=== PATIENT | male | born 1960 | race Caucasian/White ===

== ENCOUNTER 2016-11-23 13:36 | Emergency (ER) | payer MEDICAID, OTHER ==
[2016-11-23] MEDS ORDERED: ACETAMINOPHEN 325 MG TAB As Ordered ONE (16:33)
[2016-11-23] MEDS ORDERED: predniSONE 20 MG TAB As Ordered ONE (16:33)
[2016-11-23] MEDS ORDERED: ALBUTEROL SULFATE 2.5 MG/0.5 ML INH NEB SOLN As Ordered ONE (17:03)
[2016-11-23] MEDS ORDERED: IPRATROPIUM 0.5MG/ALBUTEROL 2.5MG INH SOL UD 3ML (DUONEB)(J7620) As Ordered ONE (17:03)
[2016-11-23] MEDS ORDERED: AZITHROMYCIN 250 MG TAB As Ordered ONE (17:21)
--- NOTE | 2016-11-23 17:21 | REP ---
PA and lateral chest: There are no comparisons. The lung hare are significantly hyperinflated with crowding of the interstitial markings in the lower lung zones, compatible with COPD, requiring clinical confirmation. There are no acute infiltrates or effusions. No masses. Cardiac size is normal. The mine, mediastinum, and bony thorax are unremarkable. Impression: There are no acute cardiopulmonary findings. There are findings compatible with COPD, requiring clinical confirmation. Signed by Washington Walls MD 11/23/2016 05:12 P
--- NOTE | 2016-11-23 17:30 | EDDOCDS ---
Physician Documentation [facility] Name: Newton Justin Age: 56 yrs Sex: Male : 1960 Arrival Date: 11/23/2016 Time: 13:36 Bed PR Private MD: NO PRIMARY PHYSICIAN, . Disposition: 11/23/16 17:21 Discharged to Home/Self Care. Impression: Acute bronchitis, Chronic obstructive pulmonary disease with (acute) exacerbation. - Condition is Stable. - Discharge Instructions: Acute Bronchitis, Asthma, Adult. - Prescriptions for Arnuity Ellipta 200 mcg/actuation Inhalation blister with device - inhale 1 puff by INHALATION route once daily; 1 Pump. Plavix 75 mg Oral Tablet - take 1 tablet by ORAL route once daily; 20 tablet. Hydrochlorothiazide 25 mg Oral Tablet - take 1 tablet by ORAL route once daily .; 30 tablet. Zithromax Z- Roberto 250 mg Oral Tablet - take 1 tablet by ORAL route as directed for 5 days Day 1- take two tablets once. Day 2, 3, 4 , 5 take one tablet once daily.; 6 tablet. Albuterol Sulfate 90 mcg/actuation Inhalation HFA Aerosol Inhaler - inhale 2 puff by INHALATION route every 4 hours As needed; 1 Inhaler. - Medication Reconciliation, Local Pharmacy Hours, Work Release Form - 1 day form. - Follow up: Private Physician; When: Call to arrange an appointment; Reason: Recheck today's complaints, Continuance of care. - Problem is new. - Symptoms have improved. Historical: - Allergies: Codeine Sulfate; - Home Meds: 1. Plavix 75 mg Oral tab 1 tab once daily 2. captopril 50 mg Oral tab 1 tab 2 times per day 3. hydrochlorothiazide 25 mg Oral tab 1 tab once daily 4. Arnuity Ellipta 100 mcg/actuation inhalation dsdv 1 puff once daily - PMHx: CVA (2009); Hypertension; COPD; - PSHx: none; - Social history: Smoking status: Patient uses tobacco products, light tobacco smoker. No barriers to communication noted, The patient speaks fluent Urdu, Speaks appropriately for age. - Family history: Not pertinent. - : The pt / caregiver states he / she is on anticoagulants: Plavix. Home medication list is obtained from the patient. - Exposure Risk Screening:: None identified. Vital Signs: 11/23 13:38 BP 155 / 90; Pulse 93; Resp 18 S; Temp 96.9(O); Pulse Ox 95% on R/A; Weight 106.59 kg / gr2 234.99 lbs (R); Height 5 ft. 10 in. (177.80 cm) (R); Pain 4/10; 17:28 BP 151 / 82; Pulse 83; Resp 18; Temp 97.6(O); Pulse Ox 97% on R/A; Pain 6/10; ct3 13:38 Body Mass Index 33.72 (106.59 kg, 177.80 cm) gr2 MDM: 16:26 predniSONE 60 mg PO once; administer with food or milk ordered. mo1 16:26 Albuterol-Ipratropium 3 ml Inhalation once ordered. mo1 16:26 Albuterol 5 mg Nebulizer once ordered. mo1 16:26 Acetaminophen Tablet 975 mg PO once ordered. mo1 16:27 -Influenza A&B Rapid Antigen - Nose Ordered. EDMS 16:28 Call Respiratory ordered. mo1 16:29 Call Respiratory complete. ct3 16:30 Chest, 2 View (pa\E\lat) Ordered. EDMS 17:02 -Influenza A&B Rapid Antigen - Nose Reviewed. mo1 17:18 azithromycin 500 mg PO once ordered. mo1 17:27 Chest, 2 View (pa\E\lat) Reviewed. mo1 Administered Medications: 16:35 Drug: Acetaminophen 975 mg [acetaminophen 325 mg tablet (3 tabs)] Route: PO; ttb 16:36 Drug: predniSONE 60 mg [prednisone 20 mg tablet (3 tabs)] Route: PO; ttb 17:10 Drug: Albuterol-Ipratropium 3 ml [ipratropium-albuterol 0.5 mg-3 mg(2.5 mg base)/3 mL js11 nebulization soln (3 mL)] Route: Inhalation; 17:10 Drug: Albuterol 5 mg [albuterol sulfate 2.5 mg/0.5 mL solution for nebulization (1 mL)] js11 Route: Nebulizer; 17:23 Drug: azithromycin 500 mg [azithromycin 250 mg tablet (2 tabs)] Route: PO; ttb Signatures: Dispatcher MedHost EDMS Randi Wright RN RN hs1 Marta Fernandez, WELFARE OFFICER WELFARE OFFICER ct3 Ines Dunham RN RN ttb Dae Wong PA PA mo1 Nick Feng js11 The chart was reviewed and I authenticate all verbal orders and agree with the evaluation and treatment provided.Corrections: (The following items were deleted from the chart) 16:33 16:27 Chest, 1 view+XR ordered. EDMS EDMS MTDD
--- NOTE | 2016-11-23 17:30 | EDDOCDS ---
Nurse's Notes [facility] Name: Newton Justin Age: 56 yrs Sex: Male : 1960 Arrival Date: 11/23/2016 Time: 13:36 Bed PR2 / Private MD: NO PRIMARY PHYSICIAN, . Diagnosis: Acute bronchitis;Chronic obstructive pulmonary disease with (acute) exacerbation Presentation: 11/23 13:50 Presenting complaint: Patient states: believes he is having a flare up of COPD and hs1 patient states he is severely SOB any time he exerts himself. Patient states he feels like he is starting to become worse and isn't getting better. Adult Sepsis Screening: The patient does not have new or worsening altered mentation. Patient's respiratory rate is less than 22. Systolic blood pressure is greater than 100. Patient has a qSOFA score of 0- Negative Sepsis Screen. Suicide/Homicide risk assessment- the patient denies having any suicidal and/or homicidal ideations and does not present with any other emotional, behavioral or mental health complaints. Status: Patient is not a customer service associate or dependent. Transition of care: patient was not received from another setting of care. 13:50 Acuity: PEARL Level 3 hs1 13:50 Method Of Arrival: Walkin/Carried/Asstd hs1 Triage Assessment: 13:52 General: Appears in no apparent distress, Behavior is appropriate for age, cooperative. hs1 Pain: Location: chest Pain currently is 8 out of 10 on a pain scale. Quality of pain is described as pressure. HIV screening NA for this visit Offered previously. Respiratory: Onset: The symptoms/episode began/occurred 1 week, Reports shortness of breath at rest on exertion. Historical: - Allergies: Codeine Sulfate; - Home Meds: 1. Plavix 75 mg Oral tab 1 tab once daily 2. captopril 50 mg Oral tab 1 tab 2 times per day 3. hydrochlorothiazide 25 mg Oral tab 1 tab once daily 4. Arnuity Ellipta 100 mcg/actuation inhalation dsdv 1 puff once daily - PMHx: CVA (2009); Hypertension; COPD; - PSHx: none; - Social history: Smoking status: Patient uses tobacco products, light tobacco smoker. No barriers to communication noted, The patient speaks fluent Macedonian, Speaks appropriately for age. - Family history: Not pertinent. - : The pt / caregiver states he / she is on anticoagulants: Plavix. Home medication list is obtained from the patient. - Exposure Risk Screening:: None identified. Screenin:24 Screening information is obtained from the patient. Fall risk: No risks identified. ttb Assistance ADL's: requires no assistance with activities of daily living. Abuse/DV Screen: The patient / caregiver reports he/she is: not in a situation that causes fear, pain or injury. Nutritional screening: No deficits noted. Advance Directives: Currently, there is no health care proxy. home support is adequate. Assessment: 16:15 General: Appears in no apparent distress, well nourished, well groomed, Behavior is ttb appropriate for age, cooperative, pleasant. Pain: Denies pain. Neurological: Level of Consciousness is awake, alert. Cardiovascular: Chest pain is denied. Respiratory: Airway is patent Respiratory effort is even, unlabored, shallow, Respiratory pattern is regular, symmetrical, pt states cough with deep breathing the patient has mild shortness of breath. Derm: Skin is normal. Injury Description: No known injury. 17:24 Reassessment: Patient appears in no apparent distress at this time. Patient denies pain ttb at this time. Patient states feeling better. Patient states symptoms have improved. Respiratory: Airway is patent Respiratory effort is even, unlabored. Vital Signs: 13:38 BP 155 / 90; Pulse 93; Resp 18 S; Temp 96.9(O); Pulse Ox 95% on R/A; Weight 106.59 kg gr2 (R); Height 5 ft. 10 in. (177.80 cm) (R); Pain 4/10; 17:28 BP 151 / 82; Pulse 83; Resp 18; Temp 97.6(O); Pulse Ox 97% on R/A; Pain 6/10; ct3 13:38 Body Mass Index 33.72 (106.59 kg, 177.80 cm) gr2 Vitals: 13:38 Log In Time: November 23, 2016 at 13:38. gr2 ED Course: 13:37 Patient visited by Birgit Rosales. gr2 13:37 Patient moved to Waiting gr2 13:38 NO PRIMARY PHYSICIAN, . is Private Physician. gr2 13:40 Patient visited by Birgit Rosales. gr2 13:51 Triage Initiated hs1 13:53 Patient moved to Pre RCE hs1 15:50 Patient moved to Triage 3 mlb1 16:20 Dae Wong PA is PHCP. mo1 16:20 Patrice Welch MD is Attending Physician. mo1 16:22 Patient visited by Dae Wong PA. mo1 16:29 Patient moved to PR2 / 26 ct3 16:32 -Influenza A&B Rapid Antigen - Nose Sent. ttb 17:03 Patient visited by Marta Fernandez PCA. ct3 17:23 Chest, 2 View (pa\E\lat) Returned. EDMS 17:24 The patient / caregiver is instructed regarding the plan of care and ED course. Patient ttb has correct armband on for positive identification. 17:24 No IV's were initiated during this patient's visit. No procedures done that require ttb assistance. 17:28 Patient visited by Marta Fernandez PCA. ct3 Administered Medications: 16:35 Drug: Acetaminophen 975 mg [acetaminophen 325 mg tablet (3 tabs)] Route: PO; ttb 16:36 Drug: predniSONE 60 mg [prednisone 20 mg tablet (3 tabs)] Route: PO; ttb 17:10 Drug: Albuterol-Ipratropium 3 ml [ipratropium-albuterol 0.5 mg-3 mg(2.5 mg base)/3 mL js11 nebulization soln (3 mL)] Route: Inhalation; 17:10 Drug: Albuterol 5 mg [albuterol sulfate 2.5 mg/0.5 mL solution for nebulization (1 mL)] js11 Route: Nebulizer; 17:23 Drug: azithromycin 500 mg [azithromycin 250 mg tablet (2 tabs)] Route: PO; ttb RT: 17:10 Initial Med Neb Given as ordered Patient was instructed and evaluated on procedure js11 Patient tolerated procedure well without adverse effect. Oxygen is room air. Respiratory: Breath sounds are diminished bilaterally. Breath sounds with wheezes bilaterally. at expiration. Order Results: Lab Order: -Influenza A&B Rapid Antigen - Nose; SPEC'M 11/23/16 16:30 Test: INFLUENZA A RAPID SCR by ICA; Value: INFLUENZA A RESULTS NEGATIVE; Status: F Test: INFLUENZA A RAPID SCR by ICA; Value: Comments:; Status: F Test: INFLUENZA B RAPID SCR by ICA; Value: INFLUENZA B RESULTS NEGATIVE; Status: F Test Note: ; The Influenza test is a direct rapid immunoassay for the qualitative detection of Influenza viral antigen. Cell culture (Viral Culture) testing should be considered to confirm NEGATIVE results and to assist in detecting other viruses that can provide similar clinical symptoms. Please contact the lab within 24 hours ([phone]) if confirmatory testing is desired. Radiology Order: Chest, 2 View (pa\E\lat) Test: Chest, 2 View (pa\E\lat) REASON FOR EXAMINATION: Cough; PA and lateral chest:; ; There are no comparisons.; ; The lung hare are significantly hyperinflated with crowding of the interstitial; markings in the lower lung zones, compatible with COPD, requiring clinical; confirmation.; ; There are no acute infiltrates or effusions. No masses.; ; Cardiac size is normal. The mine, mediastinum, and bony thorax are; unremarkable.; ; Impression:; ; There are no acute cardiopulmonary findings.; ; There are findings compatible with COPD, requiring clinical confirmation.; ; ; Signed by; Washington Walls MD 11/23/2016 05:12 P; Outcome: 17:21 Discharge ordered by Provider. mo1 17:24 Discharge Assessment: Patient awake, alert and oriented x 3. No cognitive and/or ttb functional deficits noted. Patient verbalized understanding of disposition instructions. Patient awake and alert. patient administered narcotics - no. The following High Risk Discharge criteria are identified: None. Discharged to home ambulatory. Condition: good Condition: stable Condition: improved. Discharge instructions given to patient, Instructed on discharge instructions, follow up and referral plans. medication usage, Demonstrated understanding of instructions, medications, Pt was receptive of discharge instructions/ teaching. No special radiology studies were completed. Property :Personal belongings accompany Pt. 17:27 Prescriptions given X 5. ttb 17:30 Patient left the ED. ttb Signatures: Dispatcher [employer] Dae Kang RN RN mlb1 Randi Wright RN RN hs1 Marta Fernandez, UNIT AIDE UNIT AIDE ct3 Nick Feng js11 Ines Dunham RN RN ttb Birgit Rosales gr2 Dae Wong PA PA mo1 MTDD
--- NOTE | 2016-11-25 18:30 | EDDOCDS ---
Physician Documentation [facility] Name: Newton Justin Age: 56 yrs Sex: Male : 1960 Arrival Date: 11/23/2016 Time: 13:36 Bed Private MD: NO PRIMARY PHYSICIAN, . Disposition: 11/23/16 17:21 Discharged to Home/Self Care. Impression: Acute bronchitis, Chronic obstructive pulmonary disease with (acute) exacerbation. - Condition is Stable. - Discharge Instructions: Acute Bronchitis, Asthma, Adult. - Prescriptions for Arnuity Ellipta 200 mcg/actuation Inhalation blister with device - inhale 1 puff by INHALATION route once daily; 1 Pump. Plavix 75 mg Oral Tablet - take 1 tablet by ORAL route once daily; 20 tablet. Hydrochlorothiazide 25 mg Oral Tablet - take 1 tablet by ORAL route once daily .; 30 tablet. Zithromax Z- Roberto 250 mg Oral Tablet - take 1 tablet by ORAL route as directed for 5 days Day 1- take two tablets once. Day 2, 3, 4 , 5 take one tablet once daily.; 6 tablet. Albuterol Sulfate 90 mcg/actuation Inhalation HFA Aerosol Inhaler - inhale 2 puff by INHALATION route every 4 hours As needed; 1 Inhaler. Prednisone 20 mg Oral Tablet - take 2 tablet by ORAL route once daily for 5 days; 10 tablet. - Medication Reconciliation, Local Pharmacy Hours, Work Release Form - 1 day form. - Follow up: Private Physician; When: Call to arrange an appointment; Reason: Recheck today's complaints, Continuance of care. - Problem is new. - Symptoms have improved. Historical: - Allergies: Codeine Sulfate; - Home Meds: 1. Plavix 75 mg Oral tab 1 tab once daily 2. captopril 50 mg Oral tab 1 tab 2 times per day 3. hydrochlorothiazide 25 mg Oral tab 1 tab once daily 4. Arnuity Ellipta 100 mcg/actuation inhalation dsdv 1 puff once daily - PMHx: CVA (2009); Hypertension; COPD; - PSHx: none; - Social history: Smoking status: Patient uses tobacco products, light tobacco smoker. No barriers to communication noted, The patient speaks fluent [place] Zealander, Speaks appropriately for age. - Family history: Not pertinent. - : The pt / caregiver states he / she is on anticoagulants: Plavix. Home medication list is obtained from the patient. - Exposure Risk Screening:: None identified. Vital Signs: 11/23 13:38 BP 155 / 90; Pulse 93; Resp 18 S; Temp 96.9(O); Pulse Ox 95% on R/A; Weight 106.59 kg / gr2 234.99 lbs (R); Height 5 ft. 10 in. (177.80 cm) (R); Pain 4/10; 17:28 BP 151 / 82; Pulse 83; Resp 18; Temp 97.6(O); Pulse Ox 97% on R/A; Pain 6/10; ct3 13:38 Body Mass Index 33.72 (106.59 kg, 177.80 cm) gr2 MDM: 16:26 predniSONE 60 mg PO once; administer with food or milk ordered. mo1 16:26 Albuterol-Ipratropium 3 ml Inhalation once ordered. mo1 16:26 Albuterol 5 mg Nebulizer once ordered. mo1 16:26 Acetaminophen Tablet 975 mg PO once ordered. mo1 16:27 -Influenza A&B Rapid Antigen - Nose Ordered. EDMS 16:28 Call Respiratory ordered. mo1 16:29 Call Respiratory complete. ct3 16:30 Chest, 2 View (pa\E\lat) Ordered. EDMS 17:02 -Influenza A&B Rapid Antigen - Nose Reviewed. mo1 17:18 azithromycin 500 mg PO once ordered. mo1 17:27 Chest, 2 View (pa\E\lat) Reviewed. mo1 17:32 [facility] Payment Agreement was scanned into [employer] and attached to record. [facility] 17:32 Financial registration complete. [facility] 11/24 13:06 T-Sheet-- Draft Copy was scanned into [employer] and attached to record. gb Administered Medications: 11/23 16:35 Drug: Acetaminophen 975 mg [acetaminophen 325 mg tablet (3 tabs)] Route: PO; ttb 16:36 Drug: predniSONE 60 mg [prednisone 20 mg tablet (3 tabs)] Route: PO; ttb 17:10 Drug: Albuterol-Ipratropium 3 ml [ipratropium-albuterol 0.5 mg-3 mg(2.5 mg base)/3 mL js11 nebulization soln (3 mL)] Route: Inhalation; 17:10 Drug: Albuterol 5 mg [albuterol sulfate 2.5 mg/0.5 mL solution for nebulization (1 mL)] js11 Route: Nebulizer; 17:23 Drug: azithromycin 500 mg [azithromycin 250 mg tablet (2 tabs)] Route: PO; ttb Signatures: Dispatcher MedHost EDMS Carmenza Payne, Kevin Reg gb Randi Wright RN RN hs1 Marta Fernandez, FACILITY MAINTENANCE TECHNICIAN FACILITY MAINTENANCE TECHNICIAN ct3 Ines Dunham RN RN ttb Dae Wong PA PA mo1 Beck, Gabriela gjb Nick Feng js11 The chart was reviewed and I authenticate all verbal orders and agree with the evaluation and treatment provided.Corrections: (The following items were deleted from the chart) 16:33 16:27 Chest, 1 view+XR ordered. EDMS EDMS Attachments: 17:32 [facility] Payment Agreement gjb 11/24 13:06 T-Sheet-- Draft Copy gb Chart Complete MTDD
--- NOTE | 2016-11-25 18:30 | EDDOCDS ---
Physician Documentation [facility] Name: Newton Justin Age: 56 yrs Sex: Male : 1960 Arrival Date: 11/23/2016 Time: 13:36 Bed Private MD: NO PRIMARY PHYSICIAN, . Disposition: 11/23/16 17:21 Discharged to Home/Self Care. Impression: Acute bronchitis, Chronic obstructive pulmonary disease with (acute) exacerbation. - Condition is Stable. - Discharge Instructions: Acute Bronchitis, Asthma, Adult. - Prescriptions for Arnuity Ellipta 200 mcg/actuation Inhalation blister with device - inhale 1 puff by INHALATION route once daily; 1 Pump. Plavix 75 mg Oral Tablet - take 1 tablet by ORAL route once daily; 20 tablet. Hydrochlorothiazide 25 mg Oral Tablet - take 1 tablet by ORAL route once daily .; 30 tablet. Zithromax Z- Roberto 250 mg Oral Tablet - take 1 tablet by ORAL route as directed for 5 days Day 1- take two tablets once. Day 2, 3, 4 , 5 take one tablet once daily.; 6 tablet. Albuterol Sulfate 90 mcg/actuation Inhalation HFA Aerosol Inhaler - inhale 2 puff by INHALATION route every 4 hours As needed; 1 Inhaler. Prednisone 20 mg Oral Tablet - take 2 tablet by ORAL route once daily for 5 days; 10 tablet. - Medication Reconciliation, Local Pharmacy Hours, Work Release Form - 1 day form. - Follow up: Private Physician; When: Call to arrange an appointment; Reason: Recheck today's complaints, Continuance of care. - Problem is new. - Symptoms have improved. Historical: - Allergies: Codeine Sulfate; - Home Meds: 1. Plavix 75 mg Oral tab 1 tab once daily 2. captopril 50 mg Oral tab 1 tab 2 times per day 3. hydrochlorothiazide 25 mg Oral tab 1 tab once daily 4. Arnuity Ellipta 100 mcg/actuation inhalation dsdv 1 puff once daily - PMHx: CVA (2009); Hypertension; COPD; - PSHx: none; - Social history: Smoking status: Patient uses tobacco products, light tobacco smoker. No barriers to communication noted, The patient speaks fluent Marshallese, Speaks appropriately for age. - Family history: Not pertinent. - : The pt / caregiver states he / she is on anticoagulants: Plavix. Home medication list is obtained from the patient. - Exposure Risk Screening:: None identified. Vital Signs: 11/23 13:38 BP 155 / 90; Pulse 93; Resp 18 S; Temp 96.9(O); Pulse Ox 95% on R/A; Weight 106.59 kg / gr2 234.99 lbs (R); Height 5 ft. 10 in. (177.80 cm) (R); Pain 4/10; 17:28 BP 151 / 82; Pulse 83; Resp 18; Temp 97.6(O); Pulse Ox 97% on R/A; Pain 6/10; ct3 13:38 Body Mass Index 33.72 (106.59 kg, 177.80 cm) gr2 MDM: 16:26 predniSONE 60 mg PO once; administer with food or milk ordered. mo1 16:26 Albuterol-Ipratropium 3 ml Inhalation once ordered. mo1 16:26 Albuterol 5 mg Nebulizer once ordered. mo1 16:26 Acetaminophen Tablet 975 mg PO once ordered. mo1 16:27 -Influenza A&B Rapid Antigen - Nose Ordered. EDMS 16:28 Call Respiratory ordered. mo1 16:29 Call Respiratory complete. ct3 16:30 Chest, 2 View (pa\E\lat) Ordered. EDMS 17:02 -Influenza A&B Rapid Antigen - Nose Reviewed. mo1 17:18 azithromycin 500 mg PO once ordered. mo1 17:27 Chest, 2 View (pa\E\lat) Reviewed. mo1 17:32 [facility] Payment Agreement was scanned into [employer] and attached to record. [facility] 17:32 Financial registration complete. [facility] 11/24 13:06 T-Sheet-- Draft Copy was scanned into [employer] and attached to record. gb Administered Medications: 11/23 16:35 Drug: Acetaminophen 975 mg [acetaminophen 325 mg tablet (3 tabs)] Route: PO; ttb 16:36 Drug: predniSONE 60 mg [prednisone 20 mg tablet (3 tabs)] Route: PO; ttb 17:10 Drug: Albuterol-Ipratropium 3 ml [ipratropium-albuterol 0.5 mg-3 mg(2.5 mg base)/3 mL js11 nebulization soln (3 mL)] Route: Inhalation; 17:10 Drug: Albuterol 5 mg [albuterol sulfate 2.5 mg/0.5 mL solution for nebulization (1 mL)] js11 Route: Nebulizer; 17:23 Drug: azithromycin 500 mg [azithromycin 250 mg tablet (2 tabs)] Route: PO; ttb Signatures: Dispatcher [employer]Host EDMS Carmenza Payne, Kevin Reg gb Randi Wright RN RN hs1 Marta Fernandez, MOLD CLEANING AND STORAGE SUPERVISOR MOLD CLEANING AND STORAGE SUPERVISOR ct3 Ines Dunham RN RN ttb Dae Wong PA PA mo1 Beck, Gabriela gjb Nick Feng js11 The chart was reviewed and I authenticate all verbal orders and agree with the evaluation and treatment provided.Corrections: (The following items were deleted from the chart) 16:33 16:27 Chest, 1 view+XR ordered. EDMS EDMS Attachments: 17:32 [facility] Payment Agreement gjb 11/24 13:06 T-Sheet-- Draft Copy gb Chart Complete MTDD
--- NOTE | 2016-11-25 18:30 | EDDOCDS ---
Nurse's Notes [facility] Name: Newton Justin Age: 56 yrs Sex: Male : 1960 Arrival Date: 11/23/2016 Time: 13:36 Bed PR2 / Private MD: NO PRIMARY PHYSICIAN, . Diagnosis: Acute bronchitis;Chronic obstructive pulmonary disease with (acute) exacerbation Presentation: 11/23 13:50 Presenting complaint: Patient states: believes he is having a flare up of COPD and hs1 patient states he is severely SOB any time he exerts himself. Patient states he feels like he is starting to become worse and isn't getting better. Adult Sepsis Screening: The patient does not have new or worsening altered mentation. Patient's respiratory rate is less than 22. Systolic blood pressure is greater than 100. Patient has a qSOFA score of 0- Negative Sepsis Screen. Suicide/Homicide risk assessment- the patient denies having any suicidal and/or homicidal ideations and does not present with any other emotional, behavioral or mental health complaints. Status: Patient is not a repair servicer or dependent. Transition of care: patient was not received from another setting of care. 13:50 Acuity: PEARL Level 3 hs1 13:50 Method Of Arrival: Walkin/Carried/Asstd hs1 Triage Assessment: 13:52 General: Appears in no apparent distress, Behavior is appropriate for age, cooperative. hs1 Pain: Location: chest Pain currently is 8 out of 10 on a pain scale. Quality of pain is described as pressure. HIV screening NA for this visit Offered previously. Respiratory: Onset: The symptoms/episode began/occurred 1 week, Reports shortness of breath at rest on exertion. Historical: - Allergies: Codeine Sulfate; - Home Meds: 1. Plavix 75 mg Oral tab 1 tab once daily 2. captopril 50 mg Oral tab 1 tab 2 times per day 3. hydrochlorothiazide 25 mg Oral tab 1 tab once daily 4. Arnuity Ellipta 100 mcg/actuation inhalation dsdv 1 puff once daily - PMHx: CVA (2009); Hypertension; COPD; - PSHx: none; - Social history: Smoking status: Patient uses tobacco products, light tobacco smoker. No barriers to communication noted, The patient speaks fluent Amharic, Speaks appropriately for age. - Family history: Not pertinent. - : The pt / caregiver states he / she is on anticoagulants: Plavix. Home medication list is obtained from the patient. - Exposure Risk Screening:: None identified. Screenin:24 Screening information is obtained from the patient. Fall risk: No risks identified. ttb Assistance ADL's: requires no assistance with activities of daily living. Abuse/DV Screen: The patient / caregiver reports he/she is: not in a situation that causes fear, pain or injury. Nutritional screening: No deficits noted. Advance Directives: Currently, there is no health care proxy. home support is adequate. Assessment: 16:15 General: Appears in no apparent distress, well nourished, well groomed, Behavior is ttb appropriate for age, cooperative, pleasant. Pain: Denies pain. Neurological: Level of Consciousness is awake, alert. Cardiovascular: Chest pain is denied. Respiratory: Airway is patent Respiratory effort is even, unlabored, shallow, Respiratory pattern is regular, symmetrical, pt states cough with deep breathing the patient has mild shortness of breath. Derm: Skin is normal. Injury Description: No known injury. 17:24 Reassessment: Patient appears in no apparent distress at this time. Patient denies pain ttb at this time. Patient states feeling better. Patient states symptoms have improved. Respiratory: Airway is patent Respiratory effort is even, unlabored. Vital Signs: 13:38 BP 155 / 90; Pulse 93; Resp 18 S; Temp 96.9(O); Pulse Ox 95% on R/A; Weight 106.59 kg gr2 (R); Height 5 ft. 10 in. (177.80 cm) (R); Pain 4/10; 17:28 BP 151 / 82; Pulse 83; Resp 18; Temp 97.6(O); Pulse Ox 97% on R/A; Pain 6/10; ct3 13:38 Body Mass Index 33.72 (106.59 kg, 177.80 cm) gr2 Vitals: 13:38 Log In Time: November 23, 2016 at 13:38. gr2 ED Course: 13:37 Patient visited by Birgit Rosales. gr2 13:37 Patient moved to Waiting gr2 13:38 NO PRIMARY PHYSICIAN, . is Private Physician. gr2 13:40 Patient visited by Birgit Rosales. gr2 13:51 Triage Initiated hs1 13:53 Patient moved to Pre RCE hs1 15:50 Patient moved to Triage 3 mlb1 16:20 Dae Wong PA is PHCP. mo1 16:20 Patrice Welch MD is Attending Physician. mo1 16:22 Patient visited by Dae Wong PA. mo1 16:29 Patient moved to PR2 / 26 ct3 16:32 -Influenza A&B Rapid Antigen - Nose Sent. ttb 17:03 Patient visited by Marta Fernandez PCA. ct3 17:23 Chest, 2 View (pa\E\lat) Returned. EDMS 17:24 The patient / caregiver is instructed regarding the plan of care and ED course. Patient ttb has correct armband on for positive identification. 17:24 No IV's were initiated during this patient's visit. No procedures done that require ttb assistance. 17:28 Patient visited by Marta Fernandez PCA. ct3 17:32 [facility] [place] Payment Agreement was scanned into [employer] and attached to record. gjb 11/24 13:06 T-Sheet-- Draft Copy was scanned into [employer] and attached to record. gb Administered Medications: 11/23 16:35 Drug: Acetaminophen 975 mg [acetaminophen 325 mg tablet (3 tabs)] Route: PO; ttb 16:36 Drug: predniSONE 60 mg [prednisone 20 mg tablet (3 tabs)] Route: PO; ttb 17:10 Drug: Albuterol-Ipratropium 3 ml [ipratropium-albuterol 0.5 mg-3 mg(2.5 mg base)/3 mL js11 nebulization soln (3 mL)] Route: Inhalation; 17:10 Drug: Albuterol 5 mg [albuterol sulfate 2.5 mg/0.5 mL solution for nebulization (1 mL)] js11 Route: Nebulizer; 17:23 Drug: azithromycin 500 mg [azithromycin 250 mg tablet (2 tabs)] Route: PO; ttb RT: 17:10 Initial Med Neb Given as ordered Patient was instructed and evaluated on procedure js11 Patient tolerated procedure well without adverse effect. Oxygen is room air. Respiratory: Breath sounds are diminished bilaterally. Breath sounds with wheezes bilaterally. at expiration. Order Results: Lab Order: -Influenza A&B Rapid Antigen - Nose; SPEC'M 11/23/16 16:30 Test: INFLUENZA A RAPID SCR by ICA; Value: INFLUENZA A RESULTS NEGATIVE; Status: F Test: INFLUENZA A RAPID SCR by ICA; Value: Comments:; Status: F Test: INFLUENZA B RAPID SCR by ICA; Value: INFLUENZA B RESULTS NEGATIVE; Status: F Test Note: ; The Influenza test is a direct rapid immunoassay for the qualitative detection of Influenza viral antigen. Cell culture (Viral Culture) testing should be considered to confirm NEGATIVE results and to assist in detecting other viruses that can provide similar clinical symptoms. Please contact the lab within 24 hours ([phone]) if confirmatory testing is desired. Radiology Order: Chest, 2 View (pa\E\lat) Test: Chest, 2 View (pa\E\lat) REASON FOR EXAMINATION: Cough; PA and lateral chest:; ; There are no comparisons.; ; The lung hare are significantly hyperinflated with crowding of the interstitial; markings in the lower lung zones, compatible with COPD, requiring clinical; confirmation.; ; There are no acute infiltrates or effusions. No masses.; ; Cardiac size is normal. The mine, mediastinum, and bony thorax are; unremarkable.; ; Impression:; ; There are no acute cardiopulmonary findings.; ; There are findings compatible with COPD, requiring clinical confirmation.; ; ; Signed by; Washington Walls MD 11/23/2016 05:12 P; Outcome: 17:21 Discharge ordered by Provider. mo1 17:24 Discharge Assessment: Patient awake, alert and oriented x 3. No cognitive and/or ttb functional deficits noted. Patient verbalized understanding of disposition instructions. Patient awake and alert. patient administered narcotics - no. The following High Risk Discharge criteria are identified: None. Discharged to home ambulatory. Condition: good Condition: stable Condition: improved. Discharge instructions given to patient, Instructed on discharge instructions, follow up and referral plans. medication usage, Demonstrated understanding of instructions, medications, Pt was receptive of discharge instructions/ teaching. No special radiology studies were completed. Property :Personal belongings accompany Pt. 17:27 Prescriptions given X 5. ttb 17:30 Patient left the ED. ttb Signatures: Dispatcher [employer] EDAK Carmenza Payne, Kevin Reg Dae Mejia, RN RN mlb1 Randi Wright RN RN hs1 Marta Fernandez HOST COORDINATOR HOST COORDINATOR ct3 Nick Feng js11 Ines Dunham, RN RN ttb Birgit Rosales gr2 Dae Wong PA PA mo1 Dary Enciso Chart Complete MTDD
== END 2016-11-23 17:30 | disposition home or self-care (01) ==
LOC: M ED 13:36
DX: J06.9 Acute upper respiratory infection, unspecified (principal); J20.9 Acute bronchitis, unspecified; J44.1 Chronic obstructive pulmonary disease with (acute) exacerbation; I10 Essential (primary) hypertension; Z86.73 Personal history of transient ischemic attack (TIA), and cerebral infarction without residual deficits; Z79.899 Other long term (current) drug therapy; Z79.01 Long term (current) use of anticoagulants; Z79.51 Long term (current) use of inhaled steroids; Z88.2 Allergy status to sulfonamides; Z88.5 Allergy status to narcotic agent; F17.210 Nicotine dependence, cigarettes, uncomplicated

== ENCOUNTER 2016-12-20 12:38 | Inpatient (IN) | payer OTHER ==
[~2016-12-20] VITALS: Ht 177.8 cm; Wt 104.6 kg
[2016-12-20] MEDS ORDERED: CLOP75TA2 PO (12:54)
[2016-12-20] MEDS ORDERED: ATOR1TAB21 PO (13:06)
[2016-12-20] MEDS ORDERED: LOSA50TA20 PO (13:10)
[2016-12-20] MEDS ORDERED: BREO1INH3 INH (13:10)
[2016-12-20] MEDS ORDERED: HYDR12.55 PO (13:10)
[2016-12-20] MEDS ORDERED: ALBU17IN INH (13:10)
[2016-12-20] MEDS ORDERED: IPRATROPIUM 0.5MG/ALBUTEROL 2.5MG INH SOL UD 3ML (DUONEB)(J7620) As Ordered ONE (14:43)
[2016-12-20 14:44] LABS: ABG BASE EXCESS 2.6 (-2.0-2.0); ABG PARTIAL PRESSURE CO2 36.4 mmHg (35.0-45.0); ABG PARTIAL PRESSURE O2 60.9 mmHg (75.0-100.0); ABG STANDARD HCO3 26.6 MEQ/L (22.0-26.0); ABG TOTAL CO2 27.1 MEQ/L (22.0-29.0); ABG pH (ARTERIAL) 7.471 UNITS (7.350-7.450)
[2016-12-20] MEDS ORDERED: IPRATROPIUM 0.5MG/ALBUTEROL 2.5MG INH SOL UD 3ML (DUONEB)(J7620) NEB ONE ×3 (14:45)
[2016-12-20 14:55] LABS: BASO % 0.6 % (0.0-1.0); EOS % 0.4 % (0.0-3.0); LARGE UNSTAINED CELL # 0.1 K/mm3 (0.0-0.4); LARGE UNSTAINED CELL % 1.3 % (0.0-4.0); LYMPH # 0.7 K/mm3 (1.5-4.5); MEAN CORPUSCULAR HEMOGLOBIN 27.9 pg (27.0-33.0); MEAN CORPUSCULAR HGB CONC 33.6 g/dl (32.0-36.5); MONO # 0.6 K/mm3 (0.0-0.8); MONO % 7.7 % (0.0-5.0); NEUTROPHILS # 6.5 K/mm3 (1.8-7.7); PLATELET COUNT, AUTOMATED 173 k/mm3 (150-450); RED CELL DISTRIBUTION WIDTH 13.5 % (11.5-14.5)
[2016-12-20] MEDS ORDERED: predniSONE 50 MG TAB PO ONE ×2 (15:00→15:30)
[2016-12-20 15:14] LABS: ALBUMIN 3.8 GM/DL (3.2-5.2); ALBUMIN/GLOBULIN RATIO 1.23 (1.00-1.93); ALKALINE PHOSPHATASE 97 U/L (45-117); ALT/SGPT 20 U/L (12-78); ANION GAP 8 MEQ/L (8-16); AST/SGOT 18 U/L (15-37); BILIRUBIN,DIRECT 0.2 MG/DL (0.0-0.2); BILIRUBIN,TOTAL 0.5 MG/DL (0.2-1.0); BLOOD UREA NITROGEN 16 MG/DL (7-18); CALCIUM LEVEL 8.8 MG/DL (8.5-10.1); CARBON DIOXIDE LEVEL 30 MEQ/L (21-32); CHLORIDE LEVEL 103 MEQ/L (98-107); CREATININE FOR GFR 0.98 MG/DL (0.70-1.30); GLOMERULAR FILTRATION RATE > 60.0 (>56); GLUCOSE, FASTING 94 MG/DL (70-105); POTASSIUM SERUM 3.9 MEQ/L (3.5-5.1); SODIUM LEVEL 141 MEQ/L (136-145); TOTAL PROTEIN 6.9 GM/DL (6.4-8.2)
[2016-12-20] MEDS ORDERED: predniSONE 20 MG TAB PO ONE (15:30)
[2016-12-20] MEDS ORDERED: ACETAMINOPHEN 325 MG TAB As Ordered ONE (15:41)
[2016-12-20] MEDS ORDERED: ACETAMINOPHEN 325 MG TAB PO ONE (15:45)
--- NOTE | 2016-12-20 16:23 | REP ---
Chest x-ray: Two views: History: Short of breath. Findings: Comparison study 11/23/2016. The lungs are well inflated and free of infiltrate. Pleural angles are sharp. Heart size is normal. The aorta is somewhat tortuous. There are degenerative changes in the right shoulder and in the thoracic spine. Impression: No active disease. Signed by Ghassan Torres MD 12/20/2016 05:08 P
[2016-12-20] MEDS ORDERED: HYDR25TAB PO (17:01)
[2016-12-20] MEDS ORDERED: ACET50TAOT PO (17:01)
[2016-12-20] MEDS ORDERED: ADVI200T PO (17:01)
[2016-12-20] MEDS ORDERED: ARNU1INH3 INH (17:01)
[2016-12-20] MEDS ORDERED: IPRATROPIUM 0.5MG/ALBUTEROL 2.5MG INH SOL UD 3ML (DUONEB)(J7620) NEB PRN (17:15)
[2016-12-20] MEDS ORDERED: ONDANSETRON 4MG/2ML VIAL (J2405) IV PRN (17:15)
[2016-12-20] MEDS ORDERED: ACETAMINOPHEN TAB 650MG DOSE (2X325MG) PO PRN (17:15)
[2016-12-20] MEDS ORDERED: ONDANSETRON 4 MG TAB (S0181) PO PRN (17:15)
[2016-12-20 17:43] VITALS: BP 140/77
--- NOTE | 2016-12-20 17:55 | HPEPDOC ---
Medical History and Physical Date of Admission 12/20/2016 History and Physical HISTORY AND PHYSICAL Date of admission: 12/20/2016 PCP: Residency clinic Chief complaint: Very short of breath HPI: 56-year-old male with COPD, hypertension, history of CVA who presented with shortness of breath and increased sputum. He reports that approximately 1- 2 weeks ago he was treated for bronchitis with his primary care physician and initially started to feel better. However, he notes that any time the weather gets very cold, his breathing gets worse. He states that over the weekend, when the temperatures dropped to around 0, he started to have a lot more shortness of breath and green sputum. He states that it got to the point where he would get so short of breath when he walked that he couldn't talk. He attempted to use his rescue inhaler, but discovered that this only helped a little bit. He does report multiple sick colleagues at his place of employment. In the emergency department, he was hypoxic and required 2 L of oxygen to reach the low 90s. Upon my examination, he was able to move air, but the ER physician reports that when he first arrived, he was extremely tight. By the time I saw him, he had already received steroids and DuoNeb's. Past medical history: COPD, hypertension, history of CVA Past surgical history: None Family history: His father of lung cancer Social history: Denies alcohol and drug use. He states that he used to smoke approximately one pack per day, but he has been working on cutting down and is down to approximately half a pack per day. He does note however, that he has not had anything to smoke in the last 4 days. Allergies: Codeine Review of systems: General: Positive for chills. Negative for weight loss Eyes: Negative for vision changes and ocular discharge ENT: Positive for sore throat. Negative for nose bleed Cardiovascular: Positive for palpitations. He denies any true chest pain, but does note that his chest feels very tight whenever he takes a deep breath. Respiratory: Positive for cough, shortness of breath, wheezing GI: Negative for nausea, vomiting, diarrhea, constipation Musculoskeletal: Negative for neck and back pain Skin: Negative for rash Neuro: Positive for headache behind his eyes. Negative for numbness and tingling. Psych: Negative for depression and suicidal ideation Endocrine: Negative for polyuria : Negative for dysuria Heme: Negative for bruising and bleeding Home meds: See below Physical exam: Vital signs: Vital Sign - Last 24 Hours 12/20/16 12/20/16 12/20/16 12/20/16 12:39 12:48 14:42 14:53 Temp 100.0 100.0 Pulse 107 107 124 Resp 30 30 B/P 164/112 164/112 Pulse Ox 94 94 O2 Delivery Room Air Room Air Room Air 12/20/16 12/20/16 12/20/16 12/20/16 15:38 15:48 15:52 17:43 Temp 101.9 97.6 Pulse 118 92 Resp 28 22 B/P 140/77 Pulse Ox 96 94 O2 Delivery Nasal Cannula Nasal Cannula Nasal Cannula O2 Flow Rate 2 2 1.0 Gen.: awake, alert, no acute distress Eyes: Extraocular movements intact, normal sclera ENT: Moist mucous membranes Cardiovascular: RRR, no murmurs rubs or gallops Lungs: Diminished, but no wheeze and able to move air Abdomen: Soft, NT/ND, normal BS Musculoskeletal: normal range of motion Extremities: No peripheral edema Neuro: alert and oriented 3, normal speech, no focal deficits Psych: Normal mood with congruent affect Labs and radiology: See below CBC, CMP, lactate, troponin, BNP, TSH are all unremarkable Chest x-ray is negative for acute process, flu screen and respiratory virus panel are negative Blood cultures and sputum cultures are pending Assessment and plan: 56-year-old male with COPD, hypertension, history of CVA who is admitted with a COPD exacerbation. 1. COPD exacerbation: We will continue the patient on Solu-Medrol and DuoNeb's. He does have a fever to 101.9, but his white count is normal, and his chest x- ray is unremarkable. We will start him on Levaquin, and follow-up blood cultures and sputum cultures. The patient uses a maintenance inhaler that we do not have on formulary here, so I will substitute Advair. 2. Hypertension: Continue home ARB and HCTZ. 3. History of CVA: Continue home statin and Plavix. Control blood pressure. DVT prophylaxis: Lovenox Dispo: admit as inpatient to the service of Dr. Cruz CODE STATUS: Full code Vital Signs see above Laboratory Data Labs 24H Laboratory Tests 2 12/20/16 14:05: Arterial Blood pH 7.471H, Arterial Blood Partial Pressure CO2 36.4, Arterial Blood Partial Pressure O2 60.9L, Arterial Blood Total CO2 27.1, Arterial Blood HCO3 26.0, Arterial Blood Base Excess 2.6H, Arterial Blood Oxygen Saturation 93.0L, Blood Gas Bicarbonate Standard 26.6H 12/20/16 14:24: Aspartate Amino Transf (AST/SGOT) 18, Alanine Aminotransferase (ALT/SGPT) 20, Alkaline Phosphatase 97, Total Bilirubin 0.5, Direct Bilirubin 0.2, Albumin 3.8 , Albumin/Globulin Ratio 1.23, Anion Gap 8, B-Type Natriuretic Peptide 49.5, White Blood Count 8.0, Red Blood Count 5.88, Hemoglobin 16.4, Hematocrit 48.8, Mean Corpuscular Volume 83.0, Mean Corpuscular Hemoglobin 27.9, Mean Corpuscular Hemoglobin Concent 33.6, Red Cell Distribution Width 13.5, Platelet Count 173, Neutrophils (%) (Auto) 82.0H, Lymphocytes (%) (Auto) 8.0L, Monocytes (%) (Auto) 7.7H, Eosinophils (%) (Auto) 0.4, Basophils (%) (Auto) 0.6, Neutrophils # (Auto) 6.5, Lymphocytes # (Auto) 0.7L, Monocytes # (Auto) 0.6, Eosinophils # (Auto) 0.0, Basophils # (Auto) 0.0, Calcium Level 8.8, Creatine Kinase MB 1.3, Creatine Kinase MB Relative Index 1.26, Glomerular Filtration Rate > 60.0, Lactic Acid (Sepsis) 1.2, Large Unclassified Cells # 0.1, Large Unclassified Cells % 1.3, Thyroid Stimulating Hormone (TSH) 0.921, Total Creatine Kinase 103, Total Protein 6.9, Troponin I < 0.02 CBC/BMP Laboratory Tests 12/20/16 14:24 Red Blood Count 5.88, Mean Corpuscular Volume 83.0, Mean Corpuscular Hemoglobin 27.9, Mean Corpuscular Hemoglobin Concent 33.6, Red Cell Distribution Width 13.5 , Neutrophils (%) (Auto) 82.0 H, Lymphocytes (%) (Auto) 8.0 L, Monocytes (%) ( Auto) 7.7 H, Eosinophils (%) (Auto) 0.4, Basophils (%) (Auto) 0.6, Neutrophils # (Auto) 6.5, Lymphocytes # (Auto) 0.7 L, Monocytes # (Auto) 0.6, Eosinophils # (Auto) 0.0, Basophils # (Auto) 0.0 Microbiology Microbiology 12/20/16 Blood Culture, Received Pending 12/20/16 Respiratory Virus Panel (PCR) (DORA) - Final, Complete 12/20/16 Influenza Virus Type A Antigen - Final, Complete 12/20/16 Influenza Virus Type B Antigen - Final, Complete 12/20/16 Gram Stain - Final, Resulted 12/20/16 Sputum Culture, Resulted Pending Home Medications Scheduled (Arnuity Ellipta) 200 Mcg/Act Inh 200 MCG INH QHS Atorvastatin Calcium (Atorvastatin Calcium) 20 Mg Tab 20 MG PO QHS Clopidogrel Bisulfate (Clopidogrel) 75 Mg Tab 75 MG PO QHS Hydrochlorothiazide (Hydrochlorothiazide) 25 Mg Tab 25 MG PO QHS Losartan Potassium (Losartan Potassium) 50 Mg Tab 50 MG PO QHS Scheduled PRN Acetaminophen (Acetaminophen) 500 Mg Tab 500 MG PO PRN PAIN Albuterol Sulfate (Ventolin Hfa) 200 Puff/8 Gm Aers 2 PUFF INH QID PRN PRN RESPIRATORY DISTRESS Ibuprofen (Advil) 200 Mg Tab 200 MG PO PRN PAIN Allergies Coded Allergies: Codeine (Verified Adverse Reaction, Unknown, nausea, 12/20/16) GOMEZ GUNN Dec 20, 2016 17:55
[2016-12-20] MEDS: LevoFLOXacin IV 750 MG in APPROPRIATE DILUENT 1 EA IV SCH (20:16)
[2016-12-20 20:46] VITALS: BP 135/89
[2016-12-20] MEDS: ATORVASTATIN 20 MG TAB PO SCH (21:50)
[2016-12-20] MEDS: CLOPIDOGREL 75 MG TAB PO SCH (21:50)
[2016-12-20] MEDS: hydroCHLOROthiazide 25 MG TAB PO SCH (21:50)
[2016-12-20] MEDS: LOSARTAN 50 MG TAB PO SCH (21:51)
[2016-12-20] MEDS: methylPREDNISolone INJ 125 MG/2 ML VIAL (J2930) IV SCH (21:51)
[2016-12-20] MEDS: IPRATROPIUM 0.5MG/ALBUTEROL 2.5MG INH SOL UD 3ML (DUONEB)(J7620) NEB SCH (22:59)
[2016-12-21] MEDS: ADVAIR DISKUS 100/50 INH PWD INH SCH ×3 (01:16→20:47)
[2016-12-21] MEDS: IPRATROPIUM 0.5MG/ALBUTEROL 2.5MG INH SOL UD 3ML (DUONEB)(J7620) NEB SCH ×4 (01:56→20:00)
[2016-12-21] MEDS: methylPREDNISolone INJ 125 MG/2 ML VIAL (J2930) IV SCH ×3 (02:53→18:18)
[2016-12-21 03:46] VITALS: BP 158/100
[2016-12-21 06:00] VITALS: BP 158/98
[2016-12-21 06:58] LABS: EOS % 0.1 % (0.0-3.0); LARGE UNSTAINED CELL # 0.1 K/mm3 (0.0-0.4); LARGE UNSTAINED CELL % 0.5 % (0.0-4.0); LYMPH # 0.6 K/mm3 (1.5-4.5); LYMPH % 4.4 % (24.0-44.0); MEAN CORPUSCULAR HEMOGLOBIN 27.6 pg (27.0-33.0); MEAN CORPUSCULAR VOLUME 83.6 fl (80.0-96.0); MONO # 0.2 K/mm3 (0.0-0.8); NEUTROPHILS # 10.5 K/mm3 (1.8-7.7); NEUTROPHILS % 92.9 % (36.0-66.0); PLATELET COUNT, AUTOMATED 173 k/mm3 (150-450); RED CELL DISTRIBUTION WIDTH 13.4 % (11.5-14.5); WHITE BLOOD COUNT 11.3 K/mm3 (4.0-10.0)
[2016-12-21 07:20] LABS: ANION GAP 11 MEQ/L (8-16); BLOOD UREA NITROGEN 21 MG/DL (7-18); CALCIUM LEVEL 9.6 MG/DL (8.5-10.1); CARBON DIOXIDE LEVEL 29 MEQ/L (21-32); CHLORIDE LEVEL 99 MEQ/L (98-107); CREATININE FOR GFR 0.99 MG/DL (0.70-1.30); GLOMERULAR FILTRATION RATE > 60.0 (>56); GLUCOSE, FASTING 168 MG/DL (70-105); MAGNESIUM LEVEL 2.2 MG/DL (1.8-2.4); POTASSIUM SERUM 3.5 MEQ/L (3.5-5.1); SODIUM LEVEL 139 MEQ/L (136-145)
[2016-12-21] MEDS: ENOXAPARIN 40 MG/0.4 ML SYRINGE (J1650) SC SCH (09:11)
--- NOTE | 2016-12-21 11:03 | ECGEPIP ---
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
--- NOTE | 2016-12-21 11:35 | IPNPDOC ---
Subjective Date Seen The patient was seen on 12/21/16. Subjective Chief Complaint/HPI The patient is a 56-year-old male admitted with a reason for visit of Copd Exacerbation. General: Denies: Chills, Night Sweats Constitutional: Denies: Chills, Fever Eyes: Denies: Pain, Vision change ENT: Denies: Ear Pain, Head Aches Skin: Denies: Lesions, Rash Pulmonary: Reports: Cough, Dyspnea Cardiovascular: Denies: Chest Pain, Palpitations Gastrointestinal: Denies: Nausea, Vomiting Genitourinary: Denies: Dysuria, Frequency Hematologic: Denies: Bleeding Excessively, Bruising Objective Physical Examination General Exam: Positive: Alert, Cooperative, No Acute Distress ENT Exam: Positive: Atraumatic, Mucous membr. moist/pink Neck Exam: Negative: JVD Chest Exam: Positive: Diminished, Rhonchi, Negative: Rales, Wheezing Heart Exam: Positive: Normal S1, Normal S2, Rate Normal Abdomen Exam: Positive: Soft, Negative: Tenderness Extremity Exam: Negative: Swelling, Tenderness Assessment /Plan Plan/VTE VTE Prophylaxis Ordered?: Yes Plan Acute Hypoxia secondary to COPD exacerbation Patient states that he is feeling much better today Respiratory panel, influenza panel negative Chest x-ray with no acute disease noted Continue on Solu-Medrol, Advair, and DuoNeb's. Continue on Levaquin Blood cultures and sputum cultures pending. Patient currently requiring 3 L of oxygen via nasal cannula We will continue to monitor the patient's respiratory status and down titrate oxygen requirements as tolerated Hypertension, stable Continue home ARB and HCTZ. History of CVA Continue Statin and Plavix DVT prophylaxis: Lovenox Disposition-we will continue to monitor the patient's respiratory status, and down taper IV steroids and supplemental oxygen requirements as tolerated. VS, I&O, 24H, [facility] Vital Signs/I&O Vital Signs Date Time Temp Pulse Resp B/P Pulse Ox O2 Delivery O2 Flow Rate FiO2 12/21/16 06:00 97.8 95 20 158/98 91 Nasal Cannula 3.0 I&O- Last 24 Hours up to 6 AM 12/21/16 05:59 Intake Total 720 ml Output Total 750 ml Balance -30 ml Laboratory Data 24H LABS Laboratory Tests 2 12/20/16 14:05: Arterial Blood pH 7.471H, Arterial Blood Partial Pressure CO2 36.4, Arterial Blood Partial Pressure O2 60.9L, Arterial Blood Total CO2 27.1, Arterial Blood HCO3 26.0, Arterial Blood Base Excess 2.6H, Arterial Blood Oxygen Saturation 93.0L, Blood Gas Bicarbonate Standard 26.6H 12/20/16 14:24: Aspartate Amino Transf (AST/SGOT) 18, Alanine Aminotransferase (ALT/SGPT) 20, Alkaline Phosphatase 97, Total Bilirubin 0.5, Direct Bilirubin 0.2, Albumin 3.8 , Albumin/Globulin Ratio 1.23, Anion Gap 8, B-Type Natriuretic Peptide 49.5, White Blood Count 8.0, Red Blood Count 5.88, Hemoglobin 16.4, Hematocrit 48.8, Mean Corpuscular Volume 83.0, Mean Corpuscular Hemoglobin 27.9, Mean Corpuscular Hemoglobin Concent 33.6, Red Cell Distribution Width 13.5, Platelet Count 173, Neutrophils (%) (Auto) 82.0H, Lymphocytes (%) (Auto) 8.0L, Monocytes (%) (Auto) 7.7H, Eosinophils (%) (Auto) 0.4, Basophils (%) (Auto) 0.6, Neutrophils # (Auto) 6.5, Lymphocytes # (Auto) 0.7L, Monocytes # (Auto) 0.6, Eosinophils # (Auto) 0.0, Basophils # (Auto) 0.0, Calcium Level 8.8, Creatine Kinase MB 1.3, Creatine Kinase MB Relative Index 1.26, Glomerular Filtration Rate > 60.0, Lactic Acid (Sepsis) 1.2, Large Unclassified Cells # 0.1, Large Unclassified Cells % 1.3, Thyroid Stimulating Hormone (TSH) 0.921, Total Creatine Kinase 103, Total Protein 6.9, Troponin I < 0.02 12/21/16 05:58: Anion Gap 11, White Blood Count 11.3H, Red Blood Count 5.75, Hemoglobin 15.9, Hematocrit 48.1, Mean Corpuscular Volume 83.6, Mean Corpuscular Hemoglobin 27.6 , Mean Corpuscular Hemoglobin Concent 33.0, Red Cell Distribution Width 13.4, Platelet Count 173, Neutrophils (%) (Auto) 92.9H, Lymphocytes (%) (Auto) 4.4L, Monocytes (%) (Auto) 2.0, Eosinophils (%) (Auto) 0.1, Basophils (%) (Auto) 0.0, Neutrophils # (Auto) 10.5H, Lymphocytes # (Auto) 0.6L, Monocytes # (Auto) 0.2, Eosinophils # (Auto) 0.0, Basophils # (Auto) 0.0, Calcium Level 9.6, Glomerular Filtration Rate > 60.0, Large Unclassified Cells # 0.1, Large Unclassified Cells % 0.5, Blood Urea Nitrogen 21H, Creatinine 0.99, Sodium Level 139, Potassium Level 3.5, Chloride Level 99, Carbon Dioxide Level 29, Magnesium Level 2.2 CBC/BMP Laboratory Tests 12/20/16 14:24 Red Blood Count 5.88, Mean Corpuscular Volume 83.0, Mean Corpuscular Hemoglobin 27.9, Mean Corpuscular Hemoglobin Concent 33.6, Red Cell Distribution Width 13.5 , Neutrophils (%) (Auto) 82.0 H, Lymphocytes (%) (Auto) 8.0 L, Monocytes (%) ( Auto) 7.7 H, Eosinophils (%) (Auto) 0.4, Basophils (%) (Auto) 0.6, Neutrophils # (Auto) 6.5, Lymphocytes # (Auto) 0.7 L, Monocytes # (Auto) 0.6, Eosinophils # (Auto) 0.0, Basophils # (Auto) 0.0 12/21/16 05:58 Red Blood Count 5.75, Mean Corpuscular Volume 83.6, Mean Corpuscular Hemoglobin 27.6, Mean Corpuscular Hemoglobin Concent 33.0, Red Cell Distribution Width 13.4 , Neutrophils (%) (Auto) 92.9 H, Lymphocytes (%) (Auto) 4.4 L, Monocytes (%) ( Auto) 2.0, Eosinophils (%) (Auto) 0.1, Basophils (%) (Auto) 0.0, Neutrophils # ( Auto) 10.5 H, Lymphocytes # (Auto) 0.6 L, Monocytes # (Auto) 0.2, Eosinophils # (Auto) 0.0, Basophils # (Auto) 0.0, Calcium Level 9.6 Microbiology Microbiology 12/20/16 Blood Culture, Received Pending 12/20/16 Blood Culture, Received Pending 12/20/16 Respiratory Virus Panel (PCR) (DORA) - Final, Complete 12/20/16 Influenza Virus Type A Antigen - Final, Complete 12/20/16 Influenza Virus Type B Antigen - Final, Complete 12/20/16 Gram Stain - Final, Resulted 12/20/16 Sputum Culture, Resulted Pending JASON SHANE MD Dec 21, 2016 11:35
[2016-12-21 14:00] VITALS: BP 125/65
[2016-12-21] MEDS: LevoFLOXacin IV 750 MG in APPROPRIATE DILUENT 1 EA IV SCH (18:18)
[2016-12-21] MEDS: CLOPIDOGREL 75 MG TAB PO SCH (20:45)
[2016-12-21] MEDS: LOSARTAN 50 MG TAB PO SCH (20:45)
[2016-12-21] MEDS: ATORVASTATIN 20 MG TAB PO SCH (20:46)
[2016-12-21] MEDS: hydroCHLOROthiazide 25 MG TAB PO SCH (20:46)
[2016-12-21 20:48] VITALS: O2SAT 96
[2016-12-21] MEDS ORDERED: diphenhydrAMINE 25 MG CAP PO ONE (23:30)
[2016-12-22] MEDS: IPRATROPIUM 0.5MG/ALBUTEROL 2.5MG INH SOL UD 3ML (DUONEB)(J7620) NEB SCH ×5 (01:44→23:10)
[2016-12-22] MEDS: methylPREDNISolone INJ 125 MG/2 ML VIAL (J2930) IV SCH ×2 (02:48→10:11)
[2016-12-22 06:00] VITALS: BP 124/65
[2016-12-22 07:12] LABS: BASO % 0.1 % (0.0-1.0); EOS % 0.2 % (0.0-3.0); LARGE UNSTAINED CELL # 0.1 K/mm3 (0.0-0.4); LARGE UNSTAINED CELL % 0.4 % (0.0-4.0); LYMPH # 0.9 K/mm3 (1.5-4.5); LYMPH % 4.3 % (24.0-44.0); MEAN CORPUSCULAR HEMOGLOBIN 27.7 pg (27.0-33.0); MEAN CORPUSCULAR HGB CONC 33.6 g/dl (32.0-36.5); MEAN CORPUSCULAR VOLUME 82.4 fl (80.0-96.0); MONO # 0.6 K/mm3 (0.0-0.8); MONO % 3.5 % (0.0-5.0); NEUTROPHILS # 16.8 K/mm3 (1.8-7.7); NEUTROPHILS % 91.6 % (36.0-66.0); PLATELET COUNT, AUTOMATED 177 k/mm3 (150-450); RED CELL DISTRIBUTION WIDTH 13.3 % (11.5-14.5); WHITE BLOOD COUNT 18.3 K/mm3 (4.0-10.0)
[2016-12-22 07:20] LABS: ANION GAP 10 MEQ/L (8-16); BLOOD UREA NITROGEN 25 MG/DL (7-18); CALCIUM LEVEL 9.2 MG/DL (8.5-10.1); CARBON DIOXIDE LEVEL 30 MEQ/L (21-32); CHLORIDE LEVEL 106 MEQ/L (98-107); GLOMERULAR FILTRATION RATE > 60.0 (>56); GLUCOSE, FASTING 153 MG/DL (70-105); MAGNESIUM LEVEL 2.1 MG/DL (1.8-2.4); POTASSIUM SERUM 3.7 MEQ/L (3.5-5.1); SODIUM LEVEL 146 MEQ/L (136-145)
[2016-12-22] MEDS: ADVAIR DISKUS 100/50 INH PWD INH SCH ×2 (07:38→20:59)
[2016-12-22] MEDS: ENOXAPARIN 40 MG/0.4 ML SYRINGE (J1650) SC SCH (10:12)
--- NOTE | 2016-12-22 10:37 | IPNPDOC ---
Subjective Date Seen The patient was seen on 12/22/16. Subjective Chief Complaint/HPI The patient is a 56-year-old male admitted with a reason for visit of Copd Exacerbation. General: Denies: Chills, Night Sweats Constitutional: Denies: Chills, Fever Eyes: Denies: Pain, Vision change ENT: Denies: Ear Pain, Head Aches Skin: Denies: Lesions, Rash Pulmonary: Reports: Cough, Dyspnea Cardiovascular: Denies: Chest Pain, Palpitations Gastrointestinal: Denies: Nausea, Vomiting Genitourinary: Denies: Dysuria, Frequency Hematologic: Denies: Bleeding Excessively, Bruising Objective Physical Examination General Exam: Positive: Alert, Cooperative, No Acute Distress ENT Exam: Positive: Atraumatic, Mucous membr. moist/pink Neck Exam: Negative: JVD Chest Exam: Positive: Diminished, Rhonchi, Negative: Rales, Wheezing Heart Exam: Positive: Normal S1, Normal S2, Rate Normal Abdomen Exam: Positive: Soft, Negative: Tenderness Extremity Exam: Negative: Swelling, Tenderness Assessment /Plan Plan/VTE VTE Prophylaxis Ordered?: Yes Plan Acute Hypoxia secondary to COPD exacerbation Patient states that he is continuing to feel better today and has been more ambulatory Respiratory panel, influenza panel negative Chest x-ray with no acute disease noted Solumedrol transitioned to P Prednisone Continue on Advair, and DuoNeb's. Continue on Levaquin Blood cultures and sputum cultures unrevealing thus far Patient currently weaned off all supplemental oxygen at this time Hypertension, stable Continue home ARB and HCTZ. History of CVA Continue Statin and Plavix DVT prophylaxis: Lovenox Disposition-patient's respiratory status continues to improve, anticipate DC in the a.m. pending continued clinical improvement. VS, I&O, 24H, Fishbone Vital Signs/I&O Vital Signs Date Time Temp Pulse Resp B/P Pulse Ox O2 Delivery O2 Flow Rate FiO2 12/22/16 06:00 96.8 79 18 124/65 90 Room Air 12/22/16 04:58 0.0 I&O- Last 24 Hours up to 6 AM 12/22/16 06:00 Intake Total 840 ml Output Total 1750 ml Balance -910 ml Laboratory Data 24H LABS Laboratory Tests 2 12/22/16 06:38: Anion Gap 10, White Blood Count 18.3H, Red Blood Count 5.54, Hemoglobin 15.3, Hematocrit 45.6, Mean Corpuscular Volume 82.4, Mean Corpuscular Hemoglobin 27.7 , Mean Corpuscular Hemoglobin Concent 33.6, Red Cell Distribution Width 13.3, Platelet Count 177, Neutrophils (%) (Auto) 91.6H, Lymphocytes (%) (Auto) 4.3L, Monocytes (%) (Auto) 3.5, Eosinophils (%) (Auto) 0.2, Basophils (%) (Auto) 0.1, Neutrophils # (Auto) 16.8H, Lymphocytes # (Auto) 0.9L, Monocytes # (Auto) 0.6, Eosinophils # (Auto) 0.0, Basophils # (Auto) 0.0, Blood Urea Nitrogen 25H, Creatinine 1.10, Sodium Level 146#H, Potassium Level 3.7, Chloride Level 106, Carbon Dioxide Level 30, Calcium Level 9.2, Glomerular Filtration Rate > 60.0, Large Unclassified Cells # 0.1, Large Unclassified Cells % 0.4, Magnesium Level 2.1 CBC/BMP Laboratory Tests 12/22/16 06:38 Calcium Level 9.2, Red Blood Count 5.54, Mean Corpuscular Volume 82.4, Mean Corpuscular Hemoglobin 27.7, Mean Corpuscular Hemoglobin Concent 33.6, Red Cell Distribution Width 13.3, Neutrophils (%) (Auto) 91.6 H, Lymphocytes (%) (Auto) 4.3 L, Monocytes (%) (Auto) 3.5, Eosinophils (%) (Auto) 0.2, Basophils (%) (Auto ) 0.1, Neutrophils # (Auto) 16.8 H, Lymphocytes # (Auto) 0.9 L, Monocytes # ( Auto) 0.6, Eosinophils # (Auto) 0.0, Basophils # (Auto) 0.0 Microbiology Microbiology 12/20/16 Blood Culture - Preliminary, Resulted No growth after 24 hours . All specim... 12/20/16 Blood Culture - Preliminary, Resulted No growth after 24 hours . All specim... 12/20/16 Respiratory Virus Panel (PCR) ([facility]) - Final, Complete 12/20/16 Influenza Virus Type A Antigen - Final, Complete 12/20/16 Influenza Virus Type B Antigen - Final, Complete 12/20/16 Gram Stain - Final, Resulted 12/20/16 Sputum Culture, Resulted Pending JASON SHANE MD Dec 22, 2016 10:37
[2016-12-22 14:00] VITALS: BP 135/85
[2016-12-22] MEDS: LevoFLOXacin 750 MG TABLET PO SCH (17:05)
[2016-12-22] MEDS: CLOPIDOGREL 75 MG TAB PO SCH (21:48)
[2016-12-22 21:49] VITALS: BP 138/85
[2016-12-22] MEDS: ATORVASTATIN 20 MG TAB PO SCH (21:49)
[2016-12-22] MEDS: LOSARTAN 50 MG TAB PO SCH (21:49)
[2016-12-22] MEDS: hydroCHLOROthiazide 25 MG TAB PO SCH (21:49)
[2016-12-22 22:00] VITALS: BP 138/84
[2016-12-23 06:00] VITALS: BP 132/69
[2016-12-23 06:27] LABS: BASO % 0.2 % (0.0-1.0); EOS % 0.2 % (0.0-3.0); LARGE UNSTAINED CELL # 0.2 K/mm3 (0.0-0.4); LARGE UNSTAINED CELL % 1.4 % (0.0-4.0); LYMPH # 1.3 K/mm3 (1.5-4.5); LYMPH % 6.4 % (24.0-44.0); MEAN CORPUSCULAR HEMOGLOBIN 27.8 pg (27.0-33.0); MEAN CORPUSCULAR HGB CONC 33.9 g/dl (32.0-36.5); MONO # 0.9 K/mm3 (0.0-0.8); MONO % 5.2 % (0.0-5.0); NEUTROPHILS # 14.1 K/mm3 (1.8-7.7); NEUTROPHILS % 86.6 % (36.0-66.0); PLATELET COUNT, AUTOMATED 200 k/mm3 (150-450); RED CELL DISTRIBUTION WIDTH 13.4 % (11.5-14.5); WHITE BLOOD COUNT 16.3 K/mm3 (4.0-10.0)
[2016-12-23] MEDS: LevoFLOXacin 750 MG TABLET PO SCH (06:35)
[2016-12-23 07:25] LABS: ANION GAP 9 MEQ/L (8-16); BLOOD UREA NITROGEN 26 MG/DL (7-18); CALCIUM LEVEL 8.7 MG/DL (8.5-10.1); CARBON DIOXIDE LEVEL 31 MEQ/L (21-32); CHLORIDE LEVEL 104 MEQ/L (98-107); CREATININE FOR GFR 1.02 MG/DL (0.70-1.30); GLOMERULAR FILTRATION RATE > 60.0 (>56); GLUCOSE, FASTING 113 MG/DL (70-105); MAGNESIUM LEVEL 2.4 MG/DL (1.8-2.4); POTASSIUM SERUM 3.8 MEQ/L (3.5-5.1); SODIUM LEVEL 144 MEQ/L (136-145)
[2016-12-23] MEDS: IPRATROPIUM 0.5MG/ALBUTEROL 2.5MG INH SOL UD 3ML (DUONEB)(J7620) NEB SCH ×2 (07:57→13:12)
[2016-12-23] MEDS: ADVAIR DISKUS 100/50 INH PWD INH SCH (07:57)
[2016-12-23] MEDS: ENOXAPARIN 40 MG/0.4 ML SYRINGE (J1650) SC SCH (08:38)
[2016-12-23] MEDS ORDERED: predniSONE 20 MG TAB PO SCH (09:00)
[2016-12-23] MEDS ORDERED: AUGM875T27 PO (09:58)
[2016-12-23] MEDS ORDERED: PRED10TA PO (09:58)
[2016-12-23 14:00] VITALS: BP 135/72
--- NOTE | 2016-12-23 14:58 | DS.PDOC ---
Discharge Summary General Date of Admission Dec 20, 2016 at 17:08 Date of Discharge Discharge Summary PROCEDURES PERFORMED DURING STAY: None. ADMITTING DIAGNOSES: 1. . COPD exacerbation 2. . Hypertension 3. . DISCHARGE DIAGNOSES: 1. . COPD exacerbation 2. . Hypertension 3. . COMPLICATIONS/CHIEF COMPLAINT: Copd Exacerbation. HISTORY OF PRESENT ILLNESS: . 56-year-old male with past medical history of COPD, hypertension, CVA presented to the ER with a chief complaint of shortness of breath and increased cough with productive sputum. The patient states that he has been having trouble walking and talking at the same time as he reports increased sputum production with associated cough. He does note that he has had multiple sick contacts at work. In the ER, patient was noted to be requiring 3 L of oxygen. The patient was admitted to the hospitalist service for evaluation and management of COPD exacerbation. During the patient's stay in the hospital here. A chest x-ray revealed no active disease, and a respiratory panel was negative. The patient was started on IV steroids and Levaquin as well as nebulizer treatments for treatment of COPD exacerbation likely secondary to upper respiratory tract infection. Over the ensuing 48 hours the patient's respiratory status markedly improved, and he no longer required any supplemental oxygen. Today the patient is noted to be walking the corridor and is without any complaints of dyspnea, cough, or any limitations. At this time, the patient is eager to return home. The patient will be discharged on Augmentin and a tapering dose of steroids. I've advised him to follow-up with his primary care physician within one week for further evaluation and monitoring. DISCHARGE MEDICATIONS: Please see below. ALLERGIES: Please see below. PHYSICAL EXAMINATION ON DISCHARGE: VITAL SIGNS: Please see below. General Exam: Positive: Alert, Cooperative, No Acute Distress ENT Exam: Positive: Atraumatic, Mucous membr. moist/pink Neck Exam: Negative: JVD Chest Exam: Positive: Breath sounds clear to auscultation bilaterally Negative: Rales, Wheezing Heart Exam: Positive: Normal S1, Normal S2, Rate Normal Abdomen Exam: Positive: Soft, Negative: Tenderness Extremity Exam: Negative: Swelling, Tenderness LABORATORY DATA: Please see below. IMAGING: Chest x-ray: Two views: History: Short of breath. Findings: Comparison study 11/23/2016. The lungs are well inflated and free of infiltrate. Pleural angles are sharp. Heart size is normal. The aorta is somewhat tortuous. There are degenerative changes in the right shoulder and in the thoracic spine. Impression: No active disease. PROGNOSIS: Medically stable at this time ACTIVITY: As tolerated. DIET: . 2 g low sodium diet DISCHARGE PLAN: DISPOSITION: . DISCHARGE INSTRUCTIONS: 1. . Follow-up with primary care physician within one week 2. . Remain adherent to medical therapy, and return to the ER if symptoms return or worsen. 3. . DISCHARGE CONDITION: Stable. TIME SPENT ON DISCHARGE: Greater than 30 minutes. Vital Signs/I&Os Vital Signs Date Time Temp Pulse Resp B/P Pulse Ox O2 Delivery O2 Flow Rate FiO2 12/23/16 14:00 96.3 80 18 135/72 97 Room Air 12/22/16 14:00 2.0 I&O- Last 24 Hours up to 6 AM 12/23/16 06:00 Intake Total 1710 ml Output Total 1525 ml Balance 185 ml Laboratory Data Labs 24H Laboratory Tests 2 12/23/16 05:58: White Blood Count 16.3H, Red Blood Count 5.18, Hemoglobin 14.4, Hematocrit 42.5 , Mean Corpuscular Volume 82.0, Mean Corpuscular Hemoglobin 27.8, Mean Corpuscular Hemoglobin Concent 33.9, Red Cell Distribution Width 13.4, Platelet Count 200, Neutrophils (%) (Auto) 86.6H, Lymphocytes (%) (Auto) 6.4L, Monocytes (%) (Auto) 5.2H, Eosinophils (%) (Auto) 0.2, Basophils (%) (Auto) 0.2, Neutrophils # (Auto) 14.1H, Lymphocytes # (Auto) 1.3L, Monocytes # (Auto) 0.9H, Eosinophils # (Auto) 0.0, Basophils # (Auto) 0.0, Large Unclassified Cells # 0.2 , Large Unclassified Cells % 1.4 12/23/16 06:46: Anion Gap 9, Blood Urea Nitrogen 26H, Creatinine 1.02, Sodium Level 144, Potassium Level 3.8, Chloride Level 104, Carbon Dioxide Level 31, Calcium Level 8.7, Glomerular Filtration Rate > 60.0, Magnesium Level 2.4 CBC/BMP Laboratory Tests 12/23/16 05:58 Red Blood Count 5.18, Mean Corpuscular Volume 82.0, Mean Corpuscular Hemoglobin 27.8, Mean Corpuscular Hemoglobin Concent 33.9, Red Cell Distribution Width 13.4 , Neutrophils (%) (Auto) 86.6 H, Lymphocytes (%) (Auto) 6.4 L, Monocytes (%) ( Auto) 5.2 H, Eosinophils (%) (Auto) 0.2, Basophils (%) (Auto) 0.2, Neutrophils # (Auto) 14.1 H, Lymphocytes # (Auto) 1.3 L, Monocytes # (Auto) 0.9 H, Eosinophils # (Auto) 0.0, Basophils # (Auto) 0.0 12/23/16 06:46 Calcium Level 8.7 Microbiology Microbiology 12/20/16 Blood Culture - Preliminary, Resulted No Growth after 48 hours. All Specime... 12/20/16 Blood Culture - Preliminary, Resulted No Growth after 72 hours. All specime... 12/20/16 Respiratory Virus Panel (PCR) ([facility]) - Final, Complete 12/20/16 Influenza Virus Type A Antigen - Final, Complete 12/20/16 Influenza Virus Type B Antigen - Final, Complete 12/20/16 Gram Stain - Final, Complete 12/20/16 Sputum Culture - Final, Complete Haemophilus Influenzae Discharge Medications Scheduled (Arnuity Ellipta) 200 Mcg/Act Inh 200 MCG INH QHS (Reported) Amoxicillin/Clavulanate Potas (Augmentin 875-125 mg) 1 Tab Tab 875 MG PO BID Atorvastatin Calcium (Atorvastatin Calcium) 20 Mg Tab 20 MG PO QHS (Reported) Clopidogrel Bisulfate (Clopidogrel) 75 Mg Tab 75 MG PO QHS (Reported) Hydrochlorothiazide (Hydrochlorothiazide) 25 Mg Tab 25 MG PO QHS (Reported) Losartan Potassium (Losartan Potassium) 50 Mg Tab 50 MG PO QHS (Reported) Prednisone (Prednisone) 10 Mg Tab 10 MG PO ASDIRECTED Scheduled PRN Acetaminophen (Acetaminophen) 500 Mg Tab 500 MG PO PRN PAIN (Reported) Albuterol Sulfate (Ventolin Hfa) 200 Puff/8 Gm Aers 2 PUFF INH QID PRN PRN RESPIRATORY DISTRESS (Reported) Ibuprofen (Advil) 200 Mg Tab 200 MG PO PRN PAIN (Reported) Allergies Coded Allergies: Codeine (Verified Adverse Reaction, Unknown, nausea, 12/20/16) JASON SHANE MD Dec 23, 2016 14:58
== END 2016-12-23 14:53 | disposition home or self-care (01) | DRG 140 ==
LOC: M ED 16:17 → M ED INP 17:08 → M MSPAV 20:45
PROVIDERS: ADMIT Hospitalist; ATTEND Internal Medicine
DX: J44.1 Chronic obstructive pulmonary disease with (acute) exacerbation (principal); I10 Essential (primary) hypertension; F17.200 Nicotine dependence, unspecified, uncomplicated; Z79.899 Other long term (current) drug therapy; Z88.5 Allergy status to narcotic agent; Z86.73 Personal history of transient ischemic attack (TIA), and cerebral infarction without residual deficits

== ENCOUNTER → 2017-01-04 | Outpatient (CLI) | payer OTHER ==
[~2017-01-04] MED LIST: ACET50TAOT PO; ADVI200T PO; ALBU17IN INH; ARNU1INH3 INH; ATOR1TAB21 PO; AUGM875T27 PO; BREO1INH3 INH; CLOP75TA2 PO; HYDR12.55 PO; HYDR25TAB PO; LOSA50TA20 PO; PRED10TA PO
--- NOTE | 2017-01-04 13:39 | REP ---
Left lower extremity Duplex Doppler venous ultrasound: Real time compression and duplex Doppler interrogation of the left lower extremity deep venous system is performed. The left common femoral, superficial femoral and popliteal veins are fully compressible with transducer pressure and demonstrate normal spontaneous and phasic flow, without evidence of deep venous thrombosis. Impression: No evidence of deep venous thrombosis of the left lower extremity femoral popliteal venous system. Signed by Washington Blanco MD 01/04/2017 01:30 P
== END ==
LOC: M RAD 13:01
PROVIDERS: ATTEND Family Medicine
DX: M79.89 Other specified soft tissue disorders (principal)

== ENCOUNTER 2017-04-11 19:10 | Emergency (ER) | payer OTHER ==
[~2017-04-11] VITALS: Ht 177.8 cm; Wt 109.5 kg
[~2017-04-11 19:10] MED LIST changes: -AUGM875T27 PO; +AUGM875T28 PO; -PRED10TA PO; +PRED10TA2 PO
[2017-04-11] MEDS ORDERED: IPRATROPIUM 0.5MG/ALBUTEROL 2.5MG INH SOL UD 3ML (DUONEB)(J7620) NEB ONE (20:00)
[2017-04-11] MEDS ORDERED: ALBUTEROL SULFATE 2.5 MG/0.5 ML INH NEB SOLN NEB ONE (20:00)
[2017-04-11] MEDS ORDERED: predniSONE 20 MG TAB PO ONE (20:00)
[2017-04-11] MEDS ORDERED: ALBU17IN2 INH (21:00)
[2017-04-11] MEDS ORDERED: AZITHROMYCIN 250 MG TAB PO ONE (21:00)
[2017-04-11] MEDS ORDERED: ZITHTAB PO (21:00)
[2017-04-11] MEDS ORDERED: PRED10TA2 PO (21:00)
[2017-04-11 21:05] VITALS: BP 141/87
--- NOTE | 2017-04-11 22:26 | REP ---
Clinical: Cough. Technique: PA and lateral. Comparison: 12/20/2016. Findings: Mediastinum and cardiac silhouette are normal. Lung hare demonstrate chronic-appearing interstitial changes and trace basilar atelectasis cannot be excluded. No effusion. No pneumothorax. Skeletal structures intact. Impression: Cannot exclude trace basilar atelectasis. If the patient remains symptomatic consider chest CT for further investigation. Signed by Satish Hernandez MD 04/11/2017 10:18 P
== END 2017-04-11 21:10 | disposition home or self-care (01) ==
LOC: M ED 19:56
DX: J44.0 Chronic obstructive pulmonary disease with (acute) lower respiratory infection (principal); J44.1 Chronic obstructive pulmonary disease with (acute) exacerbation; E78.00 Pure hypercholesterolemia, unspecified; I10 Essential (primary) hypertension; F17.210 Nicotine dependence, cigarettes, uncomplicated; Z86.73 Personal history of transient ischemic attack (TIA), and cerebral infarction without residual deficits; Z79.899 Other long term (current) drug therapy; Z88.5 Allergy status to narcotic agent; Z79.52 Long term (current) use of systemic steroids

== ENCOUNTER 2017-07-07 17:38 | Emergency (ER) | payer OTHER ==
[~2017-07-07] VITALS: Ht 180.3 cm; Wt 110.5 kg
[~2017-07-07 17:38] MED LIST changes: +ALBU17IN2 INH; +ZITHTAB PO
[2017-07-07] MEDS ORDERED: NICO21DI31 (18:07)
[2017-07-07 22:33] LABS: BASO % 0.3 % (0.0-1.0); EOS # 0.1 K/mm3 (0.0-0.50); EOS % 0.7 % (0.0-3.0); LARGE UNSTAINED CELL # 0.2 K/mm3 (0.0-0.4); LARGE UNSTAINED CELL % 1.4 % (0.0-4.0); LYMPH # 1.2 K/mm3 (1.5-4.5); MEAN CORPUSCULAR HGB CONC 34.6 g/dl (32.0-36.5); MEAN CORPUSCULAR VOLUME 80.8 fl (80.0-96.0); MONO # 0.6 K/mm3 (0.0-0.8); MONO % 5.1 % (0.0-5.0); NEUTROPHILS % 81.4 % (36.0-66.0); PLATELET COUNT, AUTOMATED 192 k/mm3 (150-450); RED CELL DISTRIBUTION WIDTH 13.2 % (11.5-14.5)
--- NOTE | 2017-07-07 22:40 | REPUSA ---
CT of the head Clinical history: Headache. Protocol: Multiple axial CT images obtained with 5 mm slice thickness were obtained through the head without administration of contrast. Findings: The ventricles and sulci are symmetric bilaterally. There are periventricular areas of low attenuation throughout the deep white matter. There is a focal chronic low attenuation lesion in the anterior left basal ganglia. A second low attenuation lesion is seen in the head of the left caudate nucleus. There is also a small low attenuation lesion in the right centrum semiovale. There is no meredith dence of acute hemorrhage or infarct. There is no midline shift, mass effect, or extra-axial fluid co llection. The osseous structures are unremarkable. The visualized paranasal sinuses and mastoid air c ells are clear. Impression: 1. No acute hemorrhage or infarct. 2. Findings are consistent with moderate chronic small vessel ischemic disease. 3. Bilateral chronic lacunar infarcts. 4. Ifhere is continued clinical concern, MRI would be recommended for further evaluation. O
[2017-07-07 22:42] VITALS: BP 170/110
[2017-07-07 22:57] LABS: ALBUMIN 3.9 GM/DL (3.2-5.2); ALBUMIN/GLOBULIN RATIO 1.08 (1.00-1.93); ALKALINE PHOSPHATASE 99 U/L (45-117); ALT/SGPT 19 U/L (12-78); ANION GAP 4 MEQ/L (8-16); AST/SGOT 14 U/L (15-37); BLOOD UREA NITROGEN 14 MG/DL (7-18); CALCIUM LEVEL 9.6 MG/DL (8.5-10.1); CARBON DIOXIDE LEVEL 33 MEQ/L (21-32); CHLORIDE LEVEL 102 MEQ/L (98-107); CREATININE FOR GFR 0.94 MG/DL (0.70-1.30); GLOMERULAR FILTRATION RATE > 60.0 (>56); GLUCOSE, FASTING 98 MG/DL (70-105); POTASSIUM SERUM 3.7 MEQ/L (3.5-5.1); SODIUM LEVEL 139 MEQ/L (136-145); TOTAL PROTEIN 7.5 GM/DL (6.4-8.2)
[2017-07-07 23:00] VITALS: BP 170/103
[2017-07-07] MEDS ORDERED: LOSARTAN 50 MG TAB PO ONE (23:00)
--- NOTE | 2017-07-09 05:53 | ECGEPIP ---
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
== END 2017-07-08 00:02 | disposition home or self-care (01) ==
LOC: M ED 17:38
DX: R51 Headache (principal); I10 Essential (primary) hypertension; J44.9 Chronic obstructive pulmonary disease, unspecified; Z86.73 Personal history of transient ischemic attack (TIA), and cerebral infarction without residual deficits; F17.200 Nicotine dependence, unspecified, uncomplicated; Z79.899 Other long term (current) drug therapy; Z88.5 Allergy status to narcotic agent

== ENCOUNTER 2017-07-24 09:49 | Emergency (ER) | payer OTHER ==
[~2017-07-24] VITALS: Ht 179.1 cm; Wt 110.0 kg
[~2017-07-24 09:49] MED LIST changes: +NICO21DI31
[2017-07-24 09:50] VITALS: BP 157/94
[2017-07-24] MEDS ORDERED: CEFD1CAP8 (09:58)
[2017-07-24] MEDS ORDERED: PRED10TA2 PO (09:58)
[2017-07-24] MEDS ORDERED: AUGM875T28 PO (10:13)
[2017-07-24] MEDS ORDERED: MUCI600T37 PO (10:13)
[2017-07-25] MEDS ORDERED: AUGM875T28 PO (23:14)
[2017-07-25] MEDS ORDERED: HYDR50TAB PO (23:16)
[2017-07-25] MEDS ORDERED: LOSA100T36 PO (23:16)
[2017-07-25] MEDS ORDERED: NICODIS TD (23:18)
[2017-07-25] MEDS ORDERED: STRI1AER2 INH (23:19)
== END 2017-07-24 10:20 | disposition home or self-care (01) ==
LOC: M ED 09:49
DX: J01.90 Acute sinusitis, unspecified (principal); I10 Essential (primary) hypertension; J44.9 Chronic obstructive pulmonary disease, unspecified; Z86.73 Personal history of transient ischemic attack (TIA), and cerebral infarction without residual deficits; F17.200 Nicotine dependence, unspecified, uncomplicated; Z79.899 Other long term (current) drug therapy; Z88.5 Allergy status to narcotic agent

== ENCOUNTER 2017-07-25 22:19 | Inpatient (IN) | payer OTHER ==
[~2017-07-25] VITALS: Ht 177.8 cm; Wt 109.0 kg
[2017-07-25] MEDS: SENOKOT S TAB PO SCH (03:02)
[~2017-07-25 22:19] MED LIST changes: +CEFD1CAP8; +MUCI600T37 PO
[2017-07-25] MEDS ORDERED: IPRATROPIUM 0.5MG/ALBUTEROL 2.5MG INH SOL UD 3ML (DUONEB)(J7620) As Ordered ONE (22:25)
[2017-07-25] MEDS: methylPREDNISolone INJ 125 MG/2 ML VIAL (J2930) IV ONE ×2 (22:30→22:37)
[2017-07-25] MEDS: IPRATROPIUM 0.5MG/ALBUTEROL 2.5MG INH SOL UD 3ML (DUONEB)(J7620) NEB PRN ×2 (22:37→23:33)
[2017-07-25 22:38] LABS: ABG BASE EXCESS 2.7 (-2.0-2.0); ABG HCO3 27.6 MEQ/L (22.0-26.0); ABG PARTIAL PRESSURE CO2 43.5 mmHg (35.0-45.0); ABG PARTIAL PRESSURE O2 135.2 mmHg (75.0-100.0); ABG STANDARD HCO3 26.9 MEQ/L (22.0-26.0); ABG pH (ARTERIAL) 7.421 UNITS (7.350-7.450)
[2017-07-25] MEDS ORDERED: MAG SULF 1GM/100ML (MAG RUN) 1 GM in APPROPRIATE DILUENT 1 EA IV ONE (22:45)
[2017-07-25 23:03] LABS: MEAN CORPUSCULAR HEMOGLOBIN 26.9 pg (27.0-33.0); MEAN CORPUSCULAR HGB CONC 32.9 g/dl (32.0-36.5); MEAN CORPUSCULAR VOLUME 81.7 fl (80.0-96.0); PLATELET COUNT, AUTOMATED 246 10^3/uL (150-450); RED CELL DISTRIBUTION WIDTH 14.5 % (11.5-14.5); WHITE BLOOD COUNT 14.8 10^3/uL (4.0-10.0)
[2017-07-25] MEDS ORDERED: AUGM875T28 PO (23:14)
[2017-07-25 23:16] LABS: ALBUMIN 3.7 GM/DL (3.2-5.2); ALBUMIN/GLOBULIN RATIO 1.09 (1.00-1.93); ALKALINE PHOSPHATASE 80 U/L (45-117); ALT/SGPT 22 U/L (12-78); ANION GAP 6 MEQ/L (8-16); AST/SGOT 14 U/L (15-37); BILIRUBIN,DIRECT 0.2 MG/DL (0.0-0.2); BILIRUBIN,TOTAL 0.7 MG/DL (0.2-1.0); BLOOD UREA NITROGEN 17 MG/DL (7-18); CALCIUM LEVEL 9.1 MG/DL (8.5-10.1); CARBON DIOXIDE LEVEL 32 MEQ/L (21-32); CHLORIDE LEVEL 102 MEQ/L (98-107); CREATININE FOR GFR 1.14 MG/DL (0.70-1.30); GLOMERULAR FILTRATION RATE > 60.0 (>56); GLUCOSE, FASTING 122 MG/DL (70-105); POTASSIUM SERUM 3.5 MEQ/L (3.5-5.1); SODIUM LEVEL 140 MEQ/L (136-145); TOTAL PROTEIN 7.1 GM/DL (6.4-8.2)
[2017-07-25] MEDS ORDERED: LOSA100T36 PO (23:16)
[2017-07-25] MEDS ORDERED: HYDR50TAB PO (23:16)
[2017-07-25 23:17] LABS: ADD MANUAL DIFFER YES; DIFF SLIDE NUMBER 354
[2017-07-25] MEDS ORDERED: NICODIS TD (23:18)
[2017-07-25] MEDS ORDERED: STRI1AER2 INH (23:19)
[2017-07-25] MEDS ORDERED: NS 1,000 ML IV ONE (23:30)
[2017-07-25 23:36] LABS: HYPOCHROMASIA 1+
[2017-07-26] MEDS ORDERED: ISOVUE-370 76% 100ML VIAL (Q9967) As Ordered ONE (00:02)
[2017-07-26] MEDS ORDERED: POTASSIUM CHLORIDE 10 MEQ SR TABLET PO ONE (00:15)
[2017-07-26] MEDS ORDERED: ACETAMINOPHEN TAB 650MG DOSE (2X325MG) PO PRN (00:30)
--- NOTE | 2017-07-26 00:45 | REP ---
Clinical: Dyspnea and cough. Comparison: 04/11/2017. Findings: Mediastinum and cardiac silhouette are within normal limits and stable. Lung hare without obvious focal consolidation, definite effusion or pneumothorax. Skeletal structures demonstrate degenerative changes to the bilateral shoulders (right greater than left). Impression: Limited portable examination. No focal consolidation, obvious effusion or pneumothorax. Signed by Satish Hernandez MD 07/26/2017 12:37 A
[2017-07-26 01:02] LABS: T UPTAKE 32 % (33-40); THYROXINE (T4) 11.1 UG/DL (4.5-12.0)
--- NOTE | 2017-07-26 01:40 | REPUSA ---
CLINICAL HISTORY: Dyspnea, exclude PE. TECHNIQUE: Multiple incremental axial, coronal and oblique images are obtained from the thoracic inle t to the upper abdomen. Intravenous contrast material was administered as per pulmonary embolism prot ocol. COMMENTS: Breathing motion artifact. Minimal ground glass densities in the left lower lobe. There is excellent opacification of pulmonary arterial system without evidence for pulmonary embolism . Aorta is of normal caliber without evidence for dissection or aneurysm. There is no evidence of pleural or parenchymal mass. There are no pleural effusions. There is no evid ence of hilar or mediastinal lymphadenopathy. The heart and great vessels are within normal limits. Images of the upper abdomen demonstrate no evidence of adrenal mass. The bony structures are free of lytic or blastic lesions. IMPRESSION: No evidence for pulmonary embolism. Minimal ground glass densities in the left lower lobe. Thank you for your kind referral of this patient.
[2017-07-26] MEDS: NORCO, ANEXSIA 5/325MG TABLET (HYDROcodone/ACETAMINOPHEN) PO PRN (02:06)
[2017-07-26] MEDS: cefTRIAXone SOD 2 GM in D5W 50 ML IV SCH (03:23)
[2017-07-26 03:38] VITALS: BP 139/86
[2017-07-26] MEDS: AZITHROMYCIN INJ 500 MG, VIAL MATE ADAPTER 1 EACH in D5W 250 ML IV SCH (04:33)
--- NOTE | 2017-07-26 05:26 | HPE ---
DATE OF ADMISSION: 07/26/2017 PRIMARY CARE PROVIDER: Apolonia Fields. CHIEF COMPLAINT: Shortness of breath. HISTORY OF PRESENT ILLNESS: This is a 56-year-old male patient with underlying medical history of chronic obstructive pulmonary disease (COPD) not on oxygen at home, hypertension, history of cerebrovascular accident (CVA) with minimal left lower extremity weakness that was seven years ago, active smoker, who presented with one week of progressively worsening shortness of breath with wheezing, productive of grayish sputum with chills. No fever documented. The patient reported being treated with prednisone as well as Augmentin with minima relief. Called emergency medical services (EMS) to bring the patient in. On EMS arrival as per EMS documentation, the patient had an oxygen saturation of 67% on room air, placed on room air rebreather and brought to the hospital. Given multiple nebulizer treatments with improvement of oxygen saturation. The patient denies any chest pain, pressure, discomfort. Reported significant cough with dyspnea. No sick contacts. ALLERGIES: CODEINE. PAST MEDICAL HISTORY: 1. COPD. 2. Hypertension. 3. CVA with left lower extremity minimal weakness, baseline ambulatory. PAST SURGICAL HISTORY: None. FAMILY HISTORY: Father with lung cancer. SOCIAL HISTORY: The patient denies drinking. Is currently down to a quarter-pack of cigarettes per day. Is on nicotine patch. REVIEW OF SYSTEMS: Reports shortness of breath, coughing productive of grayish sputum. Abdominal pain secondary to cough. All other review of systems are negative. HOME MEDICATIONS: - Ventolin inhaler four times a day as needed - Augmentin 875/125 mg by mouth twice a day - Ellipta inhalation at bedtime - Plavix 75 mg by mouth daily - hydrochlorothiazide 50 mg by mouth daily - losartan 100 mg by mouth daily - nicotine patch 21 mg transdermal daily - prednisone 40 mg by mouth daily - Striverdi Respimat 2.5 mcg inhalation daily PHYSICAL EXAMINATION: VITAL SIGNS: Temperature 99.2, pulse 124, respirations 30, blood pressure 136/88, pulse oximetry 96% on 30% Ventimask. GENERAL: Patient alert and oriented times three in no acute distress, speaking in full sentences. HEENT: Normocephalic, atraumatic. PULMONARY: Bilaterally diminished breath sounds with expiratory wheeze, prolonged expiratory phase. CARDIAC: Tachycardia, regular. ABDOMEN: Soft, nontender. Positive bowel sounds. EXTREMITIES: No clubbing, cyanosis or edema. NEUROLOGIC: No focal deficit. LABORATORY DATA: WBC 14.8, hemoglobin and hematocrit 17.2 over 52.3, platelets 246. Chemistry: Sodium 140, potassium 3.5, chloride 102, bicarbonate 32, BUN 17, creatinine 1.14. Cardiac enzymes negative times one. C-reactive protein 11. EKG shows sinus tachycardia with right bundle branch block. Chest x-ray shows bi-hilar infiltrate. ASSESSMENT AND PLAN: This is a 56-year-old male patient with underlying medical history of chronic obstructive pulmonary disease (COPD), hypertension, cerebrovascular accident, admitted with acute COPD exacerbation. 1. Acute COPD exacerbation, likely secondary to community-acquired bacterial pneumonia. Followup respiratory panel, sputum culture, blood cultures. Azithromycin and Rocephin. Nebulizer treatments. Inhalers. Solu-Medrol. Taper as tolerated. 2. Hypertension. Continue current medication. 3. Tachycardia likely secondary to nebulizer treatments and respiratory distress. Followup of cardiac enzymes. Continue monitoring. Repeat electrocardiogram (EKG). 4. History of cerebrovascular accident (CVA). Continue blood pressure medication. Continue Plavix. 5. Hypoxic respiratory failure secondary to COPD exacerbation. Will get CT angiogram to rule out pulmonary embolism (PE), but likely secondary to underlying COPD. 6. Smoking. Counseling provided, time spent four minutes. Nicotine patch. 7. Deep venous thrombosis (DVT) prophylaxis. Lovenox subcutaneous. 8. Hypertension. Continue Cozaar and hydrochlorothiazide . Monitor blood pressure. DISPOSITION: Pending CT angiogram, clinical improvement. Taper steroids as tolerated. Smoking cessation counseling provided. Time spent for minutes for smoking cessation. Nicotine patch has been offered. Followup respiratory panel.
[2017-07-26] MEDS: IPRATROPIUM 0.5MG/ALBUTEROL 2.5MG INH SOL UD 3ML (DUONEB)(J7620) NEB SCH ×4 (06:43→20:17)
[2017-07-26] MEDS: methylPREDNISolone INJ 125 MG/2 ML VIAL (J2930) IV SCH ×2 (07:25→16:28)
[2017-07-26 07:32] LABS: MEAN CORPUSCULAR HGB CONC 32.8 g/dl (32.0-36.5); MEAN CORPUSCULAR VOLUME 82.2 fl (80.0-96.0); RED CELL DISTRIBUTION WIDTH 14.3 % (11.5-14.5); WHITE BLOOD COUNT 10.4 10^3/uL (4.0-10.0)
[2017-07-26 08:00] VITALS: BP 120/63
[2017-07-26 08:04] LABS: ANION GAP 5 MEQ/L (8-16); BLOOD UREA NITROGEN 20 MG/DL (7-18); CALCIUM LEVEL 9.4 MG/DL (8.5-10.1); CARBON DIOXIDE LEVEL 33 MEQ/L (21-32); CHLORIDE LEVEL 103 MEQ/L (98-107); GLOMERULAR FILTRATION RATE > 60.0 (>56); GLUCOSE, FASTING 178 MG/DL (70-105); MAGNESIUM LEVEL 2.7 MG/DL (1.8-2.4); POTASSIUM SERUM 4.4 MEQ/L (3.5-5.1); SODIUM LEVEL 141 MEQ/L (136-145)
--- NOTE | 2017-07-26 08:55 | ECGEPIP ---
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
[2017-07-26] MEDS ORDERED: STRIVERDI RESPIMAT INH SCH (09:00)
[2017-07-26] MEDS: SENOKOT S TAB PO SCH ×2 (09:00→21:00)
[2017-07-26] MEDS: NICOTINE 21MG/24HR 1 EA TRANSDERMAL TD SCH (09:00)
[2017-07-26] MEDS: CLOPIDOGREL 75 MG TAB PO SCH (09:11)
[2017-07-26] MEDS: hydroCHLOROthiazide 25 MG TAB PO SCH (09:11)
[2017-07-26] MEDS: LOSARTAN 50 MG TAB PO SCH (09:12)
[2017-07-26] MEDS: ENOXAPARIN 40 MG/0.4 ML SYRINGE (J1650) SC SCH (09:13)
[2017-07-26] MEDS: TIOTROPIUM INHALER/CAPSULE (SPIRIVA) INH SCH (11:33)
[2017-07-26 15:30] VITALS: BP 158/91
[2017-07-26 22:00] VITALS: BP 140/94
[2017-07-27] MEDS: methylPREDNISolone INJ 125 MG/2 ML VIAL (J2930) IV SCH ×3 (00:49→16:15)
[2017-07-27] MEDS: IPRATROPIUM 0.5MG/ALBUTEROL 2.5MG INH SOL UD 3ML (DUONEB)(J7620) NEB SCH ×4 (02:00→21:21)
[2017-07-27] MEDS: cefTRIAXone SOD 2 GM in D5W 50 ML IV SCH (02:56)
[2017-07-27] MEDS: AZITHROMYCIN INJ 500 MG, VIAL MATE ADAPTER 1 EACH in D5W 250 ML IV SCH (04:12)
[2017-07-27 06:00] VITALS: BP 136/81
[2017-07-27 07:02] LABS: MEAN CORPUSCULAR HEMOGLOBIN 26.6 pg (27.0-33.0); MEAN CORPUSCULAR HGB CONC 32.8 g/dl (32.0-36.5); MEAN CORPUSCULAR VOLUME 80.9 fl (80.0-96.0); RED CELL DISTRIBUTION WIDTH 14.4 % (11.5-14.5)
[2017-07-27] MEDS: TIOTROPIUM INHALER/CAPSULE (SPIRIVA) INH SCH (07:25)
[2017-07-27 07:26] LABS: ANION GAP 5 MEQ/L (8-16); BLOOD UREA NITROGEN 23 MG/DL (7-18); CALCIUM LEVEL 8.9 MG/DL (8.5-10.1); CARBON DIOXIDE LEVEL 32 MEQ/L (21-32); CHLORIDE LEVEL 104 MEQ/L (98-107); CREATININE FOR GFR 1.02 MG/DL (0.70-1.30); GLOMERULAR FILTRATION RATE > 60.0 (>56); GLUCOSE, FASTING 155 MG/DL (70-105); MAGNESIUM LEVEL 2.1 MG/DL (1.8-2.4); POTASSIUM SERUM 3.6 MEQ/L (3.5-5.1); SODIUM LEVEL 141 MEQ/L (136-145)
[2017-07-27] MEDS: NICOTINE 21MG/24HR 1 EA TRANSDERMAL TD SCH (09:00)
[2017-07-27] MEDS: CLOPIDOGREL 75 MG TAB PO SCH (09:03)
[2017-07-27] MEDS: hydroCHLOROthiazide 25 MG TAB PO SCH (09:03)
[2017-07-27] MEDS: ENOXAPARIN 40 MG/0.4 ML SYRINGE (J1650) SC SCH (09:03)
[2017-07-27] MEDS: SENOKOT S TAB PO SCH ×2 (09:03→20:52)
[2017-07-27] MEDS: LOSARTAN 50 MG TAB PO SCH (09:07)
--- NOTE | 2017-07-27 13:19 | IPNPDOC ---
Date Seen The patient was seen on 07/27/17. Progress Note SUBJECTIVE: Patient is a 56-year-old gentleman admitted last evening for acute hypoxic respiratory failure. He does appear to be showing some mild improvement. He feels less tightness chest. He denies any chest pain. Denies productive sputum is with a cough. Hemoptysis. No nausea, vomiting, is tolerating by mouth intake. Voiding fine. Bowel movements regular. OBJECTIVE PHYSICAL EXAMINATION: VITAL SIGNS: Please see below. GENERAL: No acute distress, alert and oriented 3 HEENT: PERRLA. Throat clear. Neck supple, no JVD CARDIOVASCULAR: Regular rate and rhythm. RESPIRATORY: Expiratory wheeze, clears with cough. Otherwise clear. ABDOMINAL: Soft, anteroseptal positive bowel sounds, masses or rebound EXTREMITIES: No edema, no calf tenderness NEUROLOGICAL: Cranial nerves II through XII grossly intact. No gross deficits PSYCHOLOGICAL: Negative LABORATORY DATA: Please see below. MICROBIOLOGY: Respiratory viral panel was positive for parainfluenza 3. CT angio Chest: No evidence for pulmonary embolism. Minimal ground glass densities in the left lower lobe. DVT prophylaxis ordered?: Yes ASSESSMENT AND PLAN: This is a 86-year-old male with hypoxic respiratory failure and positive parainfluenza on respiratory panel.. PROBLEMS: 1. Acute hypoxic respiratory failure: Parainfluenza positive on respiratory panel, continue with supportive therapy, nebs. 2. COPD: Continue with Solu-Medrol, nebulizers and covered with Rocephin and Zithromax. 3. Hypertension: Stable. Continue Cozaar and HCTZ 4. Prior history of CVA Continue to watch blood pressure and continue Plavix 5. Tobacco use: Calcium provided in the emergency department . Continue NicoDerm patch DISPOSITION: Anticipate discharge in 2-3 days. VS, I&O, 24H, [place] Vital Signs/I&O Vital Signs Date Time Temp Pulse Resp B/P (MAP) Pulse Ox O2 Delivery O2 Flow Rate FiO2 07/27/17 09:07 137/80 07/27/17 06:00 98.1 93 16 92 Room Air 07/26/17 22:00 3.0 07/25/17 23:38 31 I&O- Last 24 Hours up to 6 AM 07/28/17 06:00 Intake Total 300 ml Balance 300 ml Laboratory Data 24H LABS Laboratory Tests 2 07/27/17 06:31: Nucleated Red Blood Cells % (auto) 0.0, Anion Gap 5L, Glomerular Filtration Rate > 60.0, Blood Urea Nitrogen 23H, Creatinine 1.02, Sodium Level 141, Potassium Level 3.6, Chloride Level 104, Carbon Dioxide Level 32, Calcium Level 8.9, Magnesium Level 2.1, C-Reactive Protein, Quantitative 7.87H CBC/BMP Laboratory Tests 07/27/17 06:31 Red Blood Count 5.76, Mean Corpuscular Volume 80.9, Mean Corpuscular Hemoglobin 26.6 L, Mean Corpuscular Hemoglobin Concent 32.8, Red Cell Distribution Width 14.4, Calcium Level 8.9 Microbiology Microbiology 07/25/17 Blood Culture - Preliminary, Resulted No growth after 24 hours . All specim... 07/25/17 Blood Culture - Preliminary, Resulted 07/25/17 Respiratory Virus Panel (PCR) (DORA) - Final, Complete Parainfluenza 3 (Piv3) ANTONINA STEINER DO Jul 27, 2017 13:19
[2017-07-27 14:00] VITALS: BP 138/82
[2017-07-27 22:00] VITALS: BP 130/81
[2017-07-28] MEDS: methylPREDNISolone INJ 125 MG/2 ML VIAL (J2930) IV SCH (00:58)
[2017-07-28] MEDS: IPRATROPIUM 0.5MG/ALBUTEROL 2.5MG INH SOL UD 3ML (DUONEB)(J7620) NEB SCH ×4 (02:00→19:35)
[2017-07-28] MEDS: cefTRIAXone SOD 2 GM in D5W 50 ML IV SCH (03:21)
[2017-07-28] MEDS: AZITHROMYCIN INJ 500 MG, VIAL MATE ADAPTER 1 EACH in D5W 250 ML IV SCH (04:39)
[2017-07-28 06:00] VITALS: BP 133/76
[2017-07-28 07:06] LABS: MEAN CORPUSCULAR HEMOGLOBIN 26.4 pg (27.0-33.0); MEAN CORPUSCULAR HGB CONC 32.4 g/dl (32.0-36.5); MEAN CORPUSCULAR VOLUME 81.5 fl (80.0-96.0); RED CELL DISTRIBUTION WIDTH 14.3 % (11.5-14.5); WHITE BLOOD COUNT 14.2 10^3/uL (4.0-10.0)
[2017-07-28] MEDS: TIOTROPIUM INHALER/CAPSULE (SPIRIVA) INH SCH (07:20)
[2017-07-28 07:21] LABS: ANION GAP 5 MEQ/L (8-16); BLOOD UREA NITROGEN 29 MG/DL (7-18); CALCIUM LEVEL 8.7 MG/DL (8.5-10.1); CARBON DIOXIDE LEVEL 32 MEQ/L (21-32); CHLORIDE LEVEL 104 MEQ/L (98-107); CREATININE FOR GFR 0.98 MG/DL (0.70-1.30); GLOMERULAR FILTRATION RATE > 60.0 (>56); GLUCOSE, FASTING 149 MG/DL (70-105); MAGNESIUM LEVEL 2.2 MG/DL (1.8-2.4); POTASSIUM SERUM 3.7 MEQ/L (3.5-5.1); SODIUM LEVEL 141 MEQ/L (136-145)
[2017-07-28] MEDS: NICOTINE 21MG/24HR 1 EA TRANSDERMAL TD SCH (09:00)
[2017-07-28] MEDS: CLOPIDOGREL 75 MG TAB PO SCH (09:32)
[2017-07-28] MEDS: predniSONE 20 MG TAB PO SCH (09:33)
[2017-07-28] MEDS: hydroCHLOROthiazide 25 MG TAB PO SCH (09:33)
[2017-07-28] MEDS: ENOXAPARIN 40 MG/0.4 ML SYRINGE (J1650) SC SCH (09:34)
[2017-07-28] MEDS: LOSARTAN 50 MG TAB PO SCH (09:34)
[2017-07-28] MEDS: guaiFENesin ER 600 MG TAB PO SCH ×2 (09:34→20:47)
[2017-07-28] MEDS: SENOKOT S TAB PO SCH ×2 (09:37→20:48)
[2017-07-28] MEDS: NORCO, ANEXSIA 5/325MG TABLET (HYDROcodone/ACETAMINOPHEN) PO PRN (09:38)
--- NOTE | 2017-07-28 10:50 | IPNPDOC ---
Date Seen The patient was seen on 07/28/17. Progress Note SUBJECTIVE: Patient is a 56 yo male seen at bedside, no overnight issues. Nonproductive cough requesting mucinex. Denies: CP, Hemopysis, n/v/d. Tolerating PO intake, voiding fine, had a BM this morning. OBJECTIVE PHYSICAL EXAMINATION: VITAL SIGNS: Please see below. GENERAL: NAD HEENT: PERRLA, throat clear, neck supple, no JVD CARDIOVASCULAR: RRR. RESPIRATORY: Diminished bibasilar breath sounds, expiratory wheeze. ABDOMINAL: soft, NT/ND, Normoactive BS, no rebound EXTREMITIES: no edema, no calf tenderness NEUROLOGICAL: CN II-XII Grossly intact, no gross deficits PSYCHOLOGICAL: negative LABORATORY DATA: Please see below. MICROBIOLOGY: Please see below. DVT prophylaxis ordered?: yes ASSESSMENT AND PLAN: This is a 56 yo male admitted with acute hypoxic resp failure and positive parainfluenza. Looking somewhat better today with symptoms. PROBLEMS: 1. Acute hypoxic respiratory failure: Parainfluenza positive on respiratory panel, continue with supportive therapy, nebs. 2. COPD: Continue nebulizers and covered with Rocephin and Zithromax and change solu-medrol to Prednisone. 3. Hypertension: Stable. Continue Cozaar and HCTZ 4. Prior history of CVA Continue to watch blood pressure and continue Plavix 5. Tobacco use: Calcium provided in the emergency department . Continue NicoDerm patch DISPOSITION: Anticipate discharge tomorrow. VS, I&O, 24H, Fishbone Vital Signs/I&O Vital Signs Date Time Temp Pulse Resp B/P (MAP) Pulse Ox O2 Delivery O2 Flow Rate FiO2 07/28/17 09:38 18 07/28/17 09:34 141/75 07/28/17 06:00 97.6 79 96 Room Air 07/26/17 22:00 3.0 07/25/17 23:38 31 I&O- Last 24 Hours up to 6 AM 07/29/17 06:00 Intake Total 480 ml Output Total 350 ml Balance 130 ml Laboratory Data 24H LABS Laboratory Tests 2 07/28/17 06:43: Nucleated Red Blood Cells % (auto) 0.0, Anion Gap 5L, Glomerular Filtration Rate > 60.0, Blood Urea Nitrogen 29H, Creatinine 0.98, Sodium Level 141, Potassium Level 3.7, Chloride Level 104, Carbon Dioxide Level 32, Calcium Level 8.7, Magnesium Level 2.2, C-Reactive Protein, Quantitative 3.20H CBC/BMP Laboratory Tests 07/28/17 06:43 Red Blood Count 5.30, Mean Corpuscular Volume 81.5, Mean Corpuscular Hemoglobin 26.4 L, Mean Corpuscular Hemoglobin Concent 32.4, Red Cell Distribution Width 14.3, Calcium Level 8.7 Microbiology Microbiology 07/25/17 Blood Culture - Preliminary, Resulted No Growth after 48 hours. All Specime... 07/25/17 Blood Culture - Preliminary, Resulted 07/25/17 Respiratory Virus Panel (PCR) ([facility]) - Final, Complete Parainfluenza 3 (Piv3) ANTONINA STEINER DO Jul 28, 2017 10:50
[2017-07-28] MEDS: CEFDINIR 300 MG CAP (OMNICEF) PO SCH (20:47)
[2017-07-28 22:00] VITALS: BP 137/84
[2017-07-29] MEDS: IPRATROPIUM 0.5MG/ALBUTEROL 2.5MG INH SOL UD 3ML (DUONEB)(J7620) NEB SCH ×4 (01:41→19:43)
[2017-07-29 06:00] VITALS: BP 141/83
[2017-07-29 06:40] LABS: MEAN CORPUSCULAR HEMOGLOBIN 26.5 pg (27.0-33.0); MEAN CORPUSCULAR HGB CONC 32.7 g/dl (32.0-36.5); RED CELL DISTRIBUTION WIDTH 14.2 % (11.5-14.5); WHITE BLOOD COUNT 12.7 10^3/uL (4.0-10.0)
[2017-07-29 06:52] LABS: ANION GAP 6 MEQ/L (8-16); BLOOD UREA NITROGEN 27 MG/DL (7-18); CALCIUM LEVEL 8.7 MG/DL (8.5-10.1); CARBON DIOXIDE LEVEL 32 MEQ/L (21-32); CHLORIDE LEVEL 105 MEQ/L (98-107); CREATININE FOR GFR 0.97 MG/DL (0.70-1.30); GLOMERULAR FILTRATION RATE > 60.0 (>56); GLUCOSE, FASTING 96 MG/DL (70-105); MAGNESIUM LEVEL 2.3 MG/DL (1.8-2.4); POTASSIUM SERUM 3.3 MEQ/L (3.5-5.1); SODIUM LEVEL 143 MEQ/L (136-145)
[2017-07-29] MEDS: TIOTROPIUM INHALER/CAPSULE (SPIRIVA) INH SCH (07:42)
[2017-07-29] MEDS: NICOTINE 21MG/24HR 1 EA TRANSDERMAL TD SCH (09:00)
[2017-07-29] MEDS: SENOKOT S TAB PO SCH ×3 (09:00→21:00)
[2017-07-29] MEDS ORDERED: AZITHROMYCIN 250 MG TAB PO SCH (09:00)
[2017-07-29] MEDS: hydroCHLOROthiazide 25 MG TAB PO SCH (09:32)
[2017-07-29] MEDS: LOSARTAN 50 MG TAB PO SCH (09:32)
[2017-07-29] MEDS: CEFDINIR 300 MG CAP (OMNICEF) PO SCH ×2 (09:33→21:10)
[2017-07-29] MEDS: CLOPIDOGREL 75 MG TAB PO SCH (09:33)
[2017-07-29] MEDS: guaiFENesin ER 600 MG TAB PO SCH ×2 (09:33→21:11)
[2017-07-29] MEDS: ENOXAPARIN 40 MG/0.4 ML SYRINGE (J1650) SC SCH (09:33)
[2017-07-29] MEDS: predniSONE 20 MG TAB PO SCH (09:33)
[2017-07-29] MEDS: IPRATROPIUM 0.5MG/ALBUTEROL 2.5MG INH SOL UD 3ML (DUONEB)(J7620) NEB PRN ×2 (11:15→15:34)
[2017-07-29 14:00] VITALS: BP 148/95
[2017-07-29] MEDS ORDERED: POTASSIUM CHLORIDE 10 MEQ SR TABLET PO ONE (14:00)
--- NOTE | 2017-07-29 14:08 | IPNPDOC ---
Date Seen The patient was seen on 07/29/17. Progress Note SUBJECTIVE: Patient is a 56 yo male seen at bedside still having some SOB, ELLER, mildly productive cough. Denies CP, N/V/D. Tolerating PO intake. BM regular. OBJECTIVE PHYSICAL EXAMINATION: VITAL SIGNS: Please see below. GENERAL: NAD A&OX3 HEENT: PERRLA, throat clear, neck supple. No JVD CARDIOVASCULAR: RRR. RESPIRATORY: expiratory wheeze all lung hare, requiring O2 supplementation. ABDOMINAL: soft, NT/ND, normoactive bowel sounds EXTREMITIES: no edema, no calf tenderness NEUROLOGICAL: CN II-XII grossly intact, no deficits PSYCHOLOGICAL: negative LABORATORY DATA: Please see below. MICROBIOLOGY: Micrococcus on blood culture...likely contaminate. Second blood culture bottle negative for 72hrs. DVT prophylaxis ordered?: yes ASSESSMENT AND PLAN: This is a 56 yo with hypoxic respiratory failure at time of admission. Showing some slow improvement. PROBLEMS: 1. Acute hypoxic respiratory failure: Parainfluenza positive on respiratory panel, continue with supportive therapy, nebs. 2. COPD: Continue nebulizers and covered with Rocephin and Zithromax and oral Prednisone. 3. Hypokalemia: replete 4. Hypertension: Stable. Continue Cozaar and HCTZ 5. Prior history of CVA Continue to watch blood pressure and continue Plavix 6. Tobacco use: Calcium provided in the emergency department . Continue NicoDerm patch DISPOSITION: Anticipate discharge next 24hrs. VS, I&O, 24H, Fishbone Vital Signs/I&O Vital Signs Date Time Temp Pulse Resp B/P (MAP) Pulse Ox O2 Delivery O2 Flow Rate FiO2 07/29/17 10:35 95 Nasal Cannula 2.0 07/29/17 09:32 141/83 07/29/17 06:00 97.7 74 18 07/25/17 23:38 31 I&O- Last 24 Hours up to 6 AM 07/30/17 05:59 Intake Total 560 ml Output Total 1000 ml Balance -440 ml Laboratory Data 24H LABS Laboratory Tests 2 07/29/17 06:26: Nucleated Red Blood Cells % (auto) 0.0, Anion Gap 6L, Glomerular Filtration Rate > 60.0, Blood Urea Nitrogen 27H, Creatinine 0.97, Sodium Level 143, Potassium Level 3.3L, Chloride Level 105, Carbon Dioxide Level 32, Calcium Level 8.7, Magnesium Level 2.3, C-Reactive Protein, Quantitative 1.70H CBC/BMP Laboratory Tests 07/29/17 06:26 Red Blood Count 5.43, Mean Corpuscular Volume 81.0, Mean Corpuscular Hemoglobin 26.5 L, Mean Corpuscular Hemoglobin Concent 32.7, Red Cell Distribution Width 14.2, Calcium Level 8.7 Microbiology Microbiology 07/25/17 Blood Culture - Preliminary, Resulted No Growth after 72 hours. All specime... 07/25/17 Blood Culture - Final, Complete Micrococcus Luteus 07/25/17 Respiratory Virus Panel (PCR) ([facility]) - Final, Complete Parainfluenza 3 (Piv3) ANTONINA STEINER DO Jul 29, 2017 14:08
[2017-07-29 15:34] VITALS: O2SAT 90
[2017-07-29 22:00] VITALS: BP 146/74
[2017-07-30] MEDS: IPRATROPIUM 0.5MG/ALBUTEROL 2.5MG INH SOL UD 3ML (DUONEB)(J7620) NEB SCH ×4 (01:20→19:51)
[2017-07-30 06:00] VITALS: BP 138/74
[2017-07-30 07:11] LABS: MEAN CORPUSCULAR HEMOGLOBIN 26.7 pg (27.0-33.0); MEAN CORPUSCULAR HGB CONC 32.7 g/dl (32.0-36.5); MEAN CORPUSCULAR VOLUME 81.6 fl (80.0-96.0); RED CELL DISTRIBUTION WIDTH 14.3 % (11.5-14.5); WHITE BLOOD COUNT 12.4 10^3/uL (4.0-10.0)
[2017-07-30 07:25] LABS: ANION GAP 7 MEQ/L (8-16); BLOOD UREA NITROGEN 26 MG/DL (7-18); CALCIUM LEVEL 8.4 MG/DL (8.5-10.1); CARBON DIOXIDE LEVEL 32 MEQ/L (21-32); CHLORIDE LEVEL 105 MEQ/L (98-107); CREATININE FOR GFR 1.03 MG/DL (0.70-1.30); GLOMERULAR FILTRATION RATE > 60.0 (>56); GLUCOSE, FASTING 77 MG/DL (70-105); MAGNESIUM LEVEL 2.5 MG/DL (1.8-2.4); POTASSIUM SERUM 3.3 MEQ/L (3.5-5.1); SODIUM LEVEL 144 MEQ/L (136-145)
[2017-07-30] MEDS: TIOTROPIUM INHALER/CAPSULE (SPIRIVA) INH SCH (07:34)
[2017-07-30] MEDS ORDERED: PRED10PA PO (08:16)
[2017-07-30] MEDS ORDERED: MUCI600T31 PO (08:16)
[2017-07-30] MEDS ORDERED: CEFD300CAP PO (08:16)
[2017-07-30] MEDS: NICOTINE 21MG/24HR 1 EA TRANSDERMAL TD SCH (09:00)
[2017-07-30] MEDS: SENOKOT S TAB PO SCH ×3 (09:00→20:15)
[2017-07-30] MEDS: ENOXAPARIN 40 MG/0.4 ML SYRINGE (J1650) SC SCH (09:07)
[2017-07-30] MEDS: hydroCHLOROthiazide 25 MG TAB PO SCH (09:07)
[2017-07-30] MEDS: predniSONE 20 MG TAB PO SCH (09:08)
[2017-07-30] MEDS: CEFDINIR 300 MG CAP (OMNICEF) PO SCH ×2 (09:08→20:15)
[2017-07-30] MEDS: guaiFENesin ER 600 MG TAB PO SCH ×2 (09:08→20:15)
[2017-07-30] MEDS: CLOPIDOGREL 75 MG TAB PO SCH (09:08)
[2017-07-30] MEDS: LOSARTAN 50 MG TAB PO SCH (09:08)
[2017-07-30] MEDS: IPRATROPIUM 0.5MG/ALBUTEROL 2.5MG INH SOL UD 3ML (DUONEB)(J7620) NEB PRN ×2 (10:22→19:51)
--- NOTE | 2017-07-30 13:36 | IPNPDOC ---
Date Seen The patient was seen on 07/30/17. Progress Note SUBJECTIVE: Patient is a 56 yo male seen at bedside having some improvement in SOB, ELLER, mildly productive cough. Denies CP, N/V/D. Tolerating PO intake. BM regular. OBJECTIVE PHYSICAL EXAMINATION: VITAL SIGNS: Please see below. GENERAL: NAD A&OX3 HEENT: PERRLA, throat clear, neck supple. No JVD CARDIOVASCULAR: RRR. RESPIRATORY: faint expiratory wheeze and no longer requiring O2 supplementation. ABDOMINAL: soft, NT/ND, normoactive bowel sounds EXTREMITIES: no edema, no calf tenderness NEUROLOGICAL: CN II-XII grossly intact, no deficits PSYCHOLOGICAL: negative LABORATORY DATA: Please see below. MICROBIOLOGY: Please see below. DVT prophylaxis ordered?: [yes] ASSESSMENT AND PLAN: This is a 56 yo with hypoxic respiratory failure at time of admission. Showing better improvement today. PROBLEMS: 1. Acute hypoxic respiratory failure: Parainfluenza positive on respiratory panel, continue with supportive therapy, nebs. Is tolerating walking in hallway better today but he's subjectively not feeling that he's ready for discharge. Likely ready tomorrow. 2. Mild Leukocytosis: likely steroid demargination. 3. COPD: Continue nebulizers and Rocephin/Zithromax switched to PO Omnicef and oral Prednisone. 4. Hypokalemia: resolved 5. Hypertension: Stable. Continue Cozaar and HCTZ 6. Prior history of CVA Continue to watch blood pressure and continue Plavix 7. Tobacco use: Counseling provided in the emergency department . Continue NicoDerm patch DISPOSITION: Anticipate discharge tomorrow. Rx for omnicef/guaifenesin and prednisone sent to his pharmacy already. VS, I&O, 24H, Fishbone Vital Signs/I&O Vital Signs Date Time Temp Pulse Resp B/P (MAP) Pulse Ox O2 Delivery O2 Flow Rate FiO2 07/30/17 09:08 138/74 07/30/17 06:00 97.4 81 18 93 Room Air 07/29/17 14:00 2.0 07/25/17 23:38 31 I&O- Last 24 Hours up to 6 AM 07/31/17 06:00 Intake Total 320 ml Output Total 375 ml Balance -55 ml Laboratory Data 24H LABS Laboratory Tests 2 07/30/17 05:55: Nucleated Red Blood Cells % (auto) 0.0, Anion Gap 7L, Glomerular Filtration Rate > 60.0, Blood Urea Nitrogen 26H, Creatinine 1.03, Sodium Level 144, Potassium Level 3.3L, Chloride Level 105, Carbon Dioxide Level 32, Calcium Level 8.4L, Magnesium Level 2.5H, C-Reactive Protein, Quantitative 1.33H CBC/BMP Laboratory Tests 07/30/17 05:55 Red Blood Count 5.66, Mean Corpuscular Volume 81.6, Mean Corpuscular Hemoglobin 26.7 L, Mean Corpuscular Hemoglobin Concent 32.7, Red Cell Distribution Width 14.3, Calcium Level 8.4 L Microbiology Microbiology 07/25/17 Blood Culture - Preliminary, Resulted No Growth after 72 hours. All specime... 07/25/17 Blood Culture - Final, Complete Micrococcus Luteus 07/25/17 Respiratory Virus Panel (PCR) ([facility]) - Final, Complete Parainfluenza 3 (Piv3) ANTONINA STEINER DO Jul 30, 2017 13:36
--- NOTE | 2017-07-30 13:53 | DS.PDOC ---
Discharge Summary General Date of Admission Jul 26, 2017 at 00:27 Date of Discharge Jul 31, 2017 Primary Care Physician: ANTHONY FIELDS DO Attending Physician: ANTONINA STEINER DO Discharge Summary PROCEDURES PERFORMED DURING STAY: [None]. COMPLICATIONS: NONE ADMITTING DIAGNOSES / DISCHARGE DIAGNOSES: 1. Acute hypoxic respiratory failure with positive Parainfluenza on respiratory panel: continue home supportive therapy 2. COPD (not O2 or steroid dependent) 3. Hypokalemia: resolved 4. Hypertension: stable 5. Prior history of CVA: no issues 6. Tobacco use: encouraged cessation/counseling provided COMPLICATIONS/CHIEF COMPLAINT: Copd Exacerbation. HOSPITAL COURSE: [56 yo male presented to ED on 07/26/2017 with sever/ significant shortness of breath, tightness in chest without CP and significant expiratory wheeze. Lethargy and subjective fever with chills/rigors. No significant Productive sputum or hemoptysis. EMS noted that the patient had O2 saturations of 67% and transported to hospital. Hospitalist called for admission because of symptoms showing little improvement from nebs and having hypoxia]. DISCHARGE MEDICATIONS: Please see below. ALLERGIES: Please see below. LABORATORY DATA: Please see below. IMAGING: [ 1. Chest CT Angiogram: No evidence for pulmonary embolism. Minimal ground glass densities in the left lower lobe (likely viral vs atypical pneumonia).] 2. portable CXR: Limited portable examination. No focal consolidation, obvious effusion or pneumothorax. MICRO: 1. Respiratory virus panel PCR: Parainfluenza 3 2. Blood culture: Micrococcus Luteus (skin sukhdev/contaminate) positive on only one of two bottles. ACTIVITY: [As tolerated]. DIET: [regular]. DISCHARGE CONDITION: [Stable]. DISPOSITION: D/C home DISCHARGE INSTRUCTIONS: Follow up with Dr. Fields in 1-2 weeks. Finish Antibiotics and medications as prescribed. Return to work later this week is fine. Activity as tolerated and regular diet. Seek medical attention should symptoms worsen. He voices understanding. TRANSITION OF CARE ITEMS: NONE TIME SPENT ON DISCHARGE: Greater than [30] minutes. Vital Signs/I&Os Vital Signs Date Time Temp Pulse Resp B/P (MAP) Pulse Ox O2 Delivery O2 Flow Rate FiO2 07/30/17 09:08 138/74 07/30/17 06:00 97.4 81 18 93 Room Air 07/29/17 14:00 2.0 07/25/17 23:38 31 I&O- Last 24 Hours up to 6 AM 07/31/17 06:00 Intake Total 320 ml Output Total 375 ml Balance -55 ml Laboratory Data Labs 24H Laboratory Tests 2 07/30/17 05:55: Nucleated Red Blood Cells % (auto) 0.0, Anion Gap 7L, Glomerular Filtration Rate > 60.0, Blood Urea Nitrogen 26H, Creatinine 1.03, Sodium Level 144, Potassium Level 3.3L, Chloride Level 105, Carbon Dioxide Level 32, Calcium Level 8.4L, Magnesium Level 2.5H, C-Reactive Protein, Quantitative 1.33H CBC/BMP Laboratory Tests 07/30/17 05:55 Red Blood Count 5.66, Mean Corpuscular Volume 81.6, Mean Corpuscular Hemoglobin 26.7 L, Mean Corpuscular Hemoglobin Concent 32.7, Red Cell Distribution Width 14.3, Calcium Level 8.4 L Microbiology Microbiology 07/25/17 Blood Culture - Preliminary, Resulted No Growth after 72 hours. All specime... 07/25/17 Blood Culture - Final, Complete Micrococcus Luteus 07/25/17 Respiratory Virus Panel (PCR) ([facility]) - Final, Complete Parainfluenza 3 (Piv3) Discharge Medications Scheduled (Arnuity Ellipta) 200 Mcg/Act Inh, 200 MCG INH QHS, (Reported) (Striverdi Respimat) 2.5 Mcg/Act Aer, 5 MCG INH DAILY, (Reported) Cefdinir (Cefdinir) 300 Mg Cap, 300 MG PO BID Clopidogrel Bisulfate (Clopidogrel) 75 Mg Tab, 75 MG PO QAM, (Reported) Guaifenesin (Mucinex) 600 Mg Tab, 1,200 MG PO BID Hydrochlorothiazide (Hydrochlorothiazide) 50 Mg Tab, 50 MG PO DAILY, (Reported) Losartan Potassium (Losartan Potassium) 100 Mg Tab, 100 MG PO DAILY, (Reported) Nicotine (Nicotine Step 1) 21 Mg/24 Hr Dis, 21 MG TD DAILY, (Reported) RIGHT ARM Prednisone (Prednisone) 10 Mg Roberto, 10 MG PO DAILY 60mg dail60 mg daily x3days; 50mg daily x3days; 40mg daily x3days; 30mg daily x3days; 20mg daily x3days; 10mg daily x3dys Scheduled PRN Albuterol Sulfate (Ventolin Hfa) 200 Puff/8 Gm Aers, 2 PUFF INH QID PRN for RESPIRATORY DISTRESS, (Reported) Allergies Coded Allergies: Codeine (Verified Adverse Reaction, Unknown, nausea, 12/20/16) ANTONINA STEINER DO Jul 30, 2017 13:53
[2017-07-30 14:00] VITALS: BP 157/87
[2017-07-30 19:51] VITALS: O2SAT 91
[2017-07-30 22:00] VITALS: BP 154/88
[2017-07-31] MEDS: IPRATROPIUM 0.5MG/ALBUTEROL 2.5MG INH SOL UD 3ML (DUONEB)(J7620) NEB SCH ×2 (02:10→08:00)
[2017-07-31] MEDS: IPRATROPIUM 0.5MG/ALBUTEROL 2.5MG INH SOL UD 3ML (DUONEB)(J7620) NEB PRN (02:10)
[2017-07-31 06:00] VITALS: BP 124/66
[2017-07-31 06:31] LABS: MEAN CORPUSCULAR HEMOGLOBIN 26.5 pg (27.0-33.0); MEAN CORPUSCULAR HGB CONC 32.6 g/dl (32.0-36.5); MEAN CORPUSCULAR VOLUME 81.2 fl (80.0-96.0); RED CELL DISTRIBUTION WIDTH 14.3 % (11.5-14.5); WHITE BLOOD COUNT 13.3 10^3/uL (4.0-10.0)
[2017-07-31 06:55] LABS: ANION GAP 4 MEQ/L (8-16); BLOOD UREA NITROGEN 25 MG/DL (7-18); CALCIUM LEVEL 8.7 MG/DL (8.5-10.1); CARBON DIOXIDE LEVEL 34 MEQ/L (21-32); CHLORIDE LEVEL 105 MEQ/L (98-107); CREATININE FOR GFR 0.94 MG/DL (0.70-1.30); GLOMERULAR FILTRATION RATE > 60.0 (>56); GLUCOSE, FASTING 101 MG/DL (70-105); MAGNESIUM LEVEL 2.3 MG/DL (1.8-2.4); POTASSIUM SERUM 3.2 MEQ/L (3.5-5.1); SODIUM LEVEL 143 MEQ/L (136-145)
[2017-07-31] MEDS: TIOTROPIUM INHALER/CAPSULE (SPIRIVA) INH SCH (08:00)
[2017-07-31] MEDS ORDERED: predniSONE 20 MG TAB PO SCH (09:00)
[2017-07-31] MEDS: SENOKOT S TAB PO SCH (09:00)
[2017-07-31] MEDS: CEFDINIR 300 MG CAP (OMNICEF) PO SCH (09:26)
[2017-07-31] MEDS: CLOPIDOGREL 75 MG TAB PO SCH (09:26)
[2017-07-31] MEDS: hydroCHLOROthiazide 25 MG TAB PO SCH (09:26)
[2017-07-31 09:27] VITALS: BP 130/70
[2017-07-31] MEDS: guaiFENesin ER 600 MG TAB PO SCH (09:27)
[2017-07-31] MEDS: LOSARTAN 50 MG TAB PO SCH (09:27)
[2017-07-31] MEDS: NICOTINE 21MG/24HR 1 EA TRANSDERMAL TD SCH (09:28)
--- NOTE | 2017-07-31 09:31 | DSES ---
DATE OF ADMISSION: 07/26/2017 DATE OF DISCHARGE: The patient has already been discharged by Dr. Diaz. He was discharged yesterday with plans to go home today. ADDENDUM: The patient had room air Oxygen saturations and remained overnight 2% with ambulation. So he was not discharged on any supplement oxygen. Importance of smoking cessation was discussed.
[2017-08-03] MEDS ORDERED: predniSONE 20 MG TAB PO SCH (09:00)
[2017-08-06] MEDS ORDERED: predniSONE 10 MG TAB PO SCH (09:00)
[2017-08-09] MEDS ORDERED: predniSONE 20 MG TAB PO SCH (09:00)
[2017-08-12] MEDS ORDERED: predniSONE 10 MG TAB PO SCH (09:00)
== END 2017-07-31 11:35 | disposition home or self-care (01) | DRG 140 ==
LOC: M ED 22:19 → M ED INP 07-26 00:27 → M MS5PR 07-26 15:10
PROVIDERS: ADMIT Hospitalist; ATTEND Hospitalist
DX: J44.1 Chronic obstructive pulmonary disease with (acute) exacerbation (principal); J96.01 Acute respiratory failure with hypoxia; J10.1 Influenza due to other identified influenza virus with other respiratory manifestations; F17.210 Nicotine dependence, cigarettes, uncomplicated; E87.6 Hypokalemia; I10 Essential (primary) hypertension; Z86.73 Personal history of transient ischemic attack (TIA), and cerebral infarction without residual deficits; Z79.899 Other long term (current) drug therapy; Z88.5 Allergy status to narcotic agent; Z79.52 Long term (current) use of systemic steroids; B34.8 Other viral infections of unspecified site

== ENCOUNTER 2017-08-03 18:02 | Emergency (ER) | payer OTHER ==
[~2017-08-03] VITALS: Ht 177.8 cm; Wt 108.6 kg
[~2017-08-03 18:02] MED LIST changes: -ELIQ5TAB PO; -PRED10TA2
[2017-08-03] MEDS ORDERED: PRED10TA2 (18:17)
[2017-08-03] MEDS ORDERED: APIXABAN 5 MG TAB (ELIQUIS) PO ONE (19:30)
[2017-08-03 20:17] LABS: INR 0.96
[2017-08-03] MEDS ORDERED: ELIQ5TAB PO (20:25)
[2017-08-03 20:31] VITALS: BP 125/82
== END 2017-08-03 20:40 | disposition home or self-care (01) ==
LOC: M ED 18:02
DX: I82.402 Acute embolism and thrombosis of unspecified deep veins of left lower extremity (principal); F17.200 Nicotine dependence, unspecified, uncomplicated; Z79.01 Long term (current) use of anticoagulants; Z79.899 Other long term (current) drug therapy; Z88.5 Allergy status to narcotic agent

== ENCOUNTER → 2017-08-03 | Outpatient (CLI) | payer OTHER ==
[~2017-08-03] MED LIST changes: +CEFD300CAP PO; +ELIQ5TAB PO; +HYDR50TAB PO; +LOSA100T36 PO; +MUCI600T31 PO; +NICODIS TD; +PRED10PA PO; +PRED10TA2; +STRI1AER2 INH
--- NOTE | 2017-08-03 17:46 | REP ---
LEFT LOWER EXTREMITY DOPPLER VENOUS ULTRASOUND: 08/03/2017: Clinical history: Thrombophlebitis. Comparison: 01/04/2017. Findings: The deep venous system from the popliteal fossa to the groin studied with compression ultrasound, duplex Doppler interrogation, color flow and teresa-scale imaging. There is occlusive thrombus in the popliteal vein and nonocclusive thrombus in the distal SFV. The remainder of the SFV and common femoral veins are intact and show full compressibility, color flow throughout and respiratory variation and augmented flow. The greater saphenous vein is occluded from its junction to the knee. Impression: 1. Evidence for acute DVT with occlusive thrombus in the popliteal vein, nonocclusive thrombus in the distal SFV in the thigh, just above it. The remainder of the deep venous system was intact. 2. The greater saphenous vein of the superficial system is also occluded from its junction with the deep system to the knee representing superficial thrombophlebitis. Signed by Armando Amato MD 08/03/2017 08:11 P
== END ==
LOC: M RAD 16:56
PROVIDERS: ATTEND Student in an Organized Health Care Education/Training Program
DX: I82.432 Acute embolism and thrombosis of left popliteal vein (principal); I82.812 Embolism and thrombosis of superficial veins of left lower extremity

== ENCOUNTER → 2017-10-26 | Outpatient (CLI) | payer OTHER | LOC: M RAD 12:47 | DX: I70.213 Atherosclerosis of native arteries of extremities with intermittent claudication, bilateral legs (principal); I80.202 Phlebitis and thrombophlebitis of unspecified deep vessels of left lower extremity | CPT/HCPCS: 93971 ==

== ENCOUNTER 2017-11-13 23:32 | Emergency (ER) | payer OTHER ==
[2017-11-14] MEDS: dexameTHASONE 20 MG/5 ML VIAL (J1100) IV (01:00)
[2017-11-14] MEDS: NS 500 ML IV (01:04)
[2017-11-14] MEDS: IPRATROPIUM 0.5MG/ALBUTEROL 2.5MG INH SOL UD 3ML (DUONEB)(J7620) NEB (01:26)
[2017-11-14 02:01] LABS: INFLUENZA A AMPLIFICATION NEGATIVE (NEGATIVE); INFLUENZA B AMPLIFICATION NEGATIVE (NEGATIVE)
== END 2017-11-14 02:37 | disposition home or self-care (01) ==
LOC: M ED 23:32
DX: J20.9 Acute bronchitis, unspecified (principal); R00.0 Tachycardia, unspecified; I77.89 Other specified disorders of arteries and arterioles; I45.2 Bifascicular block; I10 Essential (primary) hypertension; J44.9 Chronic obstructive pulmonary disease, unspecified; Z86.73 Personal history of transient ischemic attack (TIA), and cerebral infarction without residual deficits; F17.200 Nicotine dependence, unspecified, uncomplicated; Z79.899 Other long term (current) drug therapy; Z88.5 Allergy status to narcotic agent
CPT/HCPCS: J1100

== ENCOUNTER → 2017-11-22 | Outpatient (REF) | payer OTHER ==
[2017-11-22 12:22] LABS: ANION GAP 6 MEQ/L (8-16); BLOOD UREA NITROGEN 23 MG/DL (7-18); CALCIUM LEVEL 9.2 MG/DL (8.5-10.1); CARBON DIOXIDE LEVEL 36 MEQ/L (21-32); CHLORIDE LEVEL 101 MEQ/L (98-107); CREATININE FOR GFR 1.12 MG/DL (0.70-1.30); GLOMERULAR FILTRATION RATE > 60.0 (>56); GLUCOSE, FASTING 85 MG/DL (70-100); POTASSIUM SERUM 3.3 MEQ/L (3.5-5.1); SODIUM LEVEL 143 MEQ/L (136-145)
== END ==
LOC: M SFHCPLAZ 09:26
DX: I10 Essential (primary) hypertension (principal)

== ENCOUNTER 2018-09-20 09:14 | Emergency (ER) | payer OTHER ==
[2018-09-20] MEDS: predniSONE 20 MG TAB PO (09:42)
[2018-09-20] MEDS: IPRATROPIUM 0.5MG/ALBUTEROL 2.5MG INH SOL UD 3ML (DUONEB)(J7620) NEB ×2 (09:50→10:00)
[2018-09-20 10:26] LABS: INFLUENZA A AMPLIFICATION NEGATIVE (NEGATIVE); INFLUENZA B AMPLIFICATION NEGATIVE (NEGATIVE)
== END 2018-09-20 11:09 | disposition home or self-care (01) ==
LOC: M ED 09:14
DX: J44.1 Chronic obstructive pulmonary disease with (acute) exacerbation (principal); I10 Essential (primary) hypertension; F17.210 Nicotine dependence, cigarettes, uncomplicated; Z86.73 Personal history of transient ischemic attack (TIA), and cerebral infarction without residual deficits
CPT/HCPCS: 71046

== ENCOUNTER 2018-09-21 13:51 | Inpatient (IN) | payer OTHER ==
[2018-09-21] MEDS: ALBUTEROL SULFATE 2.5 MG/0.5 ML INH NEB SOLN INH (14:36)
[2018-09-21] MEDS: IPRATROPIUM 0.5MG/ALBUTEROL 2.5MG INH SOL UD 3ML (DUONEB)(J7620) NEB ×2 (14:36→23:42)
[2018-09-21 14:43] LABS: VENOUS BASE EXCESS 4.2 (-2.0-2.0); VENOUS HCO3 30.7 MEQ/L (23.0-27.0); VENOUS O2 SATURATION 84.4 % (60.0-80.0); VENOUS PARTIAL PRESSURE CO2 51.9 mmHg (38.0-50.0); VENOUS STANDARD HCO3 27.7 MEQ/L; VENOUS TOTAL CO2 32.3 MEQ/L (24.0-28.0)
[2018-09-21 14:53] LABS: BASO % 0.4 % (0.0-1.0); EOS % 0.3 % (0.0-3.0); HEMATOCRIT 51.5 % (42.0-52.0); HEMOGLOBIN 17.2 g/dl (13.5-17.5); IMMATURE GRANULOCYTE % 0.4 % (0-3.0); LYMPH # 1.2 10^3/uL (1.5-4.5); MEAN CORPUSCULAR HEMOGLOBIN 27.3 pg (27.0-33.0); MEAN CORPUSCULAR HGB CONC 33.4 g/dl (32.0-36.5); MEAN CORPUSCULAR VOLUME 81.7 fl (80.0-96.0); NEUTROPHILS # 8.9 10^3/uL (1.8-7.7); NEUTROPHILS % 78.9 % (36.0-66.0); PLATELET COUNT, AUTOMATED 219 10^3/uL (150-450); RED CELL DISTRIBUTION WIDTH 14.6 % (11.5-14.5); WHITE BLOOD COUNT 11.2 10^3/uL (4.0-10.0)
[2018-09-21] MEDS: dexameTHASONE 20 MG/5 ML VIAL (J1100) IV (14:54)
[2018-09-21] MEDS: NS 1,000 ML IV (14:54)
[2018-09-21 15:20] LABS: ALBUMIN 3.7 GM/DL (3.2-5.2); ALBUMIN/GLOBULIN RATIO 1.28 (1.00-1.93); ALKALINE PHOSPHATASE 96 U/L (45-117); ALT/SGPT 26 U/L (12-78); ANION GAP 10 MEQ/L (8-16); AST/SGOT 21 U/L (7-37); BILIRUBIN,DIRECT 0.2 MG/DL (0.0-0.2); BILIRUBIN,TOTAL 0.6 MG/DL (0.2-1.0); BLOOD UREA NITROGEN 19 MG/DL (7-18); CALCIUM LEVEL 8.6 MG/DL (8.5-10.1); CARBON DIOXIDE LEVEL 29 MEQ/L (21-32); CHLORIDE LEVEL 106 MEQ/L (98-107); CPK CREATINE PHOSPHOKINASE 213 U/L (39-308); CREATININE FOR GFR 1.09 MG/DL (0.70-1.30); GLOMERULAR FILTRATION RATE > 60.0 (>56); GLUCOSE, FASTING 98 MG/DL (70-100); MB/CK RELATIVE INDEX 2.68 (< OR =4); NT-PRO BNP 436 PG/ML (<125); POTASSIUM SERUM 3.7 MEQ/L (3.5-5.1); SODIUM LEVEL 145 MEQ/L (136-145); TOTAL PROTEIN 6.6 GM/DL (6.4-8.2); TROPONIN I < 0.02 NG/ML (< 0.10)
[2018-09-21] MEDS ORDERED: ACETAMINOPHEN TAB 650MG DOSE (2X325MG) PO (16:00)
[2018-09-21] MEDS ORDERED: ALBUTEROL SULFATE 2.5 MG/0.5 ML INH NEB SOLN NEB (16:15)
[2018-09-21] MEDS: AZITHROMYCIN INJ 500 MG, VIAL MATE ADAPTER 1 EACH in D5W 250 ML IV (16:53)
[2018-09-21] MEDS: APIXABAN 5 MG TAB (ELIQUIS) PO (20:03)
[2018-09-22 06:22] LABS: HEMATOCRIT 47.3 % (42.0-52.0); HEMOGLOBIN 15.7 g/dl (13.5-17.5); MEAN CORPUSCULAR HEMOGLOBIN 26.7 pg (27.0-33.0); MEAN CORPUSCULAR HGB CONC 33.2 g/dl (32.0-36.5); MEAN CORPUSCULAR VOLUME 80.4 fl (80.0-96.0); PLATELET COUNT, AUTOMATED 217 10^3/uL (150-450); RED BLOOD COUNT 5.88 10^6/uL (4.30-6.10); RED CELL DISTRIBUTION WIDTH 14.3 % (11.5-14.5); WHITE BLOOD COUNT 10.7 10^3/uL (4.0-10.0)
[2018-09-22] MEDS: IPRATROPIUM 0.5MG/ALBUTEROL 2.5MG INH SOL UD 3ML (DUONEB)(J7620) NEB ×6 (06:27→23:52)
[2018-09-22 06:45] LABS: ANION GAP 9 MEQ/L (8-16); BLOOD UREA NITROGEN 19 MG/DL (7-18); CALCIUM LEVEL 8.6 MG/DL (8.5-10.1); CARBON DIOXIDE LEVEL 28 MEQ/L (21-32); CHLORIDE LEVEL 107 MEQ/L (98-107); CREATININE FOR GFR 1.03 MG/DL (0.70-1.30); GLOMERULAR FILTRATION RATE > 60.0 (>56); GLUCOSE, FASTING 121 MG/DL (70-100); SODIUM LEVEL 144 MEQ/L (136-145)
[2018-09-22] MEDS: TIOTROPIUM INHALER/CAPSULE (SPIRIVA) INH (07:32)
[2018-09-22] MEDS: hydroCHLOROthiazide 25 MG TAB PO (09:39)
[2018-09-22] MEDS: POTASSIUM CHLORIDE 10 MEQ SR TABLET PO (09:39)
[2018-09-22] MEDS: APIXABAN 5 MG TAB (ELIQUIS) PO ×2 (09:39→20:01)
[2018-09-22] MEDS: predniSONE 20 MG TAB PO (09:40)
[2018-09-22] MEDS: CLOPIDOGREL 75 MG TAB PO (09:40)
[2018-09-22] MEDS: LOSARTAN 50 MG TAB PO (09:40)
[2018-09-22] MEDS: SYMBICORT 160/4.5MCG INHALER 6GM INH ×2 (15:35→20:15)
[2018-09-22] MEDS: VANCOMYCIN HCL 1,000 MG, VIAL MATE ADAPTER 1 EACH in D5W 250 ML IV ×2 (16:00→21:43)
[2018-09-22] MEDS: AZITHROMYCIN INJ 500 MG, VIAL MATE ADAPTER 1 EACH in D5W 250 ML IV (18:38)
[2018-09-23] MEDS: IPRATROPIUM 0.5MG/ALBUTEROL 2.5MG INH SOL UD 3ML (DUONEB)(J7620) NEB ×6 (04:29→23:39)
[2018-09-23] MEDS: VANCOMYCIN HCL 1,000 MG, VIAL MATE ADAPTER 1 EACH in D5W 250 ML IV ×3 (05:41→21:46)
[2018-09-23 06:03] LABS: ANION GAP 7 MEQ/L (8-16); BLOOD UREA NITROGEN 19 MG/DL (7-18); CALCIUM LEVEL 8.4 MG/DL (8.5-10.1); CARBON DIOXIDE LEVEL 28 MEQ/L (21-32); CHLORIDE LEVEL 107 MEQ/L (98-107); CREATININE FOR GFR 1.08 MG/DL (0.70-1.30); GLOMERULAR FILTRATION RATE > 60.0 (>56); GLUCOSE, FASTING 92 MG/DL (70-100); POTASSIUM SERUM 3.3 MEQ/L (3.5-5.1); SODIUM LEVEL 142 MEQ/L (136-145)
[2018-09-23 06:16] LABS: HEMATOCRIT 48.2 % (42.0-52.0); HEMOGLOBIN 15.8 g/dl (13.5-17.5); MEAN CORPUSCULAR HEMOGLOBIN 27.2 pg (27.0-33.0); MEAN CORPUSCULAR HGB CONC 32.8 g/dl (32.0-36.5); MEAN CORPUSCULAR VOLUME 83.1 fl (80.0-96.0); PLATELET COUNT, AUTOMATED 203 10^3/uL (150-450); RED CELL DISTRIBUTION WIDTH 14.6 % (11.5-14.5)
[2018-09-23] MEDS: TIOTROPIUM INHALER/CAPSULE (SPIRIVA) INH (07:14)
[2018-09-23] MEDS: SYMBICORT 160/4.5MCG INHALER 6GM INH ×2 (07:14→19:39)
[2018-09-23] MEDS: POTASSIUM CHLORIDE 10 MEQ SR TABLET PO ×2 (10:02→20:23)
[2018-09-23] MEDS: CLOPIDOGREL 75 MG TAB PO (10:02)
[2018-09-23] MEDS: APIXABAN 5 MG TAB (ELIQUIS) PO ×2 (10:02→20:22)
[2018-09-23] MEDS: hydroCHLOROthiazide 25 MG TAB PO (10:03)
[2018-09-23] MEDS: predniSONE 20 MG TAB PO (10:03)
[2018-09-23] MEDS: LOSARTAN 50 MG TAB PO (10:03)
[2018-09-23] MEDS: LORazepam 0.5 MG TAB PO (10:45)
[2018-09-23] MEDS: AZITHROMYCIN INJ 500 MG, VIAL MATE ADAPTER 1 EACH in D5W 250 ML IV (16:49)
[2018-09-24 06:05] LABS: HEMATOCRIT 48.5 % (42.0-52.0); HEMOGLOBIN 16.1 g/dl (13.5-17.5); MEAN CORPUSCULAR HEMOGLOBIN 27.1 pg (27.0-33.0); MEAN CORPUSCULAR HGB CONC 33.2 g/dl (32.0-36.5); MEAN CORPUSCULAR VOLUME 81.6 fl (80.0-96.0); PLATELET COUNT, AUTOMATED 227 10^3/uL (150-450); RED BLOOD COUNT 5.94 10^6/uL (4.30-6.10); RED CELL DISTRIBUTION WIDTH 14.4 % (11.5-14.5)
[2018-09-24 06:26] LABS: ANION GAP 7 MEQ/L (8-16); BLOOD UREA NITROGEN 19 MG/DL (7-18); CALCIUM LEVEL 9.2 MG/DL (8.5-10.1); CARBON DIOXIDE LEVEL 30 MEQ/L (21-32); CHLORIDE LEVEL 104 MEQ/L (98-107); CREATININE FOR GFR 1.16 MG/DL (0.70-1.30); GLOMERULAR FILTRATION RATE > 60.0 (>56); GLUCOSE, FASTING 96 MG/DL (70-100); POTASSIUM SERUM 3.8 MEQ/L (3.5-5.1); SODIUM LEVEL 141 MEQ/L (136-145)
[2018-09-24] MEDS: VANCOMYCIN HCL 1,000 MG, VIAL MATE ADAPTER 1 EACH in D5W 250 ML IV ×2 (06:39→14:22)
[2018-09-24] MEDS: CLOPIDOGREL 75 MG TAB PO (08:02)
[2018-09-24] MEDS: POTASSIUM CHLORIDE 10 MEQ SR TABLET PO (08:02)
[2018-09-24] MEDS: APIXABAN 5 MG TAB (ELIQUIS) PO ×2 (08:02→20:56)
[2018-09-24] MEDS: LOSARTAN 50 MG TAB PO (08:03)
[2018-09-24] MEDS: hydroCHLOROthiazide 25 MG TAB PO (08:03)
[2018-09-24] MEDS: predniSONE 20 MG TAB PO (08:03)
[2018-09-24] MEDS: TIOTROPIUM INHALER/CAPSULE (SPIRIVA) INH (08:32)
[2018-09-24] MEDS: IPRATROPIUM 0.5MG/ALBUTEROL 2.5MG INH SOL UD 3ML (DUONEB)(J7620) NEB ×3 (08:32→15:16)
[2018-09-24] MEDS: SYMBICORT 160/4.5MCG INHALER 6GM INH ×2 (08:32→22:07)
[2018-09-24] MEDS: LORazepam 0.5 MG TAB PO ×2 (10:30→23:56)
[2018-09-24] MEDS: AZITHROMYCIN INJ 500 MG, VIAL MATE ADAPTER 1 EACH in D5W 250 ML IV (17:00)
[2018-09-25] MEDS: IPRATROPIUM 0.5MG/ALBUTEROL 2.5MG INH SOL UD 3ML (DUONEB)(J7620) NEB (00:02)
[2018-09-25 06:30] LABS: HEMATOCRIT 44.9 % (42.0-52.0); HEMOGLOBIN 14.7 g/dl (13.5-17.5); MEAN CORPUSCULAR HEMOGLOBIN 26.9 pg (27.0-33.0); MEAN CORPUSCULAR HGB CONC 32.7 g/dl (32.0-36.5); MEAN CORPUSCULAR VOLUME 82.1 fl (80.0-96.0); PLATELET COUNT, AUTOMATED 214 10^3/uL (150-450); RED BLOOD COUNT 5.47 10^6/uL (4.30-6.10); RED CELL DISTRIBUTION WIDTH 14.4 % (11.5-14.5); WHITE BLOOD COUNT 11.1 10^3/uL (4.0-10.0)
[2018-09-25 06:52] LABS: ANION GAP 5 MEQ/L (8-16); BLOOD UREA NITROGEN 21 MG/DL (7-18); CALCIUM LEVEL 8.3 MG/DL (8.5-10.1); CARBON DIOXIDE LEVEL 32 MEQ/L (21-32); CHLORIDE LEVEL 104 MEQ/L (98-107); CREATININE FOR GFR 1.16 MG/DL (0.70-1.30); GLOMERULAR FILTRATION RATE > 60.0 (>56); GLUCOSE, FASTING 89 MG/DL (70-100); POTASSIUM SERUM 3.5 MEQ/L (3.5-5.1); SODIUM LEVEL 141 MEQ/L (136-145)
[2018-09-25] MEDS: SYMBICORT 160/4.5MCG INHALER 6GM INH (07:28)
[2018-09-25] MEDS: TIOTROPIUM INHALER/CAPSULE (SPIRIVA) INH (07:28)
[2018-09-25] MEDS: APIXABAN 5 MG TAB (ELIQUIS) PO (08:54)
[2018-09-25] MEDS: POTASSIUM CHLORIDE 10 MEQ SR TABLET PO (08:54)
[2018-09-25] MEDS: predniSONE 20 MG TAB PO (08:54)
[2018-09-25] MEDS: hydroCHLOROthiazide 25 MG TAB PO (08:55)
[2018-09-25] MEDS: CLOPIDOGREL 75 MG TAB PO (08:55)
[2018-09-25] MEDS: LOSARTAN 50 MG TAB PO (08:58)
== END 2018-09-25 10:41 | disposition home or self-care (01) | DRG 140 ==
LOC: M ED 13:51 → M ED INP 15:55 → M MSPAV 17:59
DX: J44.1 Chronic obstructive pulmonary disease with (acute) exacerbation (principal); J96.10 Chronic respiratory failure, unspecified whether with hypoxia or hypercapnia; F41.9 Anxiety disorder, unspecified; I10 Essential (primary) hypertension; E87.6 Hypokalemia; Z86.73 Personal history of transient ischemic attack (TIA), and cerebral infarction without residual deficits; Z86.718 Personal history of other venous thrombosis and embolism; F17.200 Nicotine dependence, unspecified, uncomplicated; B97.89 Other viral agents as the cause of diseases classified elsewhere; Z79.01 Long term (current) use of anticoagulants; Z79.899 Other long term (current) drug therapy

== ENCOUNTER 2018-10-24 15:54 | Emergency (ER) | payer OTHER ==
[~2018-10-24] VITALS: Ht 180.3 cm; Wt 111.4 kg
[~2018-10-24 15:54] MED LIST changes: +ACET500T15 PO; -ACET50TAOT PO; +ELIQ5TAB PO; +INCR1INH INH; -LOSA100T36 PO; +LOSA100T50 PO; -LOSA50TA20 PO; +LOSA50TA88 PO; +NICO21DI34 TD; -NICODIS TD; +POTA10CA32 PO; +PRED10TA2; +PRED20TA PO; +VENTAER INH
[2018-10-24] MEDS ORDERED: dexameTHASONE 20 MG/5 ML VIAL (J1100) IV ONE (16:15)
[2018-10-24] MEDS: IPRATROPIUM 0.5MG/ALBUTEROL 2.5MG INH SOL UD 3ML (DUONEB)(J7620) NEB PRN ×3 (16:31→17:12)
--- NOTE | 2018-10-24 16:32 | REP ---
Chest one-view HISTORY: Cough Comparison: 09/21/2018 A calcified granuloma is present in the left lower lobe. The right lung is clear. The heart is normal in size. The pulmonary vasculature is normal in appearance. Impression: No acute disease. Electronically Signed by Gregorio Mendoza MD 10/24/2018 04:23 P
[2018-10-24 16:35] LABS: BASO % 0.5 % (0.0-1.0); EOS # 0.1 10^3/uL (0.0-0.50); EOS % 0.7 % (0.0-3.0); HEMATOCRIT 52.3 % (42.0-52.0); HEMOGLOBIN 17.2 g/dl (13.5-17.5); LYMPH # 1.1 10^3/uL (1.5-4.5); MEAN CORPUSCULAR HEMOGLOBIN 26.9 pg (27.0-33.0); MEAN CORPUSCULAR HGB CONC 32.9 g/dl (32.0-36.5); MEAN CORPUSCULAR VOLUME 81.7 fl (80.0-96.0); MONO # 1.2 10^3/uL (0.0-0.8); MONO % 16.1 % (0.0-5.0); NEUTROPHILS # 5.2 10^3/uL (1.8-7.7); NEUTROPHILS % 68.3 % (36.0-66.0); PLATELET COUNT, AUTOMATED 239 10^3/uL (150-450); WHITE BLOOD COUNT 7.6 10^3/uL (4.0-10.0)
[2018-10-24 16:53] LABS: BLOOD UREA NITROGEN 21 MG/DL (7-18); CALCIUM LEVEL 9.4 MG/DL (8.5-10.1); CARBON DIOXIDE LEVEL 29 MEQ/L (21-32); CHLORIDE LEVEL 105 MEQ/L (98-107); CREATININE FOR GFR 1.26 MG/DL (0.70-1.30); GLOMERULAR FILTRATION RATE > 60.0 (>56); GLUCOSE, FASTING 98 MG/DL (70-100); POTASSIUM SERUM 4.2 MEQ/L (3.5-5.1); SODIUM LEVEL 142 MEQ/L (136-145)
[2018-10-24 17:05] LABS: INFLUENZA A AMPLIFICATION NEGATIVE (NEGATIVE); INFLUENZA B AMPLIFICATION NEGATIVE (NEGATIVE)
[2018-10-24] MEDS ORDERED: ISOVUE-370 76% 100ML VIAL (Q9967) As Ordered ONE (17:36)
--- NOTE | 2018-10-24 18:27 | REP ---
CT ANGIOGRAM OF THE CHEST: TECHNIQUE: Axial contrast enhanced images from the thoracic inlet to the upper abdomen using 100 mL Isovue 370 intravenous contrast material with multiplanar reformations. There is no CT evidence of pulmonary embolism or aortic dissection. There is no aneurysm of the thoracic aorta. The heart is normal in size. There is no pleural or pericardial effusion. There is no mediastinal, hilar or chest wall lymphadenopathy. Scattered fibrotic changes are seen in the lungs bilaterally. A calcified granuloma is seen in the right lower lobe as well as the left lower lobe. Visualized upper abdominal structures are unremarkable. There are diffuse degenerative changes of the spine. IMPRESSION: No CT evidence of pulmonary embolism or aortic dissection. Electronically Signed by Washington Blanco MD 10/24/2018 07:59 P
[2018-10-24] MEDS ORDERED: ZITH500T PO (18:56)
[2018-10-24] MEDS ORDERED: MEDR4PAK PO (18:56)
[2018-10-24] MEDS ORDERED: AZITHROMYCIN 250 MG TAB PO ONE (19:00)
[2018-10-24 19:03] VITALS: BP 122/76
== END 2018-10-24 19:06 | disposition home or self-care (01) ==
LOC: M ED 15:54
DX: J44.1 Chronic obstructive pulmonary disease with (acute) exacerbation (principal); I10 Essential (primary) hypertension; Z86.718 Personal history of other venous thrombosis and embolism; Z86.73 Personal history of transient ischemic attack (TIA), and cerebral infarction without residual deficits; Z79.899 Other long term (current) drug therapy; Z79.01 Long term (current) use of anticoagulants; Z88.5 Allergy status to narcotic agent; F17.210 Nicotine dependence, cigarettes, uncomplicated
CPT/HCPCS: 71045; 71275; 80048; 85025; 87502; 93041; 94640; 94760; 96374; 99285; J1100; Q9967

== ENCOUNTER → 2019-06-26 | Outpatient (CLI) | payer OTHER ==
[~2019-06-26] MED LIST changes: +MEDR4PAK PO; +ZITH500T PO
[2019-06-26 11:00] LABS: CHOLESTEROL RISK RATIO 2.857 (<5)
[2019-06-26 11:28] LABS: HEMOGLOBIN A1c 5.8 %
== END ==
LOC: M LAB 10:05
PROVIDERS: ATTEND Family Medicine
DX: Z00.00 Encounter for general adult medical examination without abnormal findings (principal)

== ENCOUNTER 2019-07-08 05:22 | Inpatient (IN) | payer OTHER ==
[~2019-07-08] VITALS: Ht 180.3 cm; Wt 109.1 kg
[2019-07-08] MEDS ORDERED: IPRATROPIUM 0.5MG/ALBUTEROL 2.5MG INH SOL UD 3ML (DUONEB)(J7620) As Ordered ONE ×2 (05:32→05:40)
[2019-07-08] MEDS ORDERED: LevoFLOXacin IV 750 MG in APPROPRIATE DILUENT 1 EA IV ONE (06:00)
[2019-07-08] MEDS ORDERED: methylPREDNISolone INJ 125 MG/2 ML VIAL (J2930) IV ONE (06:00)
[2019-07-08 06:02] LABS: BASO % 0.3 % (0.0-1.0); EOS % 0.3 % (0.0-3.0); HEMATOCRIT 54.5 % (42.0-52.0); HEMOGLOBIN 18.1 g/dl (13.5-17.5); LYMPH # 0.9 10^3/uL (1.5-5.0); LYMPH % 6.7 % (24.0-44.0); MEAN CORPUSCULAR HEMOGLOBIN 27.3 pg (27.0-33.0); MEAN CORPUSCULAR HGB CONC 33.2 g/dl (32.0-36.5); MEAN CORPUSCULAR VOLUME 82.2 fl (80.0-96.0); MONO # 0.9 10^3/uL (0.0-0.8); MONO % 6.5 % (0.0-5.0); NEUTROPHILS # 11.2 10^3/uL (1.5-8.5); NEUTROPHILS % 85.7 % (36.0-66.0); PLATELET COUNT, AUTOMATED 253 10^3/uL (150-450); RED BLOOD COUNT 6.63 10^6/uL (4.30-6.10); WHITE BLOOD COUNT 13.1 10^3/uL (4.0-10.0)
[2019-07-08 06:07] LABS: BLOOD UREA NITROGEN 19 MG/DL (7-18); CALCIUM LEVEL 9.3 MG/DL (8.5-10.1); CARBON DIOXIDE LEVEL 31 MEQ/L (21-32); CHLORIDE LEVEL 104 MEQ/L (98-107); CREATININE FOR GFR 1.23 MG/DL (0.70-1.30); GLOMERULAR FILTRATION RATE > 60.0 (>56); GLUCOSE, FASTING 126 MG/DL (70-100); POTASSIUM SERUM 3.4 MEQ/L (3.5-5.1); SODIUM LEVEL 142 MEQ/L (136-145)
[2019-07-08] MEDS ORDERED: IPRATROPIUM 0.5MG/ALBUTEROL 2.5MG INH SOL UD 3ML (DUONEB)(J7620) NEB ONE ×2 (06:15)
[2019-07-08] MEDS ORDERED: ELIQ5TAB PO (06:32)
[2019-07-08] MEDS ORDERED: PRED10TA2 PO (06:32)
--- NOTE | 2019-07-08 06:35 | REP ---
Clinical: Shortness of breath. Technique: Portable upright AP view of the chest. Comparison: 10/24/2018. Findings: Mediastinum and cardiac silhouette are normal. Chronic bibasilar changes are appreciated with superimposed left lower lobe infiltrate/atelectasis. No obvious effusion. No pneumothorax. Skeletal structures intact. Impression: Chronic stable changes with superimposed left lower lobe infiltrate/atelectasis. Electronically Signed by Satish Hernandez MD 07/08/2019 06:26 A
[2019-07-08] MEDS ORDERED: ALBUTEROL 90 MCG/ACT 8GM HFA INHALER INH PRN (11:15)
[2019-07-08] MEDS ORDERED: guaiFENesin 200 MG TAB PO PRN (13:15)
[2019-07-08] MEDS: IPRATROPIUM 0.5MG/ALBUTEROL 2.5MG INH SOL UD 3ML (DUONEB)(J7620) NEB SCH ×2 (13:27→20:56)
[2019-07-08] MEDS: PANTOPRAZOLE 40MG INJ (PROTONIX) (C9113) IV SCH (13:31)
[2019-07-08] MEDS: hydroCHLOROthiazide 25 MG TAB PO SCH (13:31)
[2019-07-08] MEDS: CLOPIDOGREL 75 MG TAB PO SCH (13:31)
[2019-07-08] MEDS: POTASSIUM CHLORIDE 10 MEQ SR TABLET PO SCH (13:32)
[2019-07-08] MEDS: LOSARTAN 50 MG TAB PO SCH (13:32)
[2019-07-08] MEDS: APIXABAN 5 MG TAB (ELIQUIS) PO SCH ×2 (13:32→20:51)
[2019-07-08] MEDS: ACETAMINOPHEN TAB 650MG DOSE (2X325MG) PO PRN ×2 (13:36→20:52)
--- NOTE | 2019-07-08 14:34 | HPEPDOC ---
[facility] Medical History & Physical Date of Admission Jul 08, 2019 Date of Service: Jul 08, 2019 Primary Care Physician: MILY OLIVEIRA DO Attending Physician: CLYDE SALOMON MD History and Physical CHIEF COMPLAINT: Shortness of breath HISTORY OF PRESENT ILLNESS: Clifford is a 58-year-old male with pertinent past medical history of COPD, chronic tobacco use, CVA, TIA, left lower extremity DVT, and hypertension, who presented to the emergency department early this morning with progressively worsening shortness of breath. He presented to his primary care physician on Monday (07/03) with a complaint of chest tightness. Patient was prescribed a 5 day PO prednisone course which began on (07/04). Patient says his symptoms went away for a few days after initiating the prednisone. Last evening around 5-6 PM he became acutely short of breath and was unable to catch his breath regardless of his body positioning. His respiratory distress steadily got worse until around 4 AM when he was unable to relax or slow his respirations down, and had to support his body while breathing. Activity of any kind worsens his symptoms and nothing seems to diminish or improve them. He complains of associated lightheadedness with balance issues, in the form of instability, and chest tightness. He had the same symptom presentation in October 2018 when he was admitted here at [facility], and has had four total symptom presentations in his lifetime that are similar to today's. Patient does not use oxygen at home, and takes albuterol, Incruse ellipta, Olodaterol, and Arnuity ellipta as outpatient. He is a long-time smoker who currently smokes about 6 cigarettes per day, with previous history of 1-2 packs per day. With the exception of the recent 5 day prednisone course, he denies any recent medication changes. He also denies recent travel. He states he's had recent exposure to a sick roommate and coworkers with cold symptoms. Patient's PCP is Dr. Oliveira in the [facility] resident clinic. In the emergency department, patient received 2 nebulizer treatments, a course of Levaquin, and oxygen supplementation in the form of 2 L via nasal cannula. Clifford will be admitted under the care of the hospitalist team to the general medical floor for symptom monitoring and medication administration. PAST MEDICAL HISTORY: 1. COPD 2. CVA (2009) with resulting left lower extremity weakness; currently on clopidogrel for antiplatelet coverage as outpatient 3. TIA (2002). 4. Lower extremity DVT (2018, posterior left knee), currently on Eliquis for anticoagulation as outpatient. 5. 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 Admits to previous long-time use of 1-2 ppd. ETOH: Denies Illicit drug use: Denies IV drug use: Denies FAMILY HISTORY: Father: , history of lung cancer Mother: , history of Alzheimer's disease ALLERGIES: Please see below. REVIEW OF SYSTEMS: CONSTITUTIONAL: Admits to intentional weight loss of roughly 10 pounds over the past 4 months; denies chills, fever, or night sweats HEENT: Endorses rhinorrhea; endorses forehead pressure around his temples bilaterally; Denies recent changes in visual acuity, diplopia, blurry vision, eye pain; denies tinnitus or ear pain; denies sore throat CARDIOVASCULAR: Endorses palpitations earlier but none at time of exam; Denies chest pain or chest pressure; denies lower extremity edema. RESPIRATORY: Endorses productive cough with predominant clear and thick sputum with occasional yellow/green coloring; endorses chest tightness, stating he "can't move air;" endorses orthopnea; denies hemoptysis; denies pleuritic chest pain GASTROINTESTINAL: Denies abdominal pain, denies nausea, denies vomiting, denies constipation or diarrhea. GENITOURINARY: Denies hematuria or dysuria. SKIN: Denies rashes or itching MUSCULOSKELETAL: Denies muscle or joint pain. NEUROLOGICAL: Endorses lightheadedness, endorses balance instability, endorses left lower extremity weakness PSYCHIATRIC: Denies depressed mood or anxiety ENDOCRINE: Endorses mild cold intolerance. HEMATOLOGIC/LYMPHATIC:, Endorses easy bleeding (patient currently on Eliquis and Plavix, and as outpatient). HOME MEDICATIONS: Please see below. PHYSICAL EXAMINATION: VITAL SIGNS: Please see below GENERAL APPEARANCE: Patient is a male who appears to be in mild respiratory distress while sitting up at the side of his bed leaning on both forearms onto a desk. He appears to be using accessory muscles, particularly trapezius muscles, and is exhibiting pursed lip breathing. He is on 2 L nasal cannula. He is responding to commands and questioning appropriately. He is able to respond in full sentences despite respiratory status. He is cooperative. He appears well nourished. HEENT: Atraumatic, normocephalic. PERRLA and EOMI nares are patent bilaterally with no visible discharge. No cervical or supraclavicular lymphadenopathy appreciated on palpation. No tenderness to palpation of maxillary or frontal sinuses. Poor upper and lower dentition. Mildly erythematous uvula with no visible exudate. Mucous membranes are pink and moist. Neck is supple with trachea midline. CARDIOVASCULAR: Tachycardic, normal S1 and normal S2. No murmurs, rubs, or gallops appreciated on auscultation. Difficult to appreciate carotids via auscultation due to upper airway breath sounds/wheezes. No visible JVD. LUNGS: Bronchovesicular breath sounds with audible wheezes with naked ear. There are squeaks and an expiratory wheezes on auscultation diffusely, anteriorly and posteriorly. Patient is using accessory muscles and pursed lip breathing to assist with respiration. He is leaning forward, resting on his forearms. Chest expansion is symmetric. Productive cough elicited on respiratory auscultation. ABDOMEN: Soft, nontender, nondistended with no rebound, guarding, or rigidity. Normoactive bowel sounds present. MUSCULOSKELETAL:. 5 out of 5 muscle strength testing upper extremities and lower extremities bilaterally. EXTREMITIES: Left lower extremity swelling with no appreciable pitting edema., No right lower extremity edema. 2+ radial and posterior tibial pulses bilaterally NEUROLOGICAL: Awake, alert and oriented 3. Cranial nerves II through XII grossly intact. Sensation to light touch intact upper extremity, lower extremity bilaterally. PSYCHIATRIC:, Appropriate mood and appropriate affect. SKIN: Patient's forehead and forearm skin clammy to touch LABORATORY DATA: See below. IMAGING: Portable chest x-ray, 07/08: Showed chronic stable changes with superimposed left lower lobe infiltrate/atelectasis MICROBIOLOGY: Please see below ASSESSMENT & PLAN: #Acute exacerbation of COPD 2/2 upper respiratory rhinovirus/enterovirus infection -Patient received 2 nebulizer treatments in the ED and one course of IV Levaquin -Viral respiratory panel was positive for human rhinovirus/enterovirus -Patient has duonebs ordered every 6 hours with when necessary duonebs every 2 hours -Acapella respiratory treatment ordered to follow DuoNeb administration in order to optimize clearing of secretions -Guaifenesin ordered to assist in mucus breakup and expectoration -Patient initially got better 5 days ago with course of by mouth prednisone, then subsequently had respiratory status decline. With respiratory status decline and presence of new left lower lobe atelectasis/infiltrate on chest x- ray this morning, patient receiving 750 mg Levaquin daily. Pro calcitonin ordered with CBC and metabolic profile rechecks -PO prednisone as outpatient discontinued and patient was switched to IV methylprednisolone -Portable chest x-ray this morning (07/08) showed left lower lobe atelectasi s/infiltrate -Standard insulin sliding scale added due to potential for hyperglycemia as result of patient's IV steroid administration. On PMH questioning, pt is not diabetic and takes no diabetic medication at home. -Protonix ordered for stress ulcer prophylaxis -2 blood cultures are pending, as is a sputum culture and Gram stain #Essential hypertension -Patient's blood pressures 125/80 this morning; continue to monitor for change in vitals -Continue with home dosing of losartan, and hydrochlorothiazide with accompanying potassium chloride supplementation #History of CVA (2009) and TIA (2002) -Continue with home clopidogrel #History of left lower extremity DVT (2018) -Pt had posterior left knee DVT diagnosed in 2018. -Continue with home Eliquis #DVT prophylaxis -We will continue with patient's home Eliquis for anticoagulation coverage #Stress ulcer prophylaxis -Patient on Protonix Vital Signs Vital Signs Date Time Temp Pulse Resp B/P (MAP) Pulse Ox O2 Delivery O2 Flow Rate FiO2 07/08/19 12:48 98.9 99 26 147/90 (109) 96 Nasal Cannula 3.0 Laboratory Data Labs 24H Laboratory Tests 2 07/08/19 05:30: 07/08/19 05:35: Immature Granulocyte % (Auto) 0.5, White Blood Count 13.1H, Red Blood Count 6.63H, Hemoglobin 18.1H, Hematocrit 54.5H, Mean Corpuscular Volume 82.2, Mean Corpuscular Hemoglobin 27.3, Mean Corpuscular Hemoglobin Concent 33.2, Red Cell Distribution Width 14.9H, Platelet Count 253, Neutrophils (%) (Auto) 85.7H, Lymphocytes (%) (Auto) 6.7L, Monocytes (%) (Auto) 6.5H, Eosinophils (%) (Auto) 0.3, Basophils (%) (Auto) 0.3, Neutrophils # (Auto) 11.2H, Lymphocytes # (Auto) 0.9L, Monocytes # (Auto) 0.9H, Eosinophils # (Auto) 0.0, Basophils # (Auto) 0.0, Nucleated Red Blood Cells % (auto) 0.0, Anion Gap 7L, Glomerular Filtration Rate > 60.0, Lactic Acid Level 1.6, Blood Urea Nitrogen 19H, Creatinine 1.23, Sodium Level 142, Potassium Level 3.4L, Chloride Level 104, Carbon Dioxide Level 31, Calcium Level 9.3 07/08/19 05:42: POC pH (Misc Panel) 7.332L, POC Base Excess (Misc Panel) 4.0H, POC Saturated Percent O2 (Misc) 98, POC pO2 (Misc Panel) 123.0H, POC pCO2 (Misc Panel) 56.3H, POC HCO3 (Misc Panel) 29.9H, POC Total CO2 (Misc Panel) 32.0H CBC/BMP Laboratory Tests 07/08/19 05:35 Red Blood Count 6.63 H, Mean Corpuscular Volume 82.2, Mean Corpuscular Hemoglobin 27.3, Mean Corpuscular Hemoglobin Concent 33.2, Red Cell Distribution Width 14.9 H, Neutrophils (%) (Auto) 85.7 H, Lymphocytes (%) (Auto) 6.7 L, Monocytes (%) (Auto) 6.5 H, Eosinophils (%) (Auto) 0.3, Basophils (%) (Auto) 0.3, Neutrophils # (Auto) 11.2 H, Lymphocytes # (Auto) 0.9 L, Monocytes # (Auto) 0.9 H, Eosinophils # (Auto) 0.0, Basophils # (Auto) 0.0, Calcium Level 9.3 Microbiology Microbiology 07/08/19 Blood Culture, Received Pending 07/08/19 Blood Culture, Received Pending 07/08/19 Gram Stain, Received Pending 07/08/19 Sputum Culture, Received Pending 07/08/19 Respiratory Virus Panel (PCR) (DORA) - Final, Complete Human Rhinovirus/Enterovirus Home Medications Scheduled Apixaban (Eliquis) 5 Mg Tablet, 5 MG PO BID Clopidogrel Bisulfate (Clopidogrel) 75 Mg Tab, 75 MG PO DAILY Fluticasone Furoate (Arnuity Ellipta) 200 Mcg/Act Inh, 200 MCG INH QHS Hydrochlorothiazide (Hydrochlorothiazide) 50 Mg Tab, 50 MG PO DAILY Losartan Potassium (Losartan Potassium) 100 Mg Tab, 100 MG PO DAILY Olodaterol HCl (Striverdi Respimat) 2.5 Mcg/Act Aer, 2 PUFF INH DAILY Potassium Chloride (Potassium Chloride) 10 Meq Cap, 10 MEQ PO DAILY Prednisone (Prednisone) 10 Mg Tablet, 40 MG PO DAILY Umeclidinium Java (Incruse Ellipta) 62.5 Mcg/Inh Inh, 1 PUFF INH DAILY Scheduled PRN Albuterol Sulfate (Ventolin Hfa) 108 Mcg/Act Aer, 2 PUFF INH Q4H PRN for SHORTNESS OF BREATH Allergies Coded Allergies: codeine (Verified Allergy, Unknown, NAUSEA, 07/08/19) A-FIB/CHADSVASC A-FIB History Current/History of A-Fib/PAF?: No Current PO Anticoag Therapy: Yes Age/Risk Factor Scoring CHADSVASC: CHADSVASC Response (Comments) Value Age Risk Factor Age < 65 years old 0 Gender Risk Factor Male 0 Hx of CHF No 0 Hx of HTN Yes 1 Hx of Stroke/TIA/or VTE Yes 2 Hx of Diabetes No 0 Hx of Vascular Disease No 0 Total 3 Treatment Treatment ordered: Apixaban SANCHEZ YANEZ PGY-1 Jul 08, 2019 14:34
[2019-07-08] MEDS: IPRATROPIUM 0.5MG/ALBUTEROL 2.5MG INH SOL UD 3ML (DUONEB)(J7620) NEB PRN ×2 (15:17→17:16)
[2019-07-08] MEDS: methylPREDNISolone INJ 125 MG/2 ML VIAL (J2930) IV SCH (16:20)
[2019-07-08] MEDS ORDERED: GLUCOSE 4 GM CHEW TABLET PO PRN (17:30)
[2019-07-08] MEDS ORDERED: DEXTROSE 50% 50 ML SYRINGE IV PRN (17:30)
[2019-07-08] MEDS ORDERED: GLUCAGON FOR INJ 1 MG VIAL (J1610) SC PRN (17:30)
--- NOTE | 2019-07-08 21:28 | ECGEPIP ---
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
[2019-07-08 22:00] VITALS: BP 131/88
[2019-07-09] MEDS: IPRATROPIUM 0.5MG/ALBUTEROL 2.5MG INH SOL UD 3ML (DUONEB)(J7620) NEB SCH ×4 (01:45→21:05)
[2019-07-09 06:00] VITALS: BP 137/86
[2019-07-09 06:45] LABS: HEMATOCRIT 52.9 % (42.0-52.0); HEMOGLOBIN 17.2 g/dl (13.5-17.5); MEAN CORPUSCULAR HEMOGLOBIN 26.8 pg (27.0-33.0); MEAN CORPUSCULAR HGB CONC 32.5 g/dl (32.0-36.5); MEAN CORPUSCULAR VOLUME 82.5 fl (80.0-96.0); PLATELET COUNT, AUTOMATED 250 10^3/uL (150-450); RED BLOOD COUNT 6.41 10^6/uL (4.30-6.10); WHITE BLOOD COUNT 16.3 10^3/uL (4.0-10.0)
[2019-07-09] MEDS: LevoFLOXacin 750 MG TABLET PO SCH (06:59)
[2019-07-09] MEDS: methylPREDNISolone INJ 125 MG/2 ML VIAL (J2930) IV SCH (06:59)
[2019-07-09 07:01] LABS: BLOOD UREA NITROGEN 21 MG/DL (7-18); CALCIUM LEVEL 9.7 MG/DL (8.5-10.1); CARBON DIOXIDE LEVEL 27 MEQ/L (21-32); CHLORIDE LEVEL 103 MEQ/L (98-107); CREATININE FOR GFR 1.25 MG/DL (0.70-1.30); GLOMERULAR FILTRATION RATE > 60.0 (>56); GLUCOSE, FASTING 120 MG/DL (70-100); POTASSIUM SERUM 3.5 MEQ/L (3.5-5.1); SODIUM LEVEL 139 MEQ/L (136-145)
[2019-07-09] MEDS: HumaLOG INSULIN (NovoLOG) PER UNIT SC PRN ×3 (09:10→18:15)
[2019-07-09] MEDS: CLOPIDOGREL 75 MG TAB PO SCH (09:12)
[2019-07-09] MEDS: POTASSIUM CHLORIDE 10 MEQ SR TABLET PO SCH (09:12)
[2019-07-09] MEDS: hydroCHLOROthiazide 25 MG TAB PO SCH (09:12)
[2019-07-09] MEDS: LOSARTAN 50 MG TAB PO SCH (09:13)
[2019-07-09] MEDS: APIXABAN 5 MG TAB (ELIQUIS) PO SCH ×2 (09:13→21:31)
[2019-07-09] MEDS: PANTOPRAZOLE 40MG INJ (PROTONIX) (C9113) IV SCH (09:13)
[2019-07-09] MEDS: IPRATROPIUM 0.5MG/ALBUTEROL 2.5MG INH SOL UD 3ML (DUONEB)(J7620) NEB PRN (10:30)
--- NOTE | 2019-07-09 13:36 | IPNPDOC ---
Text Note Date of Service The patient was seen on 07/09/19. NOTE HPI: Mr. Justin was seen at bedside today and reported that his SOB had improved from yesterday following nebulizer and steroid treatments. He also states that he slept upright in his chair yesterday which was beneficial to his breathing. He still reports having a productive cough with yellow-tinged sputum and he does still admit to some SOB, especially when moving around his room. He denies any other changes, acute problems or chest pain. He was interested in understanding the etiology of his COPD exacerbation and inquired about the sputum results which were positive for rhinovirus and enterovirus. ROS: Constitutional: Negative for fever, chills, night sweats, weight loss since his hospitalization. Prior to admission he had intentionally lost 10 lbs in the past 4 months. Pulmonary: Positive for SOB on exertion and productive cough. Cardiovascular: Negative for chest pain, palpitations. States he had felt palpitations when he was first admitted due to his HR being elevated (140+). Abdomen: Negative for abdominal pain, N/V, diarrhea or constipation MSK: Denies new onset muscle weakness Neurological: Denies paresthesia or muscle weakness Most Current Vitals: BP: 146/88 HR: 107 RR: 18 O2: 92% on 2 L O2 Temp: 97.2 Physical exam: Pt is an obese male sitting in a chair in mild distress. Pulmonary: Rhonchi, inspiratory and expiratory wheezing noted B/L Cardiovascular: Regular rhythm, no murmurs, knocks, rubs noted Abdomen: No pain on palpation or guarding noted. Normal bowel sounds in all 4 quadrants. Extremities: No clubbing or cyanosis noted in his extremities. Scattered bruising noted in his distal L LE Psych: Well-mannered and cooperative to exam. Alert and aware X3 Labs: CBC : WBC 16.3 (was 13.1 on 07/08/2019) Assessment and plan: #COPD Exacerbation likely due to URT infection via enterovirus and rhinovirus: Methylprednisone dosage changed from 80 mg Q12H to 40 [address] IV. Continue st eroid, albuterol/ipratropium, guaifenesin and Acapella treatments. Sliding scale insulin added in the vent of hyperglycemia 2/2 steroid treatments. Will add on Pulmicort 0.5 mg BID per respiratory therapy recommendation. Continue Levofloxacin to prevent bacterial pneumonia 2/2 to decreased respiratory ability. #Essential HTN: Continue losartan and HCTZ with KCL supplementation. BP i\remains moderately elevated with SBP approximately 140 and DBP in the high 80s. Recommend starting patient on low sodium diet and recommend continued intentional weight loss. Will continue to monitor. #Tachycardia: Tachycardia 2/2 patients current high work of breathing, hypoxia, and steroid therapy. #Hx of CVA (2009) and TIA (2002): Continue Clopidogrel #DVT prophylaxis: Continue Apixaban (Eliquis) treatment #Stress ulcer prophylaxis: Continue on Protonix Disposition: D/C pending stabilization and improvement of Mr. Mederos pulmonary function. VS,Fishbone, I+O VS, Fishbone, I+O Laboratory Tests 07/09/19 06:25 Red Blood Count 6.41 H, Mean Corpuscular Volume 82.5, Mean Corpuscular Hemoglobin 26.8 L, Mean Corpuscular Hemoglobin Concent 32.5, Red Cell Distribution Width 15.2 H, Calcium Level 9.7 Vital Signs Date Time Temp Pulse Resp B/P (MAP) Pulse Ox O2 Delivery O2 Flow Rate FiO2 07/09/19 09:13 148/89 07/09/19 09:00 2.0 07/09/19 06:00 97.4 97 18 99 07/08/19 12:48 Nasal Cannula I&O- Last 24 Hours up to 6 AM 07/09/19 05:59 Intake Total 386 ml Output Total 1275 ml Balance -889 ml GME ATTESTATION GME ATTESTATION My faculty preceptor for this patient encounter was physically present during the encounter and was fully available. All aspects of the patient interview, examination, medical decision making process, and medical care plan development were reviewed and approved by the faculty preceptor. The faculty preceptor is aware and concurs with the plan as stated in the body of this note and will attest to such by his/her cosignature. ATTENDING NOTE Patient was seen and examined by me this morning with the residents. Agree with the above assessment and plan ELLIOTT SUTHERLAND-3 Jul 09, 2019 13:36 SASKIA LOVELL MD Jul 10, 2019 13:12
[2019-07-09 14:00] VITALS: BP 146/88
[2019-07-09] MEDS: methylPREDNISolone INJ 40 MG/1 ML VIAL (J2920) IV SCH (18:15)
[2019-07-09] MEDS: BUDESONIDE 0.5 MG/2 ML INHALATION SUSPENSION INH SCH (21:05)
[2019-07-09 22:00] VITALS: BP 150/89
[2019-07-10] MEDS: IPRATROPIUM 0.5MG/ALBUTEROL 2.5MG INH SOL UD 3ML (DUONEB)(J7620) NEB SCH ×4 (01:53→20:00)
[2019-07-10 06:00] VITALS: BP 147/86
[2019-07-10 06:24] LABS: HEMATOCRIT 49.3 % (42.0-52.0); MEAN CORPUSCULAR HEMOGLOBIN 26.9 pg (27.0-33.0); MEAN CORPUSCULAR HGB CONC 32.5 g/dl (32.0-36.5); PLATELET COUNT, AUTOMATED 223 10^3/uL (150-450); RED BLOOD COUNT 5.94 10^6/uL (4.30-6.10)
[2019-07-10] MEDS: LevoFLOXacin 750 MG TABLET PO SCH (06:34)
[2019-07-10] MEDS: methylPREDNISolone INJ 40 MG/1 ML VIAL (J2920) IV SCH (06:34)
[2019-07-10 06:57] LABS: BLOOD UREA NITROGEN 32 MG/DL (7-18); CALCIUM LEVEL 9.5 MG/DL (8.5-10.1); CARBON DIOXIDE LEVEL 31 MEQ/L (21-32); CHLORIDE LEVEL 102 MEQ/L (98-107); CREATININE FOR GFR 1.15 MG/DL (0.70-1.30); GLOMERULAR FILTRATION RATE > 60.0 (>56); GLUCOSE, FASTING 108 MG/DL (70-100); POTASSIUM SERUM 3.7 MEQ/L (3.5-5.1); SODIUM LEVEL 141 MEQ/L (136-145)
[2019-07-10] MEDS: BUDESONIDE 0.5 MG/2 ML INHALATION SUSPENSION INH SCH ×2 (07:45→20:00)
[2019-07-10 07:46] VITALS: O2SAT 94
[2019-07-10 07:58] VITALS: BP 138/80
[2019-07-10] MEDS: POTASSIUM CHLORIDE 10 MEQ SR TABLET PO SCH (08:40)
[2019-07-10] MEDS: APIXABAN 5 MG TAB (ELIQUIS) PO SCH ×2 (08:41→20:43)
[2019-07-10] MEDS: CLOPIDOGREL 75 MG TAB PO SCH (08:41)
[2019-07-10] MEDS: LOSARTAN 50 MG TAB PO SCH (08:41)
[2019-07-10] MEDS: hydroCHLOROthiazide 25 MG TAB PO SCH (08:42)
[2019-07-10] MEDS: PANTOPRAZOLE 40MG INJ (PROTONIX) (C9113) IV SCH (08:42)
--- NOTE | 2019-07-10 13:32 | IPNPDOC ---
Date Seen The patient was seen on 07/10/19. Progress Note SUBJECTIVE: Patient was seen and examined this morning. There have been no adverse events reported overnight. He states that he feels his breathing has improved significantly since when he came in. He currently denies any fevers or chills. He continues to have a productive cough although improved. He does admit to shortness of breath with exertion. He is currently 2L of oxygen via nasal cannula. He denies any chest pain or pressure OBJECTIVE PHYSICAL EXAMINATION: VITAL SIGNS: Please see below. GENERAL: Awake, alert, and oriented. Appears in no acute distress. Sitting on edge of bed comfortably. He is conversive and pleasant HEENT: Atraumatic normocephalic. Eyes are nonicteric. Trachea is midline. Mucous membranes are pink and moist. CARDIOVASCULAR: Normal S1, S2. regular rate and rhythm. No clicks rubs or murmurs RESPIRATORY: Decreased breath sounds bilaterally with rhonchi and scattered wheezing although improved from previous examination. Prolonged expiratory phase. No dullness to percussion. No accessory muscle use ABDOMINAL: soft, nondistended. Nontender to palpation in all 4 quadrants. Normoactive bowel sounds throughout EXTREMITIES: 2+ radial and posterior tibial pulses bilaterally. No clubbing or cyanosis or nail beds NEUROLOGICAL: No focal neurological deficits PSYCHOLOGICAL: Mood and affect appear appropriate LABORATORY DATA, IMAGING STUDIES, MICROBIOLOGY: Please see below. DVT prophylaxis ordered?: Patient chronically on Eliquis ASSESSMENT AND PLAN: Patient is a 58 year old male who presented to the [facility] ER with complaint of worsening shortness of breath found to have a likely COPD exacerbation PROBLEMS: 1. Chronic Obstructive Pulmonary Disease Exacerbation -Patient has COPD exacerbation likely secondary to Rhinovirus and possible superimposed bacterial pneumonia. Patient remains afebrile. His Procalcitonin is 0.03 and he has shown signs of clinical improvement -Patient has received Levoquin -IV steroids will be discontinued. Patient will be continued on 40mg Prednisone daily. -Currently on 2L O2 via nasal cannula. Will attempt to wean off O2 with goal O2 sat 88-90%. Patient will have 6 minutes walk test before discharge. -Continue respiratory therapy including duonebs. -Patient has been given Pulmicort but has refused. He states that he is on a LAMA, LABA, and ICS at home and that he takes these daily. Patient was advised that he will need to take his medications as prescribed -Patient will continue Guaifenisin and Pulmonary toilet 2. Hypertension -Patient on HCTZ and Cozaar with appropriately controlled BP. Will continue 3. Hx of TIA/CVA -Continue home Plavix 4. History of DVT -Patient has a DVT and is currently on Eliquis. Will continue 5. GI prophylaxis -Patient currently on Protonix DISPOSITION: Patient is currently pending PT clearance. Once cleared he will be assessed for home oxygen. Anticipate D/C in 24-48 hours VS, I&O, 24H, Fishbone Vital Signs/I&O Vital Signs Date Time Temp Pulse Resp B/P (MAP) Pulse Ox O2 Delivery O2 Flow Rate FiO2 07/10/19 11:27 93 1.0 07/10/19 07:58 98.6 113 20 138/80 (99) 07/10/19 07:46 Nasal Cannula I&O- Last 24 Hours up to 6 AM 07/10/19 06:00 Intake Total 2436 ml Output Total 3225 ml Balance -789 ml Laboratory Data 24H LABS Laboratory Tests 2 07/09/19 18:08: Bedside Glucose (Misc Panel) 122H 07/10/19 06:10: Nucleated Red Blood Cells % (auto) 0.0, Anion Gap 8, Glomerular Filtration Rate > 60.0, Blood Urea Nitrogen 32#H, Creatinine 1.15, Sodium Level 141, Potassium Level 3.7, Chloride Level 102, Carbon Dioxide Level 31, Calcium Level 9.5 07/10/19 11:25: Bedside Glucose (Misc Panel) 126H CBC/BMP Laboratory Tests 07/10/19 06:10 Red Blood Count 5.94, Mean Corpuscular Volume 83.0, Mean Corpuscular Hemoglobin 26.9 L, Mean Corpuscular Hemoglobin Concent 32.5, Red Cell Distribution Width 14.5, Calcium Level 9.5 Microbiology Microbiology 07/08/19 Gram Stain - Final, Complete 07/08/19 Sputum Culture - Final, Complete 07/08/19 Respiratory Virus Panel (PCR) (DORA) - Final, Complete Human Rhinovirus/Enterovirus 07/08/19 Blood Culture - Preliminary, Resulted No Growth after 48 hours. All Specime... 07/08/19 Blood Culture - Preliminary, Resulted No Growth after 48 hours. All Specime... GME ATTESTATION GME ATTESTATION My faculty preceptor for this patient encounter was physically present during the encounter and was fully available. All aspects of the patient interview, examination, medical decision making process, and medical care plan development were reviewed and approved by the faculty preceptor. The faculty preceptor is aware and concurs with the plan as stated in the body of this note and will attest to such by his/her cosignature. ATTENDING NOTE Patient was seen and examined by me this morning with the residents. Agree with the above assessment and plan GME ATTESTATION GME ATTESTATION My faculty preceptor for this patient encounter was physically present during the encounter and was fully available. All aspects of the patient interview, examination, medical decision making process, and medical care plan development were reviewed and approved by the faculty preceptor. The faculty preceptor is aware and concurs with the plan as stated in the body of this note and will attest to such by his/her cosignature. ATTENDING NOTE Patient was seen and examined by me this morning with the residents. Agree with the above assessment and plan MELISSA REDDY DO Jul 10, 2019 13:31 SASKIA LOVELL MD Jul 11, 2019 08:40
[2019-07-10 14:00] VITALS: BP 112/73
[2019-07-10 14:08] VITALS: BP 112/72
[2019-07-10] MEDS ORDERED: FLUBLOK(EGG FREE)(QUAD)INFLUENZA VACC 0.5ML SYRINGE (90682)18YRS&OLDER IM ONE (15:00)
[2019-07-10 22:00] VITALS: BP 119/77
[2019-07-11] MEDS: IPRATROPIUM 0.5MG/ALBUTEROL 2.5MG INH SOL UD 3ML (DUONEB)(J7620) NEB SCH ×2 (00:40→07:30)
[2019-07-11] MEDS: IPRATROPIUM 0.5MG/ALBUTEROL 2.5MG INH SOL UD 3ML (DUONEB)(J7620) NEB PRN (06:09)
[2019-07-11 06:45] VITALS: BP 121/79
[2019-07-11] MEDS: LevoFLOXacin 750 MG TABLET PO SCH (06:45)
[2019-07-11 07:17] LABS: HEMATOCRIT 50.4 % (42.0-52.0); HEMOGLOBIN 16.2 g/dl (13.5-17.5); MEAN CORPUSCULAR HEMOGLOBIN 26.9 pg (27.0-33.0); MEAN CORPUSCULAR HGB CONC 32.1 g/dl (32.0-36.5); MEAN CORPUSCULAR VOLUME 83.7 fl (80.0-96.0); PLATELET COUNT, AUTOMATED 202 10^3/uL (150-450); RED BLOOD COUNT 6.02 10^6/uL (4.30-6.10); WHITE BLOOD COUNT 10.7 10^3/uL (4.0-10.0)
[2019-07-11] MEDS: BUDESONIDE 0.5 MG/2 ML INHALATION SUSPENSION INH SCH ×2 (07:30→20:31)
[2019-07-11 07:41] LABS: BLOOD UREA NITROGEN 36 MG/DL (7-18); CALCIUM LEVEL 8.9 MG/DL (8.5-10.1); CARBON DIOXIDE LEVEL 33 MEQ/L (21-32); CHLORIDE LEVEL 104 MEQ/L (98-107); CREATININE FOR GFR 1.21 MG/DL (0.70-1.30); GLOMERULAR FILTRATION RATE > 60.0 (>56); GLUCOSE, FASTING 73 MG/DL (70-100); POTASSIUM SERUM 3.4 MEQ/L (3.5-5.1); SODIUM LEVEL 142 MEQ/L (136-145)
[2019-07-11] MEDS: PANTOPRAZOLE 40MG INJ (PROTONIX) (C9113) IV SCH (08:42)
[2019-07-11] MEDS: hydroCHLOROthiazide 25 MG TAB PO SCH (08:47)
[2019-07-11] MEDS: APIXABAN 5 MG TAB (ELIQUIS) PO SCH ×2 (08:47→20:40)
[2019-07-11] MEDS: POTASSIUM CHLORIDE 10 MEQ SR TABLET PO SCH (08:48)
[2019-07-11] MEDS: predniSONE 20 MG TAB PO SCH (08:48)
[2019-07-11] MEDS: CLOPIDOGREL 75 MG TAB PO SCH (08:48)
[2019-07-11] MEDS: LOSARTAN 50 MG TAB PO SCH (08:48)
[2019-07-11] MEDS ORDERED: PRED10TA2 PO (11:17)
[2019-07-11] MEDS ORDERED: LEVA750T7 PO (11:17)
--- NOTE | 2019-07-11 14:46 | DS.PDOC ---
Discharge Summary General Date of Admission Jul 08, 2019 at 09:16 Date of Discharge 07/12/19 Primary Care Physician: MILY OLIVEIRA DO Attending Physician: SASKIA LOVELL MD Discharge Summary PROCEDURES PERFORMED DURING STAY: [None]. ADMITTING DIAGNOSES: 1. COPD Exacerbation 2. Essential Hypertension DISCHARGE DIAGNOSES: 1. COPD Exacerbation 2. Essential Hypertension COMPLICATIONS/CHIEF COMPLAINT: SOB. HISTORY OF PRESENT ILLNESS: Patient is a 58 year old male who presented to the [facility] ER with complaint of progressively worsening shortness of breath over the past week. The patient was previously seen by his PCP who had started the patient on a steroid. The patient stated that when starting the steroid he had noted some improvement in his breathing. Unfortunately at the end of his steroid taper he developed shortness of breath and increased sputum production. He denied any fevers or chills. He denied any chest pain. The patient does have COPD. His most recent Spirometry was not available. In the ER the patient was found to be in mild distress with difficulty breathing. He received nebulizer treatments and a chest X-ray which demonstrated chronic stable changes with a superimposed left lower lobe infiltrate/atelectasis.The patient was subsequently admitted to hospitalist service for further evaluation and management. Once admitted the patient was placed on Duonebs. He was given IV steroids and Levoquin. He remained afebrile throughout his admission. He had a respiratory panel completed which was positive for Human Rhinovirus. The patient was weaned off of oxygen and maintained resting oxygen saturations of 90-94%. The patient acknowledged that he felt as if his breathing had improved significantly since admission. The patient received a 6 minute walk test with transient oxygen saturation of 87%. He was able to recover to his baseline of 90-94%. Patient was found fit for discharge however concern from staff regarding his breathing was raised. The patient was hospitalized for and additional night. On revevaluation he had continued improvement and stated that he had felt back to his baseline. DISCHARGE MEDICATIONS: Please see below. ALLERGIES: Please see below. PHYSICAL EXAMINATION ON DISCHARGE: VITAL SIGNS: Please see below. GENERAL: Awake, alert, and oriented. Appears in no acute distress. Sitting on edge of bed. He is conversive HEENT: Atraumatic normocephalic. eyes are nonicteric. Trachea is midline. Dentition is fair NECK: No palpable cervical, axillary, or supraclavicular lymphadenopathy CARDIOVASCULAR EXAMINATION: Normal S1, S2. Regular rate and rhythm. No clicks rubs or murmurs. No JVD. No carotid bruits RESPIRATORY EXAMINATION: Clear vesicular breath sounds bilaterally. Patient has good respiratory effort with a prolonged expiratory phase. There are no wheezes, rhonchi, or rales. No accessory muscle use. Chest rise and expansion is symmetric. ABDOMINAL EXAMINATION: Obese, soft, nondistended. Nontender to palpation in all 4 quadrants. No rebound tenderness or guarding EXTREMITIES: No edema. 2+ posterior tibial and radial pulses in the bilateral lower extremities SKIN: No rashes or lesions NEUROLOGICAL EXAMINATION: No focal neurological deficits PSYCHIATRIC EXAMINATION: Mood and affect appear appropriate for situation. LABORATORY DATA: Please see below. IMAGING: Clinical: Shortness of breath. Technique: Portable upright AP view of the chest. Comparison: 10/24/2018. Findings: Mediastinum and cardiac silhouette are normal. Chronic bibasilar changes are appreciated with superimposed left lower lobe infiltrate/atelectasis. No obvious effusion. No pneumothorax. Skeletal structures intact. Impression: Chronic stable changes with superimposed left lower lobe infiltrate/atelectasis. Electronically Signed by Satish Hernandez MD 07/08/2019 06:26 A PROGNOSIS: Good ACTIVITY: [As tolerated]. DIET: As tolerated DISCHARGE PLAN: Patient is to be discharged home with follow-up with his PCP in 1 week. He is to continue his inhalers as prescribed. He is to continue Levoquin for two more days. He is to start steroid taper. He has a nebulizer at home and was instructed to use as needed for shortness of breath. Patient is was instructed to return to the ED if his symptoms worsen. Patient was in agreement with plan. Regarding return to work the patient is to return to work on MondayJul.16. DISCHARGE CONDITION: [Stable]. TIME SPENT ON DISCHARGE: Greater than 45 minutes. Vital Signs/I&Os Vital Signs Date Time Temp Pulse Resp B/P (MAP) Pulse Ox O2 Delivery O2 Flow Rate FiO2 07/11/19 08:48 118/73 07/11/19 06:45 97.9 71 16 92 07/10/19 11:27 1.0 07/10/19 07:46 Nasal Cannula I&O- Last 24 Hours up to 6 AM 07/11/19 06:00 Intake Total 1645 ml Output Total 1000 ml Balance 645 ml Laboratory Data Labs 24H Laboratory Tests 2 07/10/19 18:25: Bedside Glucose (Misc Panel) 169H 07/11/19 06:46: Nucleated Red Blood Cells % (auto) 0.0, Anion Gap 5L, Glomerular Filtration Rate > 60.0, Blood Urea Nitrogen 36H, Creatinine 1.21, Sodium Level 142, Potassium Level 3.4L, Chloride Level 104, Carbon Dioxide Level 33H, Calcium Level 8.9 07/11/19 11:27: Bedside Glucose (Misc Panel) 127H CBC/BMP Laboratory Tests 07/11/19 06:46 Red Blood Count 6.02, Mean Corpuscular Volume 83.7, Mean Corpuscular Hemoglobin 26.9 L, Mean Corpuscular Hemoglobin Concent 32.1, Red Cell Distribution Width 14.6 H, Calcium Level 8.9 FSBS Laboratory Tests Test 07/10/19 18:25 07/11/19 11:27 Range/Units Bedside Glucose (Misc Panel) 169 127 70-105 MG/DL Microbiology Microbiology 07/08/19 Gram Stain - Final, Complete 07/08/19 Sputum Culture - Final, Complete 07/08/19 Respiratory Virus Panel (PCR) (DORA) - Final, Complete Human Rhinovirus/Enterovirus 07/08/19 Blood Culture - Preliminary, Resulted No Growth after 72 hours. All specime... 07/08/19 Blood Culture - Preliminary, Resulted No Growth after 72 hours. All specime... Discharge Medications Scheduled Apixaban (Eliquis) 5 Mg Tablet, 5 MG PO BID, (Reported) Clopidogrel Bisulfate (Clopidogrel) 75 Mg Tab, 75 MG PO DAILY, (Reported) Fluticasone Furoate (Arnuity Ellipta) 200 Mcg/Act Inh, 200 MCG INH QHS, (Re ported) Hydrochlorothiazide (Hydrochlorothiazide) 50 Mg Tab, 50 MG PO DAILY, (Reported) Levofloxacin (Levaquin) 750 Mg Tablet, 750 MG PO DAILY@06 Losartan Potassium (Losartan Potassium) 100 Mg Tab, 100 MG PO DAILY, (Reported) Olodaterol HCl (Striverdi Respimat) 2.5 Mcg/Act Aer, 2 PUFF INH DAILY, (Reported) Potassium Chloride (Potassium Chloride) 10 Meq Cap, 10 MEQ PO DAILY, (Reported) Prednisone (Prednisone) 10 Mg Tablet, 10 MG PO TAPER Take 4 tabs daily x 3 days, then 3 tabs daily x 3 days, then 2 tabs daily x 3 days, then 1 tab daily x 3 days and stop Umeclidinium [place] (Incruse Ellipta) 62.5 Mcg/Inh Inh, 1 PUFF INH DAILY, (Reported) Scheduled PRN Albuterol Sulfate (Ventolin Hfa) 108 Mcg/Act Aer, 2 PUFF INH Q4H PRN for SHORTNESS OF BREATH, (Reported) Allergies Coded Allergies: codeine (Verified Allergy, Unknown, NAUSEA, 07/08/19) GME ATTESTATION GME ATTESTATION My faculty preceptor for this patient encounter was physically present during the encounter and was fully available. All aspects of the patient interview, examination, medical decision making process, and medical care plan development were reviewed and approved by the faculty preceptor. The faculty preceptor is aware and concurs with the plan as stated in the body of this note and will attest to such by his/her cosignature. ATTENDING NOTE Patient was seen and examined by me with the residents this morning. Agree with the above assessment and plan with the following changes as below. The patient is a young gentleman with past medical history of chronic active smoking, was admitted for possible URI with a rhinovirus and COPD exacerbation. The patient had nice improvement throughout his course and this morning was sitting comfortably on the bed having his breakfast. He was able to communicate without getting short of breath. The patient was kept on IV Solu-Medrol initially, which has been tapered down to 40 daily now. Patient has had a significant improvement, but on exertion is still desaturating to upper 80s. The patient was again reevaluated later in the day as the nursing staff stated that he has been getting short of breath. Patient was supposed to undergo a 6 minute walk test and while he was getting his testing done. He felt that he was getting short of breath. Again, patient was reevaluated and at that time, the patient was again lying comfortably on the bed without the nasal cannula saturating around 96. On lung examination. There was no wheezing appreciated. The patient's heart rate as well as blood pressure were within the normal limit. On examination the patient is alert, oriented to time, place and person, in no apparent distress. Lungs are clear to auscultation bilaterally. No expiratory or inspiratory wheezing is appreciated. No rhonchi, no refills. S1 S2 is heard. Abdomen soft, nontender, nondistended. No pedal edema. Assessment and plan Given the patient's chronic active smoking with potential COPD oximetry gold stage III patient has appropriate inhalers with long-acting muscarinic inhaler and long-acting beta agonist inhaler with a rescue inhaler and inhaled corticosteroid. He needs to quit smoking. And I spoke with the respiratory therapist this morning and as the patient on minimal exertion was dropping down his sats to 87. He qualifies for home O2. The instructions are given to the nurse, as well as the respiratory therapist. He would need this oxygen therapy for at least 3 months and he needs to be reevaluated by the resistance machine welder setter for the continuation of home oxygen. He will be given a tapering dose off 40 mg of prednisone. He is clinically stable for discharge. Rest. All other chronic problem and the management as per documentation by the residents MELISSA Dc M.D, DO Jul 11, 2019 14:46 SASKIA LOVELL MD Jul 12, 2019 13:52
--- NOTE | 2019-07-11 19:01 | IPNPDOC ---
Date Seen The patient was seen on 07/11/19. Progress Note SUBJECTIVE: Patient was seen this morning and several times throughout the day. Patient had concern regarding his ability to go home. He was not complaining of significant shortness of breath. Patient has received 6 minute walk test with minimal desaturation however complained of shortness of breath while walking. Patient had been discharged. D/C has been postponed with reevaluation in the AM for possible discharge OBJECTIVE PHYSICAL EXAMINATION: VITAL SIGNS: Please see below. GENERAL: Awake, alert and oriented. Appears in no acute distress. Sitting on end of bed comfortably. Conversive HEENT: Atraumatic, normocephalic. Eyes are nonicteric. Trachea is midline CARDIOVASCULAR: Normal S1, S2. regular rate and rhythm. No clicks rubs or murmurs. No JVf RESPIRATORY: Clear vesicular breath sounds bilaterally. Patient has good respiratory effort with a prolonged expiratory phase. There are no wheezes,rhonchi, or rales. No accessory muscle use. Chest rise and expansion is symmetric. ABDOMINAL: Obese, soft, nondistended. Nontender to palpation in all 4 quadrants. No rebound tenderness or guarding EXTREMITIES: No edema. 2+ posterior tibial and radial pulses in the bilateral lower extremities NEUROLOGICAL: No focal neurological deficits PSYCHOLOGICAL: Mood and affect appear appropriate for situation. LABORATORY DATA, IMAGING STUDIES, MICROBIOLOGY: Please see below. DVT prophylaxis ordered?: YES. Chronically on Eliquis ASSESSMENT AND PLAN: Patient is a 58 year old male who presented to the [facility] ER with complaint of worsening shortness of breath found to have a likely COPD e xacerbation PROBLEMS: 1. Chronic Obstructive Pulmonary Disease Exacerbation -Patient has COPD exacerbation likely secondary to Rhinovirus and possible superimposed bacterial pneumonia. Patient remains afebrile. His Procalcitonin is 0.03 and he has shown signs of clinical improvement -Patient has improved significantly. Plan for D/C tomorrow. Continue current medications 2. Hypertension -Patient on HCTZ and Cozaar with appropriately controlled BP. Will continue 3. Hx of TIA/CVA -Continue home Plavix 4. History of DVT -Patient has a DVT and is currently on Eliquis. Will continue 5. GI prophylaxis -Patient currently on Protonix DISPOSITION: Patient was planned for D/C today however had developed shortness of breath without desaturations. Patient will be kept for 24 hours with reevaluation in the AM VS, I&O, 24H, Jenna Vital Signs/I&O Vital Signs Date Time Temp Pulse Resp B/P (MAP) Pulse Ox O2 Delivery O2 Flow Rate FiO2 07/11/19 08:48 118/73 07/11/19 06:45 97.9 71 16 92 07/10/19 11:27 1.0 07/10/19 07:46 Nasal Cannula I&O- Last 24 Hours up to 6 AM 07/11/19 06:00 Intake Total 1645 ml Output Total 1000 ml Balance 645 ml Laboratory Data 24H LABS Laboratory Tests 2 07/11/19 06:46: Nucleated Red Blood Cells % (auto) 0.0, Anion Gap 5L, Glomerular Filtration Rate > 60.0, Blood Urea Nitrogen 36H, Creatinine 1.21, Sodium Level 142, Potassium Level 3.4L, Chloride Level 104, Carbon Dioxide Level 33H, Calcium Level 8.9 07/11/19 11:27: Bedside Glucose (Misc Panel) 127H CBC/BMP Laboratory Tests 07/11/19 06:46 Red Blood Count 6.02, Mean Corpuscular Volume 83.7, Mean Corpuscular Hemoglobin 26.9 L, Mean Corpuscular Hemoglobin Concent 32.1, Red Cell Distribution Width 14.6 H, Calcium Level 8.9 Microbiology Microbiology 07/08/19 Gram Stain - Final, Complete 07/08/19 Sputum Culture - Final, Complete 07/08/19 Respiratory Virus Panel (PCR) (DORA) - Final, Complete Human Rhinovirus/Enterovirus 07/08/19 Blood Culture - Preliminary, Resulted No Growth after 72 hours. All specime... 07/08/19 Blood Culture - Preliminary, Resulted No Growth after 72 hours. All specime... GME ATTESTATION GME ATTESTATION My faculty preceptor for this patient encounter was physically present during the encounter and was fully available. All aspects of the patient interview, examination, medical decision making process, and medical care plan development were reviewed and approved by the faculty preceptor. The faculty preceptor is aware and concurs with the plan as stated in the body of this note and will attest to such by his/her cosignature. ATTENDING NOTE Patient was seen and examined by me with the residents this morning. Agree with the above assessment and plan with the following changes as below. The patient is a young gentleman with past medical history of chronic active smoking, was admitted for possible URI with a rhinovirus and COPD exacerbation. The patient had nice improvement throughout his course and this morning was sitting comfortably on the bed having his breakfast. He was able to communicate without getting short of breath. The patient was kept on IV Solu-Medrol initially, which has been tapered down to 40 daily now. Patient has had a significant improvement, but on exertion is still desaturating to upper 80s. The patient was again reevaluated later in the day as the nursing staff stated that he has been getting short of breath. Patient was supposed to undergo a 6 minute walk test and while he was getting his testing done. He felt that he was getting short of breath. Again, patient was reevaluated and at that time, the patient was again lying comfortably on the bed without the nasal cannula saturating around 96. On lung examination. There was no wheezing appreciated. The patient's heart rate as well as blood pressure were within the normal limit. On examination the patient is alert, oriented to time, place and person, in no apparent distress. Lungs are clear to auscultation bilaterally. No expiratory or inspiratory wheezing is appreciated. No rhonchi, no refills. S1 S2 is heard. Abdomen soft, nontender, nondistended. No pedal edema. Assessment and plan Given the patient's chronic active smoking with potential COPD oximetry gold stage III patient has appropriate inhalers with long-acting muscarinic inhaler and long-acting beta agonist inhaler with a rescue inhaler and inhaled corticosteroid. He needs to quit smoking. And I spoke with the respiratory th [facility] this morning and as the patient on minimal exertion was dropping down his sats to 87. He qualifies for home O2. The instructions are given to the nurse, as well as the respiratory therapist. He would need this oxygen therapy for at least 3 months and he needs to be reevaluated by the field hauler for the continuation of home oxygen. He will be given a tapering dose off 40 mg of prednisone. He is clinically stable for discharge. Rest. All other chronic problem and the management as per documentation by the residents MELISSA Dc M.D, DO Jul 11, 2019 19:01 SASKIA LOVELL MD Jul 12, 2019 13:45
[2019-07-11 22:00] VITALS: BP 132/92
[2019-07-12] MEDS ORDERED: IPRATROPIUM 0.5MG/ALBUTEROL 2.5MG INH SOL UD 3ML (DUONEB)(J7620) NEB ONE (02:15)
[2019-07-12] MEDS: LevoFLOXacin 750 MG TABLET PO SCH (05:27)
[2019-07-12 06:00] VITALS: BP 133/91
[2019-07-12 06:08] LABS: HEMATOCRIT 46.7 % (42.0-52.0); HEMOGLOBIN 15.3 g/dl (13.5-17.5); MEAN CORPUSCULAR HEMOGLOBIN 27.2 pg (27.0-33.0); MEAN CORPUSCULAR HGB CONC 32.8 g/dl (32.0-36.5); MEAN CORPUSCULAR VOLUME 82.9 fl (80.0-96.0); PLATELET COUNT, AUTOMATED 168 10^3/uL (150-450); RED BLOOD COUNT 5.63 10^6/uL (4.30-6.10); WHITE BLOOD COUNT 9.7 10^3/uL (4.0-10.0)
[2019-07-12 06:30] LABS: BLOOD UREA NITROGEN 33 MG/DL (7-18); CALCIUM LEVEL 8.9 MG/DL (8.5-10.1); CARBON DIOXIDE LEVEL 34 MEQ/L (21-32); CHLORIDE LEVEL 103 MEQ/L (98-107); CREATININE FOR GFR 1.07 MG/DL (0.70-1.30); GLOMERULAR FILTRATION RATE > 60.0 (>56); GLUCOSE, FASTING 82 MG/DL (70-100); POTASSIUM SERUM 3.6 MEQ/L (3.5-5.1); SODIUM LEVEL 141 MEQ/L (136-145)
[2019-07-12] MEDS: BUDESONIDE 0.5 MG/2 ML INHALATION SUSPENSION INH SCH (07:12)
[2019-07-12 09:02] VITALS: BP 117/69
[2019-07-12] MEDS: CLOPIDOGREL 75 MG TAB PO SCH (09:02)
[2019-07-12] MEDS: hydroCHLOROthiazide 25 MG TAB PO SCH (09:02)
[2019-07-12] MEDS: predniSONE 20 MG TAB PO SCH (09:02)
[2019-07-12] MEDS: POTASSIUM CHLORIDE 10 MEQ SR TABLET PO SCH (09:02)
[2019-07-12] MEDS: LOSARTAN 50 MG TAB PO SCH (09:02)
[2019-07-12] MEDS: APIXABAN 5 MG TAB (ELIQUIS) PO SCH (09:02)
== END 2019-07-12 12:23 | disposition home or self-care (01) | DRG 140 ==
LOC: M ED 05:22 → M ED INP 09:16 → M MSPAV 13:12
PROVIDERS: ADMIT Internal Medicine; ATTEND Internal Medicine
DX: J44.1 Chronic obstructive pulmonary disease with (acute) exacerbation (principal); I69.351 Hemiplegia and hemiparesis following cerebral infarction affecting right dominant side; I10 Essential (primary) hypertension; B97.89 Other viral agents as the cause of diseases classified elsewhere; Z79.899 Other long term (current) drug therapy; Z88.5 Allergy status to narcotic agent; F17.210 Nicotine dependence, cigarettes, uncomplicated; Z79.01 Long term (current) use of anticoagulants; Z86.718 Personal history of other venous thrombosis and embolism

== ENCOUNTER 2019-07-22 09:49 | Emergency (ER) | payer OTHER ==
[~2019-07-22] VITALS: Ht 177.8 cm; Wt 110.6 kg
[~2019-07-22 09:49] MED LIST changes: +LEVA750T7 PO
[2019-07-22 10:35] LABS: HEMOGLOBIN 16.2 g/dl (13.5-17.5); MEAN CORPUSCULAR HEMOGLOBIN 27.5 pg (27.0-33.0); MEAN CORPUSCULAR HGB CONC 33.1 g/dl (32.0-36.5); MEAN CORPUSCULAR VOLUME 83.1 fl (80.0-96.0); PLATELET COUNT, AUTOMATED 193 10^3/uL (150-450); WHITE BLOOD COUNT 13.4 10^3/uL (4.0-10.0)
[2019-07-22 10:47] LABS: INR 1.05; PROTHROMBIN TIME 13.4 SECONDS (11.8-14.0)
[2019-07-22 10:48] LABS: PARTIAL THROMBOPLASTIN TIME 29.3 SECONDS (25.0-38.4)
--- NOTE | 2019-07-22 11:53 | REP ---
BILATERAL LOWER EXTREMITY DUPLEX DOPPLER VENOUS ULTRASOUND: Real-time compression and duplex Doppler interrogation of the bilateral lower extremity deep venous systems is performed. Once again, the bilateral common femoral and superficial femoral veins as well as the right popliteal vein are fully compressible with transducer pressure with no evidence of intraluminal thrombus and good internal spontaneous and phasic flow. There is again, nonocclusive thrombus seen in the left popliteal vein. There is no change since the prior exam. IMPRESSION: Stable nonocclusive chronic thrombus in the left popliteal vein, no change since the prior study of 09/22/2018. No acute deep vein thrombosis bilaterally. Electronically Signed by Washington Blanco MD 07/22/2019 11:30 P
[2019-07-22 12:07] VITALS: BP 129/89
== END 2019-07-22 12:15 | disposition home or self-care (01) ==
LOC: M ED 09:49
DX: I82.432 Acute embolism and thrombosis of left popliteal vein (principal); R23.3 Spontaneous ecchymoses; M79.605 Pain in left leg; M79.604 Pain in right leg; R22.41 Localized swelling, mass and lump, right lower limb; I10 Essential (primary) hypertension; I63.9 Cerebral infarction, unspecified; J44.9 Chronic obstructive pulmonary disease, unspecified; Z88.5 Allergy status to narcotic agent

== ENCOUNTER → 2019-08-19 | Outpatient (CLI) | payer OTHER ==
--- NOTE | 2019-08-19 12:44 | PFTRPT ---
Height: 70.50 Inches Weight: 239.00 Lbs BSA: 2.26 Diagnosis: J44.9 DATE OF STUDY: 08/19/2019 ORDERED BY: Edita Shrestha DO Spirometry: Pre and post bronchodilator study of excellent technical quality. Forced vital capacity reduced. FEV1 out of proportion. Obstructive index is, therefore, reduced. Flow Volume Loop: Expiratory limb of the flow volume loop consistent with very significant flow rate limitation. Very favorable bronchodilator response is identified. Lung Volumes: Total lung capacity normal. Residual volume suggests significant air trapping. Diffusing Capacity: Diffusing capacity severely reduced but does correct for alveolar volume. Hemoglobin: No hemoglobin available for correction. Airway Mechanics: Airway resistance elevated with a concomitant decrease in airway conductance. IMPRESSION: Severe obstructive ventilatory impairment with underlying air trapping. Favorable bronchodilator response. Diffusing capacity impairment, appropriate for alveolar volume. Please correlate clinically. MTDD
== END ==
LOC: M CARPUL 11:50
PROVIDERS: ATTEND Obstetrics & Gynecology
DX: J44.9 Chronic obstructive pulmonary disease, unspecified (principal)

== ENCOUNTER 2019-10-27 22:22 | Emergency (ER) | payer OTHER ==
[~2019-10-27] VITALS: Ht 177.8 cm; Wt 106.8 kg
[2019-10-27] MEDS ORDERED: dexameTHASONE 20 MG/5 ML VIAL (J1100) IV ONE (22:45)
[2019-10-27] MEDS ORDERED: IPRATROPIUM 0.5MG/ALBUTEROL 2.5MG INH SOL UD 3ML (DUONEB)(J7620) NEB ONE (22:45)
[2019-10-27 23:12] LABS: VENOUS BASE EXCESS 3.5 (-2.0-2.0); VENOUS O2 SATURATION 52.7 % (60.0-80.0); VENOUS PARTIAL PRESSURE CO2 57.2 mmHg (38.0-50.0); VENOUS PARTIAL PRESSURE O2 27.1 mmHg (30.0-50.0); VENOUS PH 7.352 UNITS (7.330-7.430); VENOUS STANDARD HCO3 26.2 MEQ/L; VENOUS TOTAL CO2 32.8 MEQ/L (24.0-28.0)
[2019-10-27 23:13] LABS: BASO # 0.1 10^3/uL (0.0-0.2); BASO % 0.5 % (0.0-1.0); EOS # 0.1 10^3/uL (0.0-0.5); EOS % 0.6 % (0.0-3.0); HEMOGLOBIN 16.4 g/dl (13.5-17.5); LYMPH # 1.8 10^3/uL (1.5-5.0); LYMPH % 15.9 % (24.0-44.0); MEAN CORPUSCULAR HEMOGLOBIN 26.1 pg (27.0-33.0); MEAN CORPUSCULAR HGB CONC 31.5 g/dl (32.0-36.5); MEAN CORPUSCULAR VOLUME 82.7 fl (80.0-96.0); MONO % 9.1 % (0.0-5.0); NEUTROPHILS # 8.1 10^3/uL (1.5-8.5); NEUTROPHILS % 73.4 % (36.0-66.0); PLATELET COUNT, AUTOMATED 253 10^3/uL (150-450); RED BLOOD COUNT 6.29 10^6/uL (4.30-6.10); WHITE BLOOD COUNT 11.1 10^3/uL (4.0-10.0)
[2019-10-27 23:31] LABS: BLOOD UREA NITROGEN 22 MG/DL (7-18); CALCIUM LEVEL 9.4 MG/DL (8.5-10.1); CARBON DIOXIDE LEVEL 30 MEQ/L (21-32); CHLORIDE LEVEL 102 MEQ/L (98-107); CREATININE FOR GFR 1.21 MG/DL (0.70-1.30); GLOMERULAR FILTRATION RATE > 60.0 (>56); GLUCOSE, FASTING 88 MG/DL (70-100); POTASSIUM SERUM 3.3 MEQ/L (3.5-5.1); SODIUM LEVEL 140 MEQ/L (136-145)
[2019-10-27] MEDS: IPRATROPIUM 0.5MG/ALBUTEROL 2.5MG INH SOL UD 3ML (DUONEB)(J7620) NEB SCH ×2 (23:35→23:59)
[2019-10-27 23:50] LABS: INFLUENZA A AMPLIFICATION NEGATIVE (NEGATIVE); INFLUENZA B AMPLIFICATION NEGATIVE (NEGATIVE)
[2019-10-28] MEDS ORDERED: PRED20TA PO (00:42)
[2019-10-28 00:54] VITALS: BP 107/60
--- NOTE | 2019-10-28 01:45 | REP ---
Clinical: Dyspnea. Technique: PA and lateral. Comparison: 07/08/2019. Findings: Subtle bibasilar air space disease cannot be excluded and may reflect bronchitis. The no obvious discrete focal consolidation or effusion. No pneumothorax. Mediastinum and cardiac silhouette normal. Skeletal structures intact. Impression: Subtle bibasilar air space disease suggest bronchitis. Electronically Signed by Satish Hernandez MD 10/28/2019 01:36 A
== END 2019-10-28 00:56 | disposition home or self-care (01) ==
LOC: M ED 22:22
DX: J44.1 Chronic obstructive pulmonary disease with (acute) exacerbation (principal); I10 Essential (primary) hypertension; E11.9 Type 2 diabetes mellitus without complications; Z86.73 Personal history of transient ischemic attack (TIA), and cerebral infarction without residual deficits; Z88.5 Allergy status to narcotic agent; F17.218 Nicotine dependence, cigarettes, with other nicotine-induced disorders
CPT/HCPCS: 71046; 80048; 82803; 85025; 87040; 87502; 94640; 96374; 99284; J1100

== ENCOUNTER 2019-11-07 11:09 | Emergency (ER) | payer OTHER ==
[~2019-11-07] VITALS: Ht 177.8 cm; Wt 105.5 kg
[2019-11-07] MEDS ORDERED: IPRATROPIUM 0.5MG/ALBUTEROL 2.5MG INH SOL UD 3ML (DUONEB)(J7620) NEB ONE (12:00)
[2019-11-07 12:19] LABS: BASO % 0.3 % (0.0-1.0); EOS # 0.1 10^3/uL (0.0-0.5); EOS % 0.7 % (0.0-3.0); HEMATOCRIT 53.1 % (42.0-52.0); HEMOGLOBIN 16.7 g/dl (13.5-17.5); LYMPH # 2.2 10^3/uL (1.5-5.0); LYMPH % 17.4 % (24.0-44.0); MEAN CORPUSCULAR HEMOGLOBIN 26.3 pg (27.0-33.0); MEAN CORPUSCULAR HGB CONC 31.5 g/dl (32.0-36.5); MEAN CORPUSCULAR VOLUME 83.8 fl (80.0-96.0); MONO # 1.3 10^3/uL (0.0-0.8); MONO % 10.4 % (0.0-5.0); NEUTROPHILS # 8.8 10^3/uL (1.5-8.5); NEUTROPHILS % 69.5 % (36.0-66.0); PLATELET COUNT, AUTOMATED 230 10^3/uL (150-450); RED BLOOD COUNT 6.34 10^6/uL (4.30-6.10); WHITE BLOOD COUNT 12.7 10^3/uL (4.0-10.0)
[2019-11-07 12:50] LABS: CALCIUM LEVEL 8.9 MG/DL (8.5-10.1); CREATININE FOR GFR 1.32 MG/DL (0.70-1.30); GLOMERULAR FILTRATION RATE 59.5 (>56); POTASSIUM SERUM 3.8 MEQ/L (3.5-5.1)
--- NOTE | 2019-11-07 13:40 | REP ---
Chest x-ray: Two views. History: Dyspnea and cough. Comparison chest x-ray: October 27, 2019. Findings: The lungs are symmetrically aerated and free of infiltrate. Pleural angles are sharp. There are degenerative changes in the thoracic spine. Heart size is normal. Pulmonary vasculature is not increased. Impression: No active disease. Electronically Signed by Ghassan Torres MD 11/07/2019 01:32 P
[2019-11-07] MEDS ORDERED: ZITHTAB PO (13:55)
[2019-11-07] MEDS ORDERED: MEDR4PAK PO (13:55)
[2019-11-07 14:14] VITALS: BP 115/74
--- NOTE | 2019-11-08 20:16 | ECGEPIP ---
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
== END 2019-11-07 14:15 | disposition home or self-care (01) ==
LOC: M ED 11:09
DX: J44.1 Chronic obstructive pulmonary disease with (acute) exacerbation (principal); R94.31 Abnormal electrocardiogram [ECG] [EKG]; Z86.73 Personal history of transient ischemic attack (TIA), and cerebral infarction without residual deficits; F17.210 Nicotine dependence, cigarettes, uncomplicated; Z88.5 Allergy status to narcotic agent; Z79.51 Long term (current) use of inhaled steroids; Z79.899 Other long term (current) drug therapy

== ENCOUNTER → 2019-11-14 | Outpatient (CLI) | payer OTHER ==
--- NOTE | 2019-11-15 04:49 | REP ---
Clinical: Lung screening. History smoking. Comparison: 10/24/2018 Technique: Axial low-dose noncontrast images from the thoracic inlet to the upper abdomen using lung screening technique. Findings: The lung hare are well-aerated. Stable calcified granulomata are again noted and unchanged. There is a new 8 mm noncalcified nodule in the deep lateral left sulcus. Impression: 8 mm new noncalcified density in the lateral left sulcus. Recommendations include CT evaluation in 6-12 months. Electronically Signed by Satish Hernandez MD 11/15/2019 04:40 A
== END ==
LOC: M RAD 09:34
PROVIDERS: ATTEND Student in an Organized Health Care Education/Training Program
DX: F17.218 Nicotine dependence, cigarettes, with other nicotine-induced disorders (principal); Z12.2 Encounter for screening for malignant neoplasm of respiratory organs

== ENCOUNTER 2019-12-05 12:20 | Observation (INO) | payer OTHER ==
[~2019-12-05] VITALS: Ht 177.8 cm; Wt 104.4 kg
[2019-12-05] MEDS ORDERED: ANOR1AER INH (12:35)
[2019-12-05 13:19] LABS: HEMOGLOBIN 15.5 g/dl (13.5-17.5); MEAN CORPUSCULAR HEMOGLOBIN 26.3 pg (27.0-33.0); MEAN CORPUSCULAR HGB CONC 32.3 g/dl (32.0-36.5); MEAN CORPUSCULAR VOLUME 81.5 fl (80.0-96.0); PLATELET COUNT, AUTOMATED 199 10^3/uL (150-450); RED BLOOD COUNT 5.89 10^6/uL (4.30-6.10); WHITE BLOOD COUNT 7.1 10^3/uL (4.0-10.0)
[2019-12-05 13:40] LABS: BLOOD UREA NITROGEN 21 MG/DL (7-18); CALCIUM LEVEL 8.8 MG/DL (8.5-10.1); CARBON DIOXIDE LEVEL 27 MEQ/L (21-32); CHLORIDE LEVEL 107 MEQ/L (98-107); CREATININE FOR GFR 0.94 MG/DL (0.70-1.30); GLOMERULAR FILTRATION RATE > 60.0 (>56); GLUCOSE, FASTING 120 MG/DL (70-100); POTASSIUM SERUM 3.7 MEQ/L (3.5-5.1); SODIUM LEVEL 139 MEQ/L (136-145)
--- NOTE | 2019-12-05 13:40 | REP ---
Clinical: Vertigo . Comparison: 07/07/2017 . Findings: Periventricular leukomalacia and scattered lacunar infarcts are similar to prior examination. The ventricles are symmetric. Blanco-white differentiation is maintained. No acute intracranial hemorrhage, mass/mass effect, pathology or trauma/injury. No evidence for acute infarction. No extra-axial fluid collection. Calvarium is intact. Paranasal sinuses and mastoid air cells are clear. Impression: 1. Microvascular ischemic changes with periventricular leukomalacia and scattered lacunar infarcts primarily noted in the left basal ganglia similar to prior examination. 2. No acute intracranial pathology appreciated. Electronically Signed by Satish Hernandez MD 12/05/2019 01:32 P
[2019-12-05] MEDS ORDERED: ONDANSETRON 4MG/2ML VIAL (J2405) IV ONE (16:15)
[2019-12-05] MEDS ORDERED: MECLIZINE 25 MG TABLET PO ONE (16:15)
[2019-12-05] MEDS ORDERED: LOSA50TA88 PO (16:44)
--- NOTE | 2019-12-05 17:00 | HPEPDOC ---
General Date of Admission 12/05/19 Date of Service: Dec 05, 2019 Chief Complaint The patient is a 59-year-old male admitted with a reason for visit of DIZZY. History of Present Illness 59 year old male presents with vertigo. States "I woke up today morning, opened my eyes and the room was spinning". Rested for a few minutes and moved onto his back with improvement in symptoms. However on sitting up symptoms recurred with episode of vomiting. States symptoms persisted, called EMS and was brought to the ED without incident. CT head negative, tx with meclizine and zofran. Still with difficulty ambulating, patient lives alone and unsafe for discharge. Patient denies headaches, slurred speech, focal weakness. Home Medications Scheduled Apixaban (Eliquis) 5 Mg Tablet, 5 MG PO BID, (Reported) Clopidogrel Bisulfate (Clopidogrel) 75 Mg Tab, 75 MG PO DAILY, (Reported) Fluticasone Furoate (Arnuity Ellipta) 200 Mcg/Act Inh, 1 PUFF INH DAILY, (Reported) Hydrochlorothiazide (Hydrochlorothiazide) 50 Mg Tab, 50 MG PO DAILY, (Reported) Losartan Potassium (Losartan Potassium) 50 Mg Tablet, 100 MG PO DAILY, (Reporte d) Potassium Chloride (Potassium Chloride) 10 Meq Cap, 10 MEQ PO DAILY, (Reported) Umeclidinium Brm/Vilanterol Tr (Anoro Ellipta 62.5-25 Mcg INH) 1 Each Blst.w.dev, 1 PUFF INH DAILY, (Reported) Scheduled PRN Albuterol Sulfate (Ventolin Hfa) 108 Mcg/Act Aer, 2 PUFF INH Q4H PRN for SHORTNESS OF BREATH, (Reported) Allergies Coded Allergies: codeine (Verified Allergy, Unknown, NAUSEA, 07/08/19) Past Medical History Medical History chronic obstructive pulmonary disease (COPD), hypertension, CVA, history of deep venous thrombosis (DVT), current tobacco user Surgical History as above Family History Significant Family History: No pertinent family hx Social History * Smoker: current smoker Alcohol: Denies Drugs: denies A-FIB/CHADSVASC A-FIB History Current/History of A-Fib/PAF?: No Review of Systems Constitutional: Reports: Weakness, Fatigue Eyes: Denies: Pain, Vision change ENT: Denies: Head Aches, Ear Pain, Dysphagia Skin: Denies: Rash, Lesions, Breakdown Pulmonary: Denies: Dyspnea, Cough Cardiovascular: Denies: Chest Pain, Palpitations, Orthopnea, Paroxysmal Noc. Dyspnea, Lt Headedness Gastrointestinal: Denies: Nausea, Vomiting, Abdominal Pain, Diarrhea Genitourinary: Denies: Dysuria, Frequency, Incontinence, Retention Hematologic: Denies: Bruising, Bleeding Excessively Musculoskeletal: Denies: Neck Pain, Back Pain, Joint Pain, Muscle Pain, Spasms Neurological: Reports: Other Symptoms (dizziness); Denies: Weakness, Numbness, Change in speech, Confusion Psych: Reports: Mood Normal; Denies: Depression, Memory Issues Physical Examination General Exam: Positive: Alert, No Acute Distress Eye Exam: Positive: PERRLA, Conjunctiva & lids normal, EOMI; Negative: Sclera icteric ENT Exam: Positive: Atraumatic, Mucous membr. moist/pink, Pharynx Normal Neck Exam: Positive: Supple; Negative: JVD, thyromegaly Chest Exam: Positive: Clear to auscultation, Normal air movement, Diminished Heart Exam: Positive: Rate Normal, Regular Rhythm, Normal S1, Normal S2; Negative: Murmurs, Rubs Telemetry: Positive: No significant arrhythmia Abdomen Exam: Positive: Normal bowel sounds, Soft; Negative: Tenderness, Hepatospenomegaly Extremity Exam: Positive: Normal pulses; Negative: Clubbing, Cyanosis, Edema Skin Exam: Positive: Nl turgor and temperature; Negative: Breakdown, Lesion Neuro Exam: Positive: Normal Gait, Normal Speech, Cranial Nerves 3-12 NL, Reflexes 2+, Other (unable to assess gait. ) Psych Exam: Positive: Mental status NL, Mood NL, Oriented x 3 Vital Signs Vital Signs Date Time Temp Pulse Resp B/P (MAP) Pulse Ox O2 Delivery O2 Flow Rate FiO2 12/05/19 14:01 61 142/80 (100) 95 12/05/19 12:21 97.6 18 Room Air Laboratory Data Labs 24H Laboratory Tests 2 12/05/19 13:08: Nucleated Red Blood Cells % (auto) 0.0, Anion Gap 5L, Glomerular Filtration Rate > 60.0, Calcium Level 8.8, Magnesium Level 2.0 CBC/BMP Laboratory Tests 12/05/19 13:08 Assessment/Plan 1. vertigo - CT head negative. - check MRI brain. - continue meclizine, zofran prn. 2. COPD - continue inhalers - stable. 3. HTN - continue outpatient medications. 4. DVT - continue eliquis. Plan / VTE VTE Prophylaxis Ordered?: Yes VIDA FALL MD Dec 05, 2019 17:00
[2019-12-05] MEDS ORDERED: ONDANSETRON 4MG/2ML VIAL (J2405) IV PRN (17:15)
[2019-12-05] MEDS ORDERED: ALBUTEROL SULFATE 2.5 MG/0.5 ML INH NEB SOLN NEB PRN (17:15)
[2019-12-05] MEDS: NS 1,000 ML IV SCH (17:55)
[2019-12-05 18:00] VITALS: BP 149/97
[2019-12-05 20:00] VITALS: BP 130/84
--- NOTE | 2019-12-05 20:25 | REPVR ---
PROCEDURE INFORMATION: Exam: MR Head Without Contrast Exam date and time: 12/05/2019 5:07 PM Age: 59 years old Clinical indication: Dizziness; Additional info: Vertigo TECHNIQUE: Imaging protocol: MR of the head without contrast. COMPARISON: CT Head without contrast 12/05/2019 1:19 PM FINDINGS: Major vascular flow voids at the skull base are preserved. No extra-axial fluid collection. No hydrocephalus. Small chronic right frontal, left parietal and right cerebellar infarcts. There are chronic lacunar infarcts involving the basal ganglia and crystal. No midline shift or intracranial mass effect. No diffusion restriction. Nonspecific white matter gliosis, probable chronic microvascular ischemia. Minimal paranasal sinus disease. No mastoid effusion. IMPRESSION: No acute intracranial abnormality. Electronically signed by: Marc Ny On 12/05/2019 20:25:14 PM
[2019-12-05] MEDS: MECLIZINE 25 MG TABLET PO SCH (21:44)
[2019-12-05] MEDS: APIXABAN 5 MG TAB (ELIQUIS) PO SCH (21:45)
[2019-12-06] MEDS: NS 1,000 ML IV SCH (04:25)
[2019-12-06 05:54] VITALS: BP 112/70
[2019-12-06 08:36] VITALS: BP 126/82
[2019-12-06] MEDS: APIXABAN 5 MG TAB (ELIQUIS) PO SCH (08:36)
[2019-12-06 08:38] LABS: ALT/SGPT 19 U/L (12-78); BILIRUBIN,TOTAL 0.2 MG/DL (0.2-1.0); BLOOD UREA NITROGEN 17 MG/DL (7-18); CALCIUM LEVEL 8.5 MG/DL (8.5-10.1); CARBON DIOXIDE LEVEL 30 MEQ/L (21-32); CHLORIDE LEVEL 109 MEQ/L (98-107); CREATININE FOR GFR 1.01 MG/DL (0.70-1.30); GLOMERULAR FILTRATION RATE > 60.0 (>56); GLUCOSE, FASTING 93 MG/DL (70-100); POTASSIUM SERUM 3.3 MEQ/L (3.5-5.1); SODIUM LEVEL 143 MEQ/L (136-145); TOTAL PROTEIN 5.8 GM/DL (6.4-8.2)
[2019-12-06] MEDS ORDERED: CLOPIDOGREL 75 MG TAB PO SCH (09:00)
[2019-12-06] MEDS ORDERED: hydroCHLOROthiazide 25 MG TAB PO SCH (09:00)
[2019-12-06] MEDS ORDERED: POTASSIUM CHLORIDE 10 MEQ SR TABLET PO SCH (09:00)
[2019-12-06] MEDS ORDERED: LOSARTAN 50 MG TAB PO SCH (09:00)
[2019-12-06] MEDS ORDERED: NS 1,000 ML IV SCH (09:45)
--- NOTE | 2019-12-06 09:46 | IPNPDOC ---
Subjective Date Seen The patient was seen on 12/06/19. Subjective Chief Complaint/HPI seen and examined at bedside, feeling better today, was able to ambulate to bathroom with minimal symptoms, still feels unsteady on his feet. General: Reports: Normal Appetite; Denies: Chills, Night Sweats, Fatigue, Malaise Constitutional: Denies: Chills, Fever, Night Sweats Eyes: Denies: Pain, Vision change ENT: Denies: Head Aches, Ear Pain, Dysphagia Skin: Denies: Rash, Lesions, Breakdown Pulmonary: Denies: Dyspnea, Cough Cardiovascular: Denies: Chest Pain, Palpitations, Orthopnea, Paroxysmal Noc. Dyspnea, Lt Headedness Gastrointestinal: Denies: Nausea, Vomiting, Abdominal Pain, Diarrhea, Constipation Genitourinary: Denies: Dysuria, Frequency, Incontinence, Retention Hematologic: Denies: Bruising, Bleeding Excessively Musculoskeletal: Denies: Neck Pain, Back Pain, Joint Pain, Muscle Pain, Spasms Neurological: Denies: Weakness, Numbness, Change in speech, Confusion Psych: Reports: Mood Normal; Denies: Depression, Memory Issues Objective Physical Examination General Exam: Positive: Alert, No Acute Distress Eye Exam: Positive: PERRLA, Conjunctiva & lids normal, EOMI; Negative: Sclera icteric ENT Exam: Positive: Atraumatic, Mucous membr. moist/pink, Pharynx Normal Neck Exam: Positive: Supple; Negative: JVD, thyromegaly Chest Exam: Positive: Clear to auscultation, Normal air movement, Diminished Heart Exam: Positive: Rate Normal, Regular Rhythm, Normal S1, Normal S2; Negative: Murmurs, Rubs Telemetry: Positive: No significant arrhythmia Abdomen Exam: Positive: Normal bowel sounds, Soft; Negative: Tenderness, Hepatospenomegaly Male Exam: Positive: Normal Genital Exam Extremity Exam: Positive: Normal pulses; Negative: Clubbing, Cyanosis, Edema Skin Exam: Positive: Nl turgor and temperature; Negative: Breakdown, Lesion Neuro Exam: Positive: Normal Gait, Normal Speech, Cranial Nerves 3-12 NL, Reflexes 2+, Other (unstable gait) Psych Exam: Positive: Mental status NL, Mood NL, Oriented x 3 Assessment /Plan Assessment 1. vertigo - CT/MRI brain negative. - continue meclizine, zofran prn. - notes some improvement today, able to ambulate with minimal symptoms, still feels unsteady on his feet. - PT/OT today. 2. COPD - continue inhalers - stable. 3. HTN - continue outpatient medications. 4. DVT - continue eliquis. Plan/VTE VTE Prophylaxis Ordered?: Yes VS, I&O, 24H, Fishbone Vital Signs/I&O Vital Signs Date Time Temp Pulse Resp B/P (MAP) Pulse Ox O2 Delivery O2 Flow Rate FiO2 12/06/19 08:36 126/82 12/06/19 05:54 97.6 84 18 96 Room Air I&O- Last 24 Hours up to 6 AM 12/06/19 06:00 Intake Total 2434 ml Output Total 1925 ml Balance 509 ml Laboratory Data 24H LABS Laboratory Tests 2 12/05/19 13:08: Nucleated Red Blood Cells % (auto) 0.0, Anion Gap 5L, Glomerular Filtration Rate > 60.0, Calcium Level 8.8, Magnesium Level 2.0 12/06/19 07:33: Anion Gap 4L, Glomerular Filtration Rate > 60.0, Calcium Level 8.5, Total Bilirubin 0.2, Aspartate Amino Transf (AST/SGOT) 11, Alanine Aminotransferase (ALT/SGPT) 19, Alkaline Phosphatase 74, Total Protein 5.8L, Albumin 3.0L, Albumin/Globulin Ratio 1.07 CBC/BMP Laboratory Tests 12/05/19 13:08 12/06/19 07:33 VIDA FALL MD Dec 06, 2019 09:46
[2019-12-06] MEDS ORDERED: ONDANSETRON 4 MG ORAL DISINTEGRATING TAB (Q0162 PER 1MG) PO PRN (10:00)
[2019-12-06] MEDS: KCL 10MEQ/100ML SWI (KRUN) 10 MEQ in IV 1 EA IV SCH ×2 (11:00→12:11)
[2019-12-06] MEDS ORDERED: POTASSIUM CHLORIDE 10 MEQ SR TABLET PO ONE (12:30)
[2019-12-06] MEDS: MECLIZINE 25 MG TABLET PO SCH (13:12)
[2019-12-06] MEDS ORDERED: MECL-86 PO (15:36)
--- NOTE | 2019-12-06 18:11 | DS.PDOC ---
Discharge Summary General Date of Admission Dec 05, 2019 at 12:21 Date of Discharge 12/06/19 Discharge Summary PROCEDURES PERFORMED DURING STAY: [None]. ADMITTING DIAGNOSES: 1. vertigo DISCHARGE DIAGNOSES: 1. vertigo COMPLICATIONS/CHIEF COMPLAINT: Vertigo. HISTORY OF PRESENT ILLNESS: Please refer to HP for detailed HPI. HOSPITAL COURSE: Patient was admitted to the hospital and treated for the follow ing conditions: 1. vertigo - started on meclizine, zofran prn. - CT/MRI brain negative. - patient seen by PT, able to ambulate in room/hallway with minimal to no symptoms. - deemed stable for discharge with outpatient follow up with PT for vestibular rehab. - will be given Rx for meclizine prn, advised to avoid taking prior to PT. - patient verbalized understanding. DISCHARGE MEDICATIONS: Please see below. ALLERGIES: Please see below. PHYSICAL EXAMINATION ON DISCHARGE: VITAL SIGNS: Please see below. GENERAL: AAO x 3, NAD. HEENT: NCAT, anicteric sclera, PERRLA/EOMI NECK: supple, no JVD, no thyromegaly CARDIOVASCULAR EXAMINATION: NS1S2, regular, no murmurs/rubs RESPIRATORY EXAMINATION: CTA b/l, no wheezing, rales, rhonchi. ABDOMINAL EXAMINATION: NT/ND, positive bowel sounds, no masses EXTREMITIES: no cyanosis, clubbing, edema SKIN: warm, no rashes, NEUROLOGICAL EXAMINATION: AAO x 3, no motor/sensory deficits, PSYCHIATRIC EXAMINATION: calm, cooperative, normal affectis. LABORATORY DATA: Please see below. IMAGING: CT head: Impression: 1. Microvascular ischemic changes with periventricular leukomalacia and scattered lacunar infarcts primarily noted in the left basal ganglia similar to prior examination. 2. No acute intracranial pathology appreciated. MRI brain: FINDINGS: Major vascular flow voids at the skull base are preserved. No extra-axial fluid collection. No hydrocephalus. Small chronic right frontal, left parietal and right cerebellar infarcts. There are chronic lacunar infarcts involving the basal ganglia and crystal. No midline shift or intracranial mass effect. No diffusion restriction. Nonspecific white matter gliosis, probable chronic microvascular ischemia. Minimal paranasal sinus disease. No mastoid effusion. IMPRESSION: No acute intracranial abnormality. PROGNOSIS: good ACTIVITY: [As tolerated]. DIET: low fat/low cholesterol DISCHARGE PLAN: stable for d/c home DISPOSITION: home DISCHARGE INSTRUCTIONS: 1. please follow up with PCP on discharge. 2. outpatient referral for PT for vestibular PT. ITEMS TO FOLLOWUP ON ON OUTPATIENT: 1. none DISCHARGE CONDITION: [Stable]. TIME SPENT ON DISCHARGE: Greater than [30] minutes. Vital Signs/I&Os Vital Signs Date Time Temp Pulse Resp B/P (MAP) Pulse Ox O2 Delivery O2 Flow Rate FiO2 12/06/19 08:36 126/82 12/06/19 05:54 97.6 84 18 96 Room Air I&O- Last 24 Hours up to 6 AM 12/06/19 06:00 Intake Total 2434 ml Output Total 1925 ml Balance 509 ml Laboratory Data Labs 24H Laboratory Tests 2 12/06/19 07:33: Anion Gap 4L, Glomerular Filtration Rate > 60.0, Calcium Level 8.5, Total Bilirubin 0.2, Aspartate Amino Transf (AST/SGOT) 11, Alanine Aminotransferase (ALT/SGPT) 19, Alkaline Phosphatase 74, Total Protein 5.8L, Albumin 3.0L, Albumin/Globulin Ratio 1.07 CBC/BMP Laboratory Tests 12/06/19 07:33 Discharge Medications Scheduled Apixaban (Eliquis) 5 Mg Tablet, 5 MG PO BID, (Reported) Clopidogrel Bisulfate (Clopidogrel) 75 Mg Tab, 75 MG PO DAILY, (Reported) Fluticasone Furoate (Arnuity Ellipta) 200 Mcg/Act Inh, 1 PUFF INH DAILY, (Reported) Hydrochlorothiazide (Hydrochlorothiazide) 50 Mg Tab, 50 MG PO DAILY, (Reported) Losartan Potassium (Losartan Potassium) 50 Mg Tablet, 100 MG PO DAILY, (Reported) Potassium Chloride (Potassium Chloride) 10 Meq Cap, 10 MEQ PO DAILY, (Reported) Umeclidinium Brm/Vilanterol Tr (Anoro Ellipta 62.5-25 Mcg INH) 1 Each Blst.w.dev, 1 PUFF INH DAILY, (Reported) Scheduled PRN Albuterol Sulfate (Ventolin Hfa) 108 Mcg/Act Aer, 2 PUFF INH Q4H PRN for SHORTNESS OF BREATH, (Reported) Meclizine HCl (Meclizine HCl) 25 Mg Tablet, 25 MG PO BIDP PRN for VERTIGO/DIZZINESS Allergies Coded Allergies: codeine (Verified Allergy, Unknown, NAUSEA, 07/08/19) VIDA FALL MD Dec 06, 2019 18:11
== END 2019-12-06 16:19 | disposition home or self-care (01) ==
LOC: M ED 12:20 → M ED INP 12:21 → ENRESERV 17:16 → M MS5PR 17:57
PROVIDERS: ADMIT Internal Medicine; ATTEND Internal Medicine
DX: R42 Dizziness and giddiness (principal); R26.81 Unsteadiness on feet; I10 Essential (primary) hypertension; J44.9 Chronic obstructive pulmonary disease, unspecified; Z86.2 Personal history of diseases of the blood and blood-forming organs and certain disorders involving the immune mechanism; Z86.73 Personal history of transient ischemic attack (TIA), and cerebral infarction without residual deficits; Z79.899 Other long term (current) drug therapy; Z79.01 Long term (current) use of anticoagulants; Z79.02 Long term (current) use of antithrombotics/antiplatelets; Z88.5 Allergy status to narcotic agent; F17.200 Nicotine dependence, unspecified, uncomplicated
CPT/HCPCS: 36415; 70450; 70551; 80048; 80053; 83735; 85027; 96361; 96374; 96375; 96376; 97112; 97161; 99285; J2405

== ENCOUNTER 2020-03-15 05:56 | Inpatient (IN) | payer OTHER ==
[~2020-03-15] VITALS: Ht 177.8 cm; Wt 104.0 kg
[~2020-03-15 05:56] MED LIST changes: +ANOR1AER INH; +MECL-86 PO
[2020-03-15] MEDS ORDERED: ALBU1.25 NEB (06:11)
[2020-03-15] MEDS ORDERED: COMBIVENT RESPIMAT 100-20MCG INHALER 4GM INH STA ×2 (07:06→10:18)
[2020-03-15] MEDS ORDERED: methylPREDNISolone INJ 125 MG/2 ML VIAL (J2930) IV ONE (07:15)
[2020-03-15 07:25] LABS: BASO # 0.1 10^3/uL (0.0-0.2); BASO % 0.5 % (0.0-1.0); EOS # 0.2 10^3/uL (0.0-0.5); EOS % 2.1 % (0.0-3.0); HEMATOCRIT 53.8 % (42.0-52.0); HEMOGLOBIN 17.4 g/dl (13.5-17.5); LYMPH # 0.9 10^3/uL (1.5-5.0); LYMPH % 9.3 % (24.0-44.0); MEAN CORPUSCULAR HEMOGLOBIN 26.8 pg (27.0-33.0); MEAN CORPUSCULAR HGB CONC 32.3 g/dl (32.0-36.5); MEAN CORPUSCULAR VOLUME 82.9 fl (80.0-96.0); MONO % 9.6 % (0.0-5.0); NEUTROPHILS # 7.8 10^3/uL (1.5-8.5); NEUTROPHILS % 78.3 % (36.0-66.0); PLATELET COUNT, AUTOMATED 247 10^3/uL (150-450); RED BLOOD COUNT 6.49 10^6/uL (4.30-6.10)
[2020-03-15] MEDS ORDERED: APIXABAN 5 MG TAB (ELIQUIS) PO ONE (07:30)
[2020-03-15 07:41] LABS: ABG HCO3 25.4 MEQ/L (22.0-26.0); ABG O2 SATURATION 99.1 % (95.0-99.0); ABG PARTIAL PRESSURE CO2 36.3 mmHg (35.0-45.0); ABG PARTIAL PRESSURE O2 141.3 mmHg (75.0-100.0); ABG STANDARD HCO3 26.3 MEQ/L (22.0-26.0); ABG TOTAL CO2 26.5 MEQ/L (22.0-29.0); ABG pH (ARTERIAL) 7.463 UNITS (7.350-7.450)
[2020-03-15] MEDS ORDERED: ISOVUE-370 76% 100ML VIAL As Ordered ONE (07:42)
--- NOTE | 2020-03-15 08:22 | REPVR ---
PROCEDURE INFORMATION: Exam: CT Angiography Chest With Contrast Exam date and time: 03/15/2020 7:45 AM Age: 59 years old Clinical indication: Shortness of breath; Additional info: SOB, ran out of eliquis, known dvt TECHNIQUE: Imaging protocol: Computed tomographic angiography of the chest with intravenous contrast. 3D rendering: MIP and/or 3D reconstructed images were created by the technologist. Radiation optimization: All CT scans at this facility use at least one of these dose optimization techniques: automated exposure control; mA and/or kV adjustment per patient size (includes targeted exams where dose is matched to clinical indication); or iterative reconstruction. Contrast material: ISOVUE 370; Contrast volume: 75 ml; Contrast route: IV; COMPARISON: CT ANGIO CHEST 10/24/2018 5:32 PM FINDINGS: Pulmonary arteries: The pulmonary arteries are adequately opacified. No evidence of pulmonary embolism in the main, central, lobar or segmental pulmonary arteries. Aorta: Unremarkable. No aortic aneurysm. No aortic dissection. Lungs: No acute infiltrate or consolidation is seen. Stable calcified granuloma in the left lower lobe. Stable calcified granuloma in the right lower lobe. Pleural space: No pneumothorax. No pleural effusion. Heart: No cardiomegaly. No pericardial effusion. Lymph nodes: No enlarged lymph nodes. Bones/joints: The thoracic spine demonstrates moderate degenerative changes at multiple levels. Soft tissues: Unremarkable. IMPRESSION: 1. The pulmonary arteries are adequately opacified. No evidence of pulmonary embolism in the main, central, lobar or segmental pulmonary arteries. 2. No acute infiltrate or consolidation is seen. Electronically signed by: Oswaldo Wills On 03/15/2020 08:22:22 AM
[2020-03-15] MEDS ORDERED: CLOPIDOGREL 75 MG TAB PO ONE (08:30)
[2020-03-15] MEDS ORDERED: ALB2.5NEB INH (08:49)
[2020-03-15] MEDS ORDERED: ACET500T15 PO (08:49)
[2020-03-15 08:55] VITALS: O2SAT 93
[2020-03-15 09:10] LABS: ALBUMIN 3.4 GM/DL (3.2-5.2); ALT/SGPT 23 U/L (12-78); BILIRUBIN,DIRECT 0.2 MG/DL (0.0-0.2); BILIRUBIN,TOTAL 0.9 MG/DL (0.2-1.0); CPK CREATINE PHOSPHOKINASE 103 U/L (39-308); MB/CK RELATIVE INDEX 2.91 (< OR =4); NT-PRO BNP 188 PG/ML (<125); THYROXINE (T4) 11.5 UG/DL (4.5-12.0); TOTAL PROTEIN 7.4 GM/DL (6.4-8.2); TROPONIN I < 0.02 NG/ML (< 0.10)
--- NOTE | 2020-03-15 09:36 | REP ---
CHEST, SINGLE VIEW: Single view of the chest is performed and compared to prior study of 11/07/2019. Calcified granuloma seen in the left cardiophrenic angle. There is mild bibasilar interstitial prominence, unchanged. No acute infiltrate is seen. Heart is normal in size. There are mild degenerative changes of the spine. IMPRESSION: No active pulmonary disease. Electronically Signed by Washington Blanco MD 03/15/2020 10:24 A
--- NOTE | 2020-03-15 13:44 | HPEPDOC ---
[facility] Medical History & Physical Date of Admission March 15, 2020 Date of Service: March 15, 2020 Attending Physician: EMY CULVER MD History and Physical CHIEF COMPLAINT: Shortness of breath and cough HISTORY OF PRESENT ILLNESS: 59-year-old male with past medical history of COPD, DVT and hypertension, presents from home with worsening shortness of breath and cough for the past few days. Symptoms started on with worsening shortness of breath and cough, have been progressively worsening since then, started developing increased sputum production today, which is why came to the hospital. He reports multiple exacerbations of COPD the past, believes same things happening right now. He has no additional complaints, denies any fever, chest pain, nausea, vomiting, diarrhea or constipation. He denies any recent travel or exposure to COVID-19. Of note, he does report running out of his antihypertensive medications 2-3 days ago. 10 point review of system is negative except for above PAST MEDICAL HISTORY: 1. COPD. 2. DVT. 3. Hypertension. PAST SURGICAL HISTORY: 1. None. SOCIAL HISTORY: Current smoker, smokes greater than one pack per day in the past, currently smokes several cigarettes per day. Denies alcohol use Denies drug use FAMILY HISTORY: Father with lung cancer ALLERGIES: Please see below. HOME MEDICATIONS: Please see below. PHYSICAL EXAMINATION: VITAL SIGNS: Please see below. GENERAL: No distress HEENT: Normocephalic, atraumatic, moist mucous membranes NECK: Supple CARDIOVASCULAR EXAMINATION: S1, S2, no murmurs RESPIRATORY EXAMINATION: Poor air movement, slight wheezing ABDOMINAL EXAMINATION: Soft, nontender, nondistended, positive bowel sounds EXTREMITIES: Range of motion intact SKIN: No rash NEUROLOGICAL EXAMINATION: Alert and oriented 3, no focal deficits PSYCHIATRIC EXAMINATION: Calm and cooperative LABORATORY DATA: See below. IMAGING: CTA negative for PE or acute pulmonary pathology MICROBIOLOGY: Please see below. ASSESSMENT: 59-year-old male with multiple medical comorbidities, is being admitted for COPD exacerbation. PLAN: 1. COPD exacerbation. Possibly secondary to running out of antihypertensive medication, prednisone 50 mg daily, nebs as needed, supplemental oxygen as needed to maintain O2 sats between 80-92%. 2. DVT. Continue Eliquis 3. Hypertension. Continue losartan and hydrochlorothiazide 4. CVA. Continue Plavix DVT prophylaxis: On Eliquis GI prophylaxis: Not needed Vital Signs Vital Signs Date Time Temp Pulse Resp B/P (MAP) Pulse Ox O2 Delivery O2 Flow Rate FiO2 03/15/20 12:46 104 22 127/80 (96) 93 03/15/20 11:00 Room Air 03/15/20 05:58 97.3 Laboratory Data Labs 24H Laboratory Tests 2 03/15/20 06:46: Immature Granulocyte % (Auto) 0.2, Neutrophils (%) (Auto) 78.3H, Lymphocytes (%) (Auto) 9.3L, Monocytes (%) (Auto) 9.6H, Eosinophils (%) (Auto) 2.1, Basophils (%) (Auto) 0.5, Neutrophils # (Auto) 7.8, Lymphocytes # (Auto) 0.9L, Monocytes # (Auto) 1.0H, Eosinophils # (Auto) 0.2, Basophils # (Auto) 0.1, Nucleated Red Blood Cells % (auto) 0.0, Lactic Acid Level 1.2 03/15/20 07:31: Blood Gas Bicarbonate Standard 26.3H, Arterial Blood pH 7.463H, Arterial Blood Partial Pressure CO2 36.3, Arterial Blood Partial Pressure O2 141.3H, Arterial Blood Total CO2 26.5, Arterial Blood HCO3 25.4, Arterial Blood Base Excess 2.0, Arterial Blood Oxygen Saturation 99.1H 03/15/20 07:35: POC Glucose (Misc Panel) 89, POC Sodium (Misc Panel) 140, POC Potassium (Misc Panel) 5.7H, POC Chloride (Misc Panel) 102, POC Total CO2 (Misc Panel) 30.0H, PO C Blood Urea Nitrogen (Misc Panel 27H, POC Ionized Calcium (Misc Panel) 4.2L, POC Creatinine (Misc Panel) 1.1, POC Hematocrit (Misc Panel) 55.0H 03/15/20 07:43: POC Glucose (Misc Panel) 94, POC Sodium (Misc Panel) 143, POC Potassium (Misc Panel) 3.4L, POC Chloride (Misc Panel) 100, POC Total CO2 (Misc Panel) 28.0H, POC Blood Urea Nitrogen (Misc Panel 19, POC Ionized Calcium (Misc Panel) 4.7, POC Creatinine (Misc Panel) 1.1, POC Hematocrit (Misc Panel) 53.0H 03/15/20 08:22: Total Bilirubin 0.9, Direct Bilirubin 0.2, Aspartate Amino Transf (AST/SGOT) 14, Alanine Aminotransferase (ALT/SGPT) 23, Alkaline Phosphatase 98, Total Creatine Kinase 103, Creatine Kinase MB 3.0, Creatine Kinase MB Relative Index 2.91, Troponin I < 0.02, NB-Yvo-F-Type Natriuretic Peptide 188H, Total Protein 7.4, Albumin 3.4, Albumin/Globulin Ratio 0.9, Thyroid Stimulating Hormone (TSH) 1.570, Thyroxine (T4) 11.5 CBC/BMP Laboratory Tests 03/15/20 06:46 Home Medications Scheduled Apixaban (Eliquis) 5 Mg Tablet, 5 MG PO BID Clopidogrel Bisulfate (Clopidogrel) 75 Mg Tab, 75 MG PO DAILY Fluticasone Furoate (Arnuity Ellipta) 200 Mcg/Act Inh, 1 PUFF INH DAILY Hydrochlorothiazide (Hydrochlorothiazide) 50 Mg Tab, 50 MG PO DAILY Losartan Potassium (Losartan Potassium) 50 Mg Tablet, 100 MG PO DAILY Umeclidinium Brm/Vilanterol Tr (Anoro Ellipta 62.5-25 Mcg INH) 1 Each Blst.w.dev, 1 PUFF INH DAILY Scheduled PRN Acetaminophen (Acetaminophen) 500 Mg Tablet, 500 MG PO Q6H PRN for PAIN Albuterol Sulfate (Ventolin Hfa) 108 Mcg/Act Aer, 2 PUFF INH Q4H PRN for SHORTNE SS OF BREATH Albuterol Sulfate (Albuterol Sulfate) 2.5 Mg/0.5 Ml Vial.neb, 2.5 MG INH Q6H PRN for SOB/WHEEZING Allergies Coded Allergies: codeine (Verified Allergy, Unknown, NAUSEA, 07/08/19) A-FIB/CHADSVASC A-FIB History Current/History of A-Fib/PAF?: No EMY CULVER MD March 15, 2020 13:44
[2020-03-15] MEDS ORDERED: ACETAMINOPHEN 500 MG TAB PO PRN (13:45)
[2020-03-15] MEDS ORDERED: IPRATROPIUM 0.5MG/ALBUTEROL 2.5MG INH SOL UD 3ML (DUONEB)(J7620) NEB PRN (13:45)
[2020-03-15] MEDS ORDERED: ALBUTEROL SULFATE 2.5 MG/0.5 ML INH NEB SOLN INH PRN (13:45)
[2020-03-15 14:00] VITALS: BP 123/70
[2020-03-15] MEDS: LOSARTAN 50MG TABLET PO SCH (14:02)
[2020-03-15] MEDS: hydroCHLOROthiazide 25 MG TAB PO SCH (14:03)
--- NOTE | 2020-03-15 19:51 | ECGEPIP ---
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
[2020-03-15] MEDS: APIXABAN 5 MG TAB (ELIQUIS) PO SCH (20:38)
[2020-03-15 22:00] VITALS: BP 136/81
[2020-03-16 06:00] VITALS: BP 118/69
[2020-03-16 07:19] LABS: HEMOGLOBIN 15.9 g/dl (13.5-17.5); MEAN CORPUSCULAR HGB CONC 33.8 g/dl (32.0-36.5); MEAN CORPUSCULAR VOLUME 82.9 fl (80.0-96.0); PLATELET COUNT, AUTOMATED 221 10^3/uL (150-450); RED BLOOD COUNT 5.67 10^6/uL (4.30-6.10); WHITE BLOOD COUNT 13.4 10^3/uL (4.0-10.0)
[2020-03-16 07:44] LABS: ALBUMIN 3.2 GM/DL (3.2-5.2); ALT/SGPT 20 U/L (12-78); BILIRUBIN,TOTAL 0.6 MG/DL (0.2-1.0); BLOOD UREA NITROGEN 24 MG/DL (7-18); CALCIUM LEVEL 8.7 MG/DL (8.5-10.1); CARBON DIOXIDE LEVEL 31 MEQ/L (21-32); CHLORIDE LEVEL 105 MEQ/L (98-107); CREATININE FOR GFR 0.98 MG/DL (0.70-1.30); GLOMERULAR FILTRATION RATE > 60.0 (>56); GLUCOSE, FASTING 116 MG/DL (70-100); MAGNESIUM LEVEL 2.2 MG/DL (1.8-2.4); POTASSIUM SERUM 3.8 MEQ/L (3.5-5.1); SODIUM LEVEL 139 MEQ/L (136-145); TOTAL PROTEIN 6.1 GM/DL (6.4-8.2)
--- NOTE | 2020-03-16 07:52 | IPNPDOC ---
Date Seen The patient was seen on 03/16/20. Progress Note SUBJECTIVE: Patient is a -year-old [RACE] [GENDER] with OBJECTIVE PHYSICAL EXAMINATION: VITAL SIGNS: Please see below. GENERAL: HEENT: CARDIOVASCULAR: . RESPIRATORY: . ABDOMINAL: EXTREMITIES: NEUROLOGICAL: PSYCHOLOGICAL: LABORATORY DATA, IMAGING STUDIES, MICROBIOLOGY: Please see below. Echocardiogram: . DVT prophylaxis ordered?: ASSESSMENT AND PLAN: This is a -year-old [RACE] [GENDER] with . ASSESSMENT: 59-year-old male with multiple medical comorbidities, is being admitted for COPD exacerbation. PLAN: 1. COPD exacerbation. Possibly secondary to running out of antihypertensive medication, prednisone 50 mg daily, nebs as needed, supplemental oxygen as needed to maintain O2 sats between 80-92%. 2. DVT. Continue Eliquis 3. Hypertension. Continue losartan and hydrochlorothiazide 4. CVA. Continue Plavix DVT prophylaxis: On Eliquis GI prophylaxis: Not needed DISPOSITION: . VS, I&O, 24H, [facility] Vital Signs/I&O Vital Signs Date Time Temp Pulse Resp B/P (MAP) Pulse Ox O2 Delivery O2 Flow Rate FiO2 03/16/20 06:00 97.9 77 18 118/69 (85) 94 Room Air I&O- Last 24 Hours up to 6 AM0 03/16/20 06:00 Intake Total 960 ml Output Total 400 ml Balance 560 ml Laboratory Data 24H LABS Laboratory Tests 2 03/15/20 07:43: POC Glucose (Misc Panel) 94, POC Sodium (Misc Panel) 143, POC Potassium (Misc Panel) 3.4L, POC Chloride (Misc Panel) 100, POC Total CO2 (Misc Panel) 28.0H, POC Blood Urea Nitrogen (Misc Panel 19, POC Ionized Calcium (Misc Panel) 4.7, POC Creatinine (Misc Panel) 1.1, POC Hematocrit (Misc Panel) 53.0H 03/15/20 08:22: Total Bilirubin 0.9, Direct Bilirubin 0.2, Aspartate Amino Transf (AST/SGOT) 14, Alanine Aminotransferase (ALT/SGPT) 23, Alkaline Phosphatase 98, Total Creatine Kinase 103, Creatine Kinase MB 3.0, Creatine Kinase MB Relative Index 2.91, Troponin I < 0.02, XC-Kcl-U-Type Natriuretic Peptide 188H, Total Protein 7.4, Albumin 3.4, Albumin/Globulin Ratio 0.9, Thyroid Stimulating Hormone (TSH) 1.570, Thyroxine (T4) 11.5 03/16/20 07:01: Nucleated Red Blood Cells % (auto) 0.0 CBC/BMP Laboratory Tests 03/16/20 07:01 MEGHNA DEJESUS 1, 2020 07:52
[2020-03-16] MEDS ORDERED: CLOPIDOGREL 75 MG TAB PO SCH (09:00)
[2020-03-16] MEDS ORDERED: predniSONE 50 MG TAB PO SCH (09:00)
[2020-03-16 09:22] VITALS: BP 118/69
[2020-03-16] MEDS: hydroCHLOROthiazide 25 MG TAB PO SCH (09:22)
[2020-03-16] MEDS: LOSARTAN 50MG TABLET PO SCH (09:22)
[2020-03-16] MEDS: APIXABAN 5 MG TAB (ELIQUIS) PO SCH (09:23)
[2020-03-16] MEDS ORDERED: PRED20TA PO (10:16)
--- NOTE | 2020-03-16 13:58 | DS.PDOC ---
Discharge Summary General Date of Admission March 15, 2020 at 11:44 Date of Discharge 03/16/2020 Discharge Summary PROCEDURES PERFORMED DURING STAY: [None]. ADMITTING DIAGNOSES: 1. COPD exacerbation 2. Hx of DVT 3. HTN 4. Hx of CVA DISCHARGE DIAGNOSES: 1. COPD exacerbation, improved. 2. History of DVT 3. HTN 4. History of CVA COMPLICATIONS/CHIEF COMPLAINT: Copd Exacerbation,Deep Vein Thrombosis Lt Lower Ex. HISTORY OF PRESENT ILLNESS: Pt is a 59 yo male with PMH of COPD, DVT and hypertension, presents from home with worsening dyspnea and cough for the past few days. Pt reported that his symptoms started on with worsening shortness of breath and cough, and pt started developing increased sputum production on the day of admission. He reports multiple exacerbations of COPD the past, believes same things happening right now. He has no additional complaints, denies any fever, chest pain, nausea, vomiting, diarrhea or constipation. He denies any recent travel or exposure to COVID-19. Pt also reported running out of his antihypertensive medications 2-3 days ago. HOSPITAL COURSE: On the day of discharge, pt reported improving dyspnea and cough. He reported he only has dyspnea with exertion with has much improved compared to admission. His reported productive sputum but denies any blood in the sputum. DISCHARGE MEDICATIONS: Please see below. ALLERGIES: Please see below. PHYSICAL EXAMINATION ON DISCHARGE: VITAL SIGNS: Please see below. GENERAL: Alert and wake, not in acute distress HEENT: Head normocephalic, atraumatic, mucosa appears moist NECK: supple CARDIOVASCULAR EXAMINATION: Normal S1, S2, no murmurs RESPIRATORY EXAMINATION: Good air movement, mild wheezing aus b/l ABDOMINAL EXAMINATION: Soft, nontender, nondistended, positive bowel sounds SKIN: No obvious rash noted NEUROLOGICAL EXAMINATION: Alert and oriented 3, no focal neurological deficits or memory deficits PSYCHIATRIC EXAMINATION: Calm and cooperative LABORATORY DATA: Please see below. IMAGIN03/15/2020 CTA neg for PE or infiltration 03/15/2020 CXR showed no active pulm disease PROGNOSIS: Fair ACTIVITY: [As tolerated]. DIET: As tolerated DISCHARGE PLAN AND INSTRUCTIONS: 1. Take prednisone 40mg for 5 days 2. Follow up with PCP in a week ITEMS TO FOLLOWUP ON ON OUTPATIENT: 1. COPD DISCHARGE CONDITION: [Improved]. TIME SPENT ON DISCHARGE: Greater than 35 minutes. Vital Signs/I&Os Vital Signs Date Time Temp Pulse Resp B/P (MAP) Pulse Ox O2 Delivery O2 Flow Rate FiO2 03/16/20 09:22 118/69 03/16/20 06:00 97.9 77 18 94 Room Air I&O- Last 24 Hours up to 6 AM 03/16/20 06:00 Intake Total 960 ml Output Total 400 ml Balance 560 ml Laboratory Data Labs 24H Laboratory Tests 2 03/16/20 07:01: Nucleated Red Blood Cells % (auto) 0.0, Anion Gap 3L, Glomerular Filtration Rate > 60.0, Calcium Level 8.7, Magnesium Level 2.2, Total Bilirubin 0.6, Aspartate Amino Transf (AST/SGOT) 18, Alanine Aminotransferase (ALT/SGPT) 20, Alkaline Phosphatase 81, Total Protein 6.1L, Albumin 3.2, Albumin/Globulin Ratio 1.1 CBC/BMP Laboratory Tests 03/16/20 07:01 Discharge Medications Scheduled Apixaban (Eliquis) 5 Mg Tablet, 5 MG PO BID, (Reported) Clopidogrel Bisulfate (Clopidogrel) 75 Mg Tab, 75 MG PO DAILY, (Reported) Fluticasone Furoate (Arnuity Ellipta) 200 Mcg/Act Inh, 1 PUFF INH DAILY, (Reported) Hydrochlorothiazide (Hydrochlorothiazide) 50 Mg Tab, 50 MG PO DAILY, (Reported) Losartan Potassium (Losartan Potassium) 50 Mg Tablet, 100 MG PO DAILY, (Reported) Prednisone (Prednisone) 20 Mg Tablet, 20 MG PO BID Umeclidinium Brm/Vilanterol Tr (Anoro Ellipta 62.5-25 Mcg INH) 1 Each Blst.w.dev, 1 PUFF INH DAILY, (Reported) Scheduled PRN Acetaminophen (Acetaminophen) 500 Mg Tablet, 500 MG PO Q6H PRN for PAIN, (Reported) Albuterol Sulfate (Ventolin Hfa) 108 Mcg/Act Aer, 2 PUFF INH Q4H PRN for SHORTNESS OF BREATH, (Reported) Albuterol Sulfate (Albuterol Sulfate) 2.5 Mg/0.5 Ml Vial.neb, 2.5 MG INH Q6H PRN for SOB/WHEEZING, (Reported) Allergies Coded Allergies: codeine (Verified Allergy, Unknown, NAUSEA, 07/08/19) GME ATTESTATION GME ATTESTATION My faculty preceptor for this patient encounter was physically present during the encounter and was fully available. All aspects of the patient interview, examination, medical decision making process, and medical care plan development were reviewed and approved by the faculty preceptor. The faculty preceptor is aware and concurs with the plan as stated in the body of this note and will attest to such by his/her cosignature. MEGHNA DEJESUS DO Mar 16, 2020 13:58
== END 2020-03-16 12:35 | disposition home or self-care (01) | DRG 140 ==
LOC: M ED 05:56 → M ED INP 11:44 → ENRESERV 12:31 → M MS5PR 13:00
PROVIDERS: ADMIT Internal Medicine; ATTEND Internal Medicine
DX: J44.1 Chronic obstructive pulmonary disease with (acute) exacerbation (principal); I10 Essential (primary) hypertension; Z86.73 Personal history of transient ischemic attack (TIA), and cerebral infarction without residual deficits; Z86.718 Personal history of other venous thrombosis and embolism; Z79.899 Other long term (current) drug therapy; Z88.5 Allergy status to narcotic agent; F17.210 Nicotine dependence, cigarettes, uncomplicated

== ENCOUNTER 2020-11-02 12:07 | Emergency (ER) | payer OTHER ==
[~2020-11-02] VITALS: Ht 180.3 cm; Wt 101.3 kg
[~2020-11-02 12:07] MED LIST changes: +ALB2.5NEB INH; +ALBU1.25 NEB; +HYDR-3490 PO; -HYDR25TAB PO; +NICO1DIS12; -NICO21DI31
--- OUTSIDE RECORDS SUMMARY | 2020-11-02 12:18 | CCD ---
Author Author [facility] Organization [facility] Address Unknown Phone Unavailable Care Team Providers Care Manager Winter Name Role Phone Andrew Washington Unavailable PROBLEMS Type Condition ICD9-CM Code NNE26-UZ Code Onset Dates Condition S tatus SNOMED Code Notes Problem Left leg weakness M62.81 Active 819121086 Problem COPD, severe J44.9 Active 709052324 Problem Tobacco dependence F17.200 Active 51579904 Problem Cigarette nicotine dependence without complication F17.210 Active 33501900 Problem History of stroke Z86.73 Active 921652348 Problem Environmental allergies Z91.09 Active 69270026 7 Problem Essential hypertension I10 Active 97149773 Problem Cerebrovascular accident (CVA), unspecified mechanism I63.9 Active 433250880 Problem Chronic deep vein thrombosis (DVT) of popliteal vein of left lower extremity I82.532 Active 176056833251063 Problem COPD exacerbation J44.1 Active 798516323 Problem Cigarette nicotine dependence with other nicotin e-induced disorder F17.218 Active 31562518730188061 ALLERGIES Allergen (clinical drug ingredient) Drug/Non Drug Allergy do cumented on EMR Reaction Allergy Type Onset Date Status codeine Codeine Sulfate([facility] Code:[address]-51) Nausea/Vomiting Dr olea Allergy Active ENCOUNTERS from 1962 to 2020-09-30 Encounter Location Date Provider Diagnosis [facility] Resident [address] [place] [address] 15 Sep, 2020 Andrew Washington IMMUNIZATIONS Vaccine Route Administration Date Status Influenza (18 yrs & older) Flublok Unknown Aug 07, 2018 Others Zoster 50mcg/0.5mL (Shingrix) IM Intramuscular May 10, 2019 A dministered Pneumococcal Adult 0.5mL (Pneumovax 23) Unknown December Refused Influenza (6mo & up) Fluzone Unknown Jul 18, 2017 Oth ers Influenza (6mo & up) Fluzone Unknown Aug 15, 2016 Oth ers zz*Influenza Preservative Free (36 months & up) Unknown Jul 18, 2017 Pending SOCIAL HISTORY Tobacco Use: Social History Observation Description Date Details (start date - stop date) Current Smoker Sex Assigned At : Social History Observation Description Sex Assigned At Unknown Education: Question Answer Notes Level of Education: High School Audit Question Answer Notes Total Score: 0 Interpretation: Alcohol Education Sexual Hx: Question Answer Notes Had sex in the last 12 months (vaginal, oral, or anal)? Yes Have you ever had an STD? No with Women only Use protection? No Drug and Alcohol Question Answer Notes Total Score: 0 Interpretation: No problems reported Alcohol Screening: Question Answer Notes Did you have a drink containing alcohol in the past year? No Points 0 Interpretation Negative BMI Care Goal Follow-Up Question Answer Notes Above Normal BMI Follow-Up Lifestyle education regarding t Tobacco Use: Question Answer Notes Are you a: current smoker Smoking Cessation Information Given 07/02/2019 Patient counseled on the dangers of tobacco use and urged to quit: 07/02/2019 How many cigarettes a day do you smoke? 6-10 Are you interested in quitting? Thinking about quitting Tryi ng to cut down Counseled the patient on smoking cessation, education provid ed 07/02/2019 REASON FOR REFERRAL No Information VITAL SIGNS No information MEDICATIONS Medication SIG (Take, Route, Frequency, Duration) Notes Start Da te End Date Status Albuterol Sulfate (2.5 MG/3ML) 0.083% 3 ml Inhalation every 4 hours as needed for shortness of breath Jun, Active Eliquis 5 MG 1 tablet Orally twice daily for 30 Days Active E-Z Spacer - as directed _ _ Sep, Activ e Zyrtec Allergy 10 MG 1 capsule Orally Once a day for 30 day(s) Mar, Active Anoro Ellipta 62.5-25 MCG/INH 1 puff Inhalation Once a day for 30 day s Active Acetaminophen 500 MG 1 tablet as needed Orally every 6 hrs Active Hydrochlorothiazide 50 MG 1 tablet in the morning Orally Onc e a day for 30 days Apr, Active Chantix Starting Month Roberto 0.5 MG X 11 & 1 MG X 42 as directed Orally Daily for 30 Days Mar, Active Losartan Potassium 50 MG 2 tablets Once a day Orally 90 days Orally Daily for 30 Days Active Plavix 75 MG 1 tablet Once a day Orally 90 days orally Daily for 30 D ays Active Potassium Gluconate 550 (90 K) MG 1 tablet Orally Once a day Active Nebulizer - as directed (J44.1) as directed 3x a day as need ed for 99 months Oct, Active Arnuity Ellipta 200 MCG/ACT 1 puff Inhalation Once a day for 30 days Active Ventolin HFA 108 (90 Base) MCG/ACT 2 puffs as needed Inhalation every 4 hrs Sep, Active PROCEDURES No Information RESULTS No Results REASON FOR VISIT no showed MEDICAL (GENERAL) HISTORY Type Description Date Medical History COPD, GOLD IV Medical History Cigarette nicotine dependence without co mplication Medical History CVA 2009 (stroke) Medical History TIA 2002 Surgical History Denies surgery Surgical History Colonoscopy Hospitalization History TIA 2002 Hospitalization History Stroke 2009 Hospitalization History Pneumonia 2014 Hospitalization History COPD excarebation and HTN 12/20/2016 Hospitalization History COPD 02/2020 Goals Section No Information Health Concerns No Information MEDICAL EQUIPMENT No Information MENTAL STATUS No Information FUNCTIONAL STATUS No Information ASSESSMENTS No Information PLAN OF TREATMENT Medication Medication Name Sig Start Date Stop Date Zyrtec Allergy 10 MG 1 capsule Orally Once a day for 30 day(s) 1 Mar, Anoro Ellipta 62.5-25 MCG/INH 1 puff Inhalation Once a day for 3 0 days Arnuity Ellipta 200 MCG/ACT 1 puff Inhalation Once a day for 30 days Chantix Starting Month Roberto 0.5 MG X 11 & 1 MG X 42 as directed Orally Daily for 30 Days Mar, Hydrochlorothiazide 50 MG 1 tablet in the morning Orally Onc e a day for 30 days Apr, Plavix 75 MG 1 tablet Once a day Orally 90 days orally Daily for 30 Days Losartan Potassium 50 MG 2 tablets Once a day Orally 90 days Orally Daily for 30 Days Next Appt Details Provider Name:Andrew Washington 2020-10-13 11:30:00 AM, [address], [place], [address], Insurance Providers Payer Name Payer Address Payer Phone Insured Name Patient Relati onship to Insured Coverage Start Date Coverage End Date COUNTS INCLUDE 234 BEDS AT [facility] [address] [facility] [phone] PREETI DAO self
--- OUTSIDE RECORDS SUMMARY | 2020-11-02 12:18 | CCD ---
Author Author [facility] Organization [facility] Address Unknown Phone Unavailable Support Name Relationship Address Phone [employer] Next Of Kin [address] [place] [address] [place] [address] FELIBERTOJanuary Next Of Kin [address] [place] [address] [place] [address] UE Next Of Kin [place] Un[place] [address] IRAHE[place], [place] [address] [phone] Re-disclosure Warning The records that you are about to access may contain information from federally-assisted alcohol or drug abuse programs. If such information is present, then the following federally mandated warning applies: This information has been disclosed to you from records protected by federal confidentiality rules (42 CFR part 2). The federal rules prohibit you from making any further disclosure of this information unless further disclosure is expressly permitted by the written consent of the person to whom it pertains or as otherwise permitted by 42 CFR part 2. A general authorization for the release of medical or other information is NOT sufficient for this purpose. The Federal rules restrict any use of the information to criminally investigate or prosecute any alcohol or drug abuse patient.The records that you are about to access may contain highly sensitive health information, the redisclosure of which is protected by Article 27-F of the [facility] Public Health law. If you continue you may have access to information: Regarding HIV / AIDS; Provided by facilities licensed or operated by the [facility] Office of Mental Health; or Provided by the [facility] Office for People With Developmental Disabilities. If such information is present, then the following [facility] mandated warning applies: This information has been disclosed to you from confidential records which are protected by state law. State law prohibits you from making any further disclosure of this information without the specific written consent of the person to whom it pertains, or as otherwise permitted by law. Any unauthorized further disclosure in violation of state law may result in a fine or nursing home sentence or both. A general authorization for the release of medical or other information is NOT sufficient authorization for further disc losure. Allergies and Adverse Reactions Type Description Substance Reaction Status Data Source(s ) Codeine Sulfate Codeine Sulfate Codeine Sulfate Nausea/Vomiting Acti ve eCW1 ([facility]) Encounters Encounter Providers Location Date Indications Data Source(s ) Unknown [address] [facility] [id number] 09/29/2020 12:00:00 AM EST eCW1 ([facility]) Unknown [address] [facility] [address] 07/28/2020 12:00:00 AM EDT eCW1 ([facility]) Outpatient [address] [facility] [id number] 04/02/2020 12:00:00 AM EDT eCW1 ([facility]) Outpatient 03/27/2020 06:13:00 AM EDT [facility] [place] [address] [facility] [address] 03/17/2020 12:00:00 AM EDT eCW1 ([facility]) [facility] [address] [facility] [address] 01/09/2020 12:00:00 AM EDT eCW1 ([facility]) [facility] [address] [facility] [address] 01/07/2020 12:00:00 AM EDT eCW1 ([facility]) [facility] [address] [facility] [address] 01/02/2020 12:00:00 AM EDT eCW1 ([facility]) [facility] [address] [place] [address] 12/30/2019 12:00:00 AM EDT [facility] [place] [address] [facility] [address] 12/16/2019 12:00:00 AM EST eCW1 ([facility]) [facility] [address] [place] [phone] 12/16/2019 12:00:00 AM EST eCW1 ([facility]) Outpatient 12/12/2019 08:09:00 PM EST [facility] [place] [address] [facility] [address] 12/09/2019 12:00:00 AM EST eCW1 ([facility]) Outpatient 11/25/2019 04:10:00 PM EST [facility] Outpatient 11/12/2019 10:57:00 AM EST [facility] [address] [place] [address] 11/11/2019 12:00:00 AM EST eCW1 ([facility]) [facility] [place] [address] [facility] [place] [address] 11/08/2019 12:00:00 AM EST eCW1 ([facility]) [facility] [place] [address] [facility] [place] [address] 10/28/2019 12:00:00 AM EST eCW1 ([facility]) [facility] [place] [address] [facility] [place] [address] 10/07/2019 12:00:00 AM EST [facility]CW1 [facility] [address] [place] [address] 09/24/2019 12:00:00 AM EST eCW1 ([facility]) [facility] [place] [address] [facility] [place] [address] 09/10/2019 12:00:00 AM EST eCW1 ([facility]) [facility] [address] [place] [phone] 09/09/2019 12:00:00 AM EST eCW1 ([facility]) Medications Medication Brand Name Start Date Product Form Dose Route Admi nistrative Instructions Pharmacy Instructions Status Indications Reaction Description Data Source(s) Chantix Starting Month Roberto 0.5 MG X 11 & 1 MG X 42 Alessandra ntix Starting Month Roberto 0.5 MG X 11 & 1 MG X 42 04/02/2020 12:00:00 AM EDT active Chantix Starting Month Roberto 0.5 MG X 11 & 1 MG X 42 eCW1 ([facility]) cetirizine hydrochloride 10 MG Oral Capsule [Zyrtec] Z yrtec Allergy 10 MG Zyrtec Allergy 10 MG 04/02/2020 12:00:00 AM EDT 1.0 {capsule} active Zyrtec Allergy 10 MG eCW1 ([facility]) cetirizine hydrochloride 10 MG Oral Capsule [Zyrtec] Z yrtec Allergy 10 MG Zyrtec Allergy 10 MG 04/02/2020 12:00:00 AM EDT 1.0 {capsule} active Zyrtec Allergy 10 MG eCW1 ([facility]) Chantix Starting Month Roberto 0.5 MG X 11 & 1 MG X 42 Alessandra ntix Starting Month Roberto 0.5 MG X 11 & 1 MG X 42 04/02/2020 12:00:00 AM EDT active Chantix Starting Month Roberto 0.5 MG X 11 & 1 MG X 42 eCW1 ([facility]) cetirizine hydrochloride 10 MG Oral Capsule [Zyrtec] Z yrtec Allergy 10 MG Zyrtec Allergy 10 MG 04/02/2020 12:00:00 AM EDT 1.0 {capsule} active Zyrtec Allergy 10 MG eCW1 ([facility]) Chantix Starting Month Roberto 0.5 MG X 11 & 1 MG X 42 Alessandra ntix Starting Month Roberto 0.5 MG X 11 & 1 MG X 42 04/02/2020 12:00:00 AM EDT active Chantix Starting Month Roberto 0.5 MG X 11 & 1 MG X 42 eCW1 ([facility]) Meclizine Hydrochloride 25 MG Oral Tablet Meclizine HC l 25 mg Meclizine HCl 25 mg 12/06/2019 12:00:00 AM EST 1.0 {tablet_as_needed} suspended Meclizine HCl 25 mg eCW1 ([facility]) Meclizine Hydrochloride 25 MG Oral Tablet Meclizine HC l 25 mg Meclizine HCl 25 mg 12/06/2019 12:00:00 AM EST active 1 tablet as needed eCW1 ([facility]) Insurance Providers Payer name Policy type / Coverage type Policy ID Covered alliance party ID Covered alliance party's relationship to rodríguez Policy Rodríguez Plan Information [facility] [id number] SP [id number] [facility] COMMUNITY PLAN MCDO [id number] SP [id number] [facility] [id number] SP [id number] [facility] O [id number] S [id number] [facility] [id number] [facility]-Medicaid [id number] [facility]-Medicaid [id number] [facility]-Medicaid [id number] [facility]-Medicaid [id number] [facility]-Medicaid [id number] ANSI-Medicaid [id number] ANSI-Medicaid [id number] ANSI-Medicaid [id number] ANSI-Medicaid [id number] ANSI-Medicaid [id number] ANSI-Medicaid [id number] ANSI-Medicaid [id number] ANSI-Medicaid [id number] ANSI-Medicaid [id number] ANSI-Medicaid [id number] ANSI-Medicaid [id number] ANSI-Medicaid [id number] ANSI-Medicaid [id number] ANSI-Medicaid [id number] ANSI-Medicaid [id number] ANSI-Medicaid [id number] ANSI-Medicaid [id number] ANSI-Medicaid [id number] [facility] [id number] SP [id number] [facility] COMMUNITY PLAN [facility] [id number] SP [id number] [facility] O [id number] S [id number] [facility]) O [id number] S [id number] [facility] COMM[facility] [id number] SP [id number] [facility] COMMUNITY PLAN [facility] [id number] SP [id number] MEDICAID [id number] SP [id number] Problems, Conditions, and Diagnoses Code Display Name Description Problem Type Effective Dates Data Source(s) Z91.09 [id number] Environmental allergies Problem 04/02/2020 1 2:00:00 AM EDT eCW1 ([facility]) F17.210 [id number] Cigarette nicotine dependence without com plication Problem 04/02/2020 12:00:00 AM EDT eCW1 ([facility]) F17.218 [id number] Cigarette nicotine d ependence with other nicotine- induced disorder Problem 09/24/2019 12:00:00 AM EST eCW1 ([facility]) F17.218 [id number] Cigarette nicotine d ependence with other nicotine- induced disorder Problem 09/24/2019 12:00:00 AM EST eCW1 ([facility]) Surgeries/Procedures Procedure Description Date Indications Data Source(s) Transitional Care NO CHARGE Visit 12/09/2019 12:00:00 AM EST eCW1 ([facility]) Social History Code Duration Value Status Description Data Source(s ) Smoking 04/02/2020 12:00:00 AM EDT Current Smoker completed Curre nt Smoker eCW1 ([facility]) Smoking 04/02/2020 12:00:00 AM EDT Current Smoker completed Curre nt Smoker eCW1 ([facility]) Smoking 04/02/2020 12:00:00 AM EDT Current Smoker completed Curre nt Smoker eCW1 ([facility]) Vital Signs ID Date Data Source UNK Name Value Range Interpretation Code Description Data Source(s) Diastolic blood pressure 74 mm[Hg] 74 mm[Hg] eCW1 ([facility]) Systolic blood pressure 122 mm[Hg] 122 mm[Hg] e CW1 ([facility]) Body temperature 97.3 [degF] 97.3 [degF] eCW1 ( [facility]) Respiratory rate 20 /min 20 /min eCW1 ([facility]) Heart rate 98 /min 98 /min eCW1 ([facility]) Body mass index (BMI) [Ratio] 31.10 kg/m2 31.10 kg/m2 W1 ([facility]) Body height 71 [in_i] 71 [in_i] eCW1 ([facility]) Body weight 223.0 [lb_av] 223.0 [lb_av] [facility] Diastolic blood pressure 82 mm[Hg] 82 mm[Hg] eCW1 ([facility]) Systolic blood pressure 132 mm[Hg] 132 mm[Hg] e CW1 ([facility]) Body temperature 97.8 [degF] 97.8 [degF] eCW1 ( [facility]) Respiratory rate 20 /min 20 /min eCW1 ([facility]) Heart rate 89 /min 89 /min eCW1 ([facility]) Body mass index (BMI) [Ratio] 32.52 kg/m2 32.52 kg/m2 eCW1 ([facility]) Body height 71 [in_us] 71 [in_us] eCW1 ([facility]) Body weight Measured 233.2 [lb_av] 233.2 [lb_av ] eCW1 ([facility]) Diastolic blood pressure 80 mm[Hg] 80 mm[Hg] eCW1 ([facility]) Systolic blood pressure 130 mm[Hg] 130 mm[Hg] e CW1 ([facility]) Body temperature 97.6 [degF] 97.6 [degF] eCW1 ( [facility]) Respiratory rate 20 /min 20 /min eCW1 ([facility]) Heart rate 86 /min 86 /min eCW1 ([facility]) Body mass index (BMI) [Ratio] 33.19 kg/m2 33.19 kg/m2 eCW1 ([facility]) Body height 71 [in_us] 71 [in_us] eCW1 ([facility]) Body weight Measured 238 [lb_av] 238 [lb_av] eC W1 ([facility]) Patient Treatment Plan of Care Planned Activity Planned Date Details Description Data Source (s) Chantix Starting Month Roberto 0.5 MG X 11 & 1 MG X 42 04/02/2020 12 :00:00 AM EDT eCW1 ([facility]) cetirizine hydrochloride 10 MG Oral Capsule [Zyrtec] 020 12:00:00 AM EDT eCW1 ([facility]) cetirizine hydrochloride 10 MG Oral Capsule [Zyrtec] 020 12:00:00 AM EDT eCW1 ([facility]) Chantix Starting Month Roberto 0.5 MG X 11 & 1 MG X 42 04/02/2020 12 :00:00 AM EDT eCW1 ([facility]) Chantix Starting Month Roberto 0.5 MG X 11 & 1 MG X 42 04/02/2020 12 :00:00 AM EDT eCW1 ([facility]) cetirizine hydrochloride 10 MG Oral Capsule [Zyrtec] 020 12:00:00 AM EDT eCW1 ([facility])
[2020-11-02] MEDS ORDERED: COMBIVENT RESPIMAT 100-20MCG INHALER 4GM INH ONE (12:45)
--- NOTE | 2020-11-02 13:17 | REP ---
INDICATION: Coronavirus workup. COMPARISON: Comparison portable chest x-ray March 15, 2020.November 07, 2019 prior chest x-ray is reviewed, along with chest CT study from March 04 11/14/2019. TECHNIQUE: Portable upright AP chest radiograph. FINDINGS: . There is a hazy peripheral opacity in the left base. This suggests a smalla areaaa of infiltrate. There is also a granuloma in the left lateral pleural angle. This is unchanged. Lungs overall appear somewhat hyperinflated. Heart is not enlarged. Aorta is somewhat tortuous. No other infiltrate is seen. IMPRESSION: Small area of hazy opacity in the left lung base suggestive of early infiltrate. Hyperinflation. Otherwise no acute disease.. <Electronically signed by Jasper Torres > 11/02/20 [id number]
[2020-11-02 13:24] LABS: BASO % 0.3 % (0.0-1.0); EOS % 0.3 % (0.0-3.0); HEMATOCRIT 53.9 % (42.0-52.0); HEMOGLOBIN 17.3 g/dl (13.5-17.5); LYMPH # 1.2 10^3/uL (1.5-5.0); LYMPH % 10.1 % (24.0-44.0); MEAN CORPUSCULAR HGB CONC 32.1 g/dl (32.0-36.5); MEAN CORPUSCULAR VOLUME 80.9 fl (80.0-96.0); MONO # 1.3 10^3/uL (0.0-0.8); MONO % 10.5 % (0.0-5.0); NEUTROPHILS # 9.6 10^3/uL (1.5-8.5); NEUTROPHILS % 78.2 % (36.0-66.0); PLATELET COUNT, AUTOMATED 226 10^3/uL (150-450); RED BLOOD COUNT 6.66 10^6/uL (4.30-6.10); WHITE BLOOD COUNT 12.3 10^3/uL (4.0-10.0)
[2020-11-02 13:35] LABS: INR 0.97; PROTHROMBIN TIME 13.1 SECONDS (12.5-14.3)
[2020-11-02 13:36] LABS: PARTIAL THROMBOPLASTIN TIME 31.3 SECONDS (24.2-38.5)
[2020-11-02 13:38] LABS: D-DIMER QUANT 956.77 ng/ml (<500)
[2020-11-02 13:39] LABS: RSV AMPLIFICATION NEGATIVE (NEGATIVE)
[2020-11-02 13:49] LABS: ALBUMIN 3.2 GM/DL (3.2-5.2); ALT/SGPT 20 U/L (12-78); BILIRUBIN,TOTAL 0.9 MG/DL (0.2-1.0); BLOOD UREA NITROGEN 25 MG/DL (7-18); CALCIUM LEVEL 9.1 MG/DL (8.5-10.1); CARBON DIOXIDE LEVEL 29 MEQ/L (21-32); CHLORIDE LEVEL 101 MEQ/L (98-107); CREATININE FOR GFR 1.21 MG/DL (0.70-1.30); FERRITIN 353 NG/ML (26-388); GLOMERULAR FILTRATION RATE > 60.0 (>56); GLUCOSE, FASTING 108 MG/DL (70-100); LDH LACTATE DEHYDROGENASE 263 U/L (87-241); POTASSIUM SERUM 3.6 MEQ/L (3.5-5.1); SODIUM LEVEL 137 MEQ/L (136-145); TOTAL PROTEIN 6.7 GM/DL (6.4-8.2)
[2020-11-02] MEDS ORDERED: cefTRIAXone SOD 1 GM in D5W MINI-BAG PLUS 50 ML IV ONE (14:30)
[2020-11-02] MEDS ORDERED: AZITHROMYCIN 250MG TABLET PO ONE (14:30)
--- OUTSIDE RECORDS SUMMARY | 2020-11-02 14:33 | CCD ---
Author Author [facility] Organization [facility] Address Unknown Phone Unavailable Support Name Relationship Address Phone [employer] Next Of Kin [address] [place] [address] [place] [address] FELIBERTOJanuary Next Of Kin [address] [place] [address] [place] [address] UE Next Of Kin Unknown Un[place] [address] [place]HE[place], [place] [address] [phone] Re-disclosure Warning The records that you are [...] is protected by Article 27-F of the [facility] Public Health law. If you continue you may have access to information: Regarding HIV / AIDS; Provided by facilities licensed or operated by the [facility] Office of Mental Health; or Provided by the [facility] Office for People With Developmental Disabilities. If such information is present, then the following [facility] mandated warning applies: This information has been [...] law may result in a fine or group home sentence or both. A general authorization for the release of medical or other information is NOT sufficient authorization for further disc losure. Allergies and Adverse Reactions Type Description Substance Reaction Status Data Source(s ) Codeine Sulfate Codeine Sulfate Codeine Sulfate Nausea/Vomiting Acti ve eCW1 ([facility]) Encounters Encounter Providers Location Date Indications Data Source(s ) Unknown [address] [facility] [id number] 09/29/2020 12:00:00 AM EST eCW1 ([facility]) Unknown [address] [facility] [address] 07/28/2020 12:00:00 AM EDT eCW1 ([facility]) Outpatient [address] [facility] [id number] 04/02/2020 12:00:00 AM EDT eCW1 ([facility]) Outpatient 03/27/2020 06:13:00 AM EDT [facility] Unknown [address] [facility] [address] 03/17/2020 12:00:00 AM EDT eCW1 ([facility]) [facility] [address] [facility] [address] 01/09/2020 12:00:00 AM EDT eCW1 ([facility]) [facility] [address] [facility] [address] 01/07/2020 12:00:00 AM EDT eCW1 ([facility]) [facility] [address] [facility] [address] 01/02/2020 12:00:00 AM EDT eCW1 ([facility]) [facility] [address] [place] [address] 12/30/2019 12:00:00 AM EDT eCW1 ([facility]) [facility] [place] [address] [facility] [address] 12/16/2019 12:00:00 AM EST eCW1 ([facility]) [facility] Res[facility] [address] [place] [address] 12/16/2019 12:00:00 AM EST eCW1 ([facility]) Outpatient 12/12/2019 08:09:00 PM EST [facility] [place] [address] [facility] [address] 12/09/2019 12:00:00 AM EST eCW1 ([facility]) Outpatient 11/25/2019 04:10:00 PM EST [facility] Outpatient 11/12/2019 10:57:00 AM EST [facility] Res[facility] [address] [place] [address] 11/11/2019 12:00:00 AM EST eCW1 ([facility]) [facility] [place] [address] [facility] [place] [address] 11/08/2019 12:00:00 AM EST eCW1 ([facility]) [facility] [place] [address] [facility] [place] [address] 10/28/2019 12:00:00 AM EST eCW1 ([facility]) [facility] [place] [address] [facility] [place] [address] 10/07/2019 12:00:00 AM EST eCW1 ([facility] [address] [place] [address] 09/24/2019 12:00:00 AM EST eCW1 ([facility]) [facility] [place] [address] [facility] [place] [address] 09/10/2019 12:00:00 AM EST eCW1 ([facility]) [facility] [address] [place] [address] 09/09/2019 12:00:00 AM EST eCW1 ([facility]) Medications Medication Brand Name Start Date Product [...] 11 & 1 MG X 42 eCW1 ([facility]) cetirizine hydrochloride 10 MG Oral Capsule [Zyrtec] Z yrtec Allergy 10 MG Zyrtec Allergy 10 MG 04/02/2020 12:00:00 AM EDT 1.0 {capsule} active Zyrtec Allergy 10 MG eCW1 ([facility]) cetirizine hydrochloride 10 MG Oral Capsule [Zyrtec] Z yrtec Allergy 10 MG Zyrtec Allergy 10 MG 04/02/2020 12:00:00 AM EDT 1.0 {capsule} active Zyrtec Allergy 10 MG eCW1 ([facility]) Chantix Starting Month Roberto 0.5 MG X 11 & 1 MG X 42 Alessandra ntix Starting Month Roberto 0.5 MG X 11 & 1 MG X 42 04/02/2020 12:00:00 AM EDT active Chantix Starting Month Roberto 0.5 MG X 11 & 1 MG X 42 eCW1 ([facility]) cetirizine hydrochloride 10 MG Oral Capsule [Zyrtec] Z yrtec Allergy 10 MG Zyrtec Allergy 10 MG 04/02/2020 12:00:00 AM EDT 1.0 {capsule} active Zyrtec Allergy 10 MG eCW1 ([facility]) Chantix Starting Month Roberto 0.5 MG X 11 & 1 MG X 42 Alessandra ntix Starting Month Roberto 0.5 MG X 11 & 1 MG X 42 04/02/2020 12:00:00 AM EDT active Chantix Starting Month Roberto 0.5 MG X 11 & 1 MG X 42 eCW1 ([facility]) Meclizine Hydrochloride 25 MG Oral Tablet Meclizine HC l 25 mg Meclizine HCl 25 mg 12/06/2019 12:00:00 AM EST 1.0 {tablet_as_needed} suspended Meclizine HCl 25 mg eCW1 ([facility]) Meclizine Hydrochloride 25 MG Oral Tablet Meclizine HC l 25 mg Meclizine HCl 25 mg 12/06/2019 12:00:00 AM EST active 1 tablet as needed eCW1 ([facility]) Insurance Providers Payer name Policy type / Coverage type Policy ID Covered libertarian ID Covered libertarian's relationship to rodríguez Policy Rodríguez Plan Information [facility] [id number] SP [id number] [facility] MCDO [id number] SP [id number] [facility] COMM[facility] [id number] SP [id number] [facility] O [id number] S [id number] [facility] [id number] [facility] [id number] [facility] [id number] [facility] [id number] [facility] [id number] [facility] [id number] ANSI-Medicaid [id number] ANSI-Medicaid [id number] ANSI-Medicaid [id number] ANSI-Medicaid [id number] ANSI-Medicaid [id number] ANSI-Medicaid [id number] ANSI-Medicaid [id number] ANSI-Medicaid [id number] ANSI-Medicaid [id number] ANSI-Medicaid [id number] ANSI-Medicaid [id number] ANSI-Medicaid [id number] ANSI-Medicaid [id number] ANSI-Medicaid [id number] ANSI-Medicaid [id number] ANSI-Medicaid [id number] ANSI-Medicaid [id number] ANSI-Medicaid [id number] [employer] [facility] [id number] SP [id number] [facility] [id number] SP [id number] [facility]) O [id number] S [id number] [facility]) O [id number] S [id number] [employer] COMM[employer] PLAN [facility] [id number] SP [id number] [facility] [id number] SP [id number] MEDICAID [id number] SP [id number] Problems, Conditions, and Diagnoses Code Display Name Description Problem Type Effective Dates Data Source(s) Z91.09 [id number] Environmental allergies Problem 04/02/2020 1 2:00:00 AM EDT eCW1 ([facility]) F17.210 [id number] Cigarette nicotine dependence without com plication Problem 04/02/2020 12:00:00 AM EDT eCW1 ([facility]) F17.218 [id number] Cigarette nicotine d ependence with other nicotine- induced disorder Problem 09/24/2019 12:00:00 AM EST eCW1 ([facility]) F17.218 [id number] Cigarette nicotine d ependence with other nicotine- induced disorder Problem 09/24/2019 12:00:00 AM EST eCW1 ([facility]) Surgeries/Procedures Procedure Description Date Indications Data Source(s) Transitional Care NO CHARGE Visit 12/09/2019 12:00:00 AM EST eCW1 ([facility]) Social History Code Duration Value Status Description Data Source(s ) Smoking 04/02/2020 12:00:00 AM EDT Current Smoker completed Curre nt Smoker eCW1 ([facility]) Smoking 04/02/2020 12:00:00 AM EDT Current Smoker completed Curre nt Smoker eCW1 ([facility]) Smoking 04/02/2020 12:00:00 AM EDT Current Smoker completed Curre nt Smoker eCW1 ([facility]) Vital Signs ID Date Data Source UNK Name Value Range Interpretation Code Description Data Source(s) Diastolic blood pressure 74 mm[Hg] 74 mm[Hg] eCW1 ([facility]) Systolic blood pressure 122 mm[Hg] 122 mm[Hg] e CW1 ([facility]) Body temperature 97.3 [degF] 97.3 [degF] eCW1 ( [facility]) Respiratory rate 20 /min 20 /min eCW1 ([facility]) Heart rate 98 /min 98 /min eCW1 ([facility]) Body mass index (BMI) [Ratio] 31.10 kg/m2 31.10 kg/m2 W1 ([facility]) Body height 71 [in_i] 71 [in_i] eCW1 ([facility]) Body weight 223.0 [lb_av] 223.0 [lb_av] [facility]CW1 ([facility]) Diastolic blood pressure 82 mm[Hg] 82 mm[Hg] eCW1 ([facility]) Systolic blood pressure 132 mm[Hg] 132 mm[Hg] e CW1 ([facility]) Body temperature 97.8 [degF] 97.8 [degF] eCW1 ( [facility]) Respiratory rate 20 /min 20 /min eCW1 ([facility]) Heart rate 89 /min 89 /min eCW1 ([facility]) Body mass index (BMI) [Ratio] 32.52 kg/m2 32.52 kg/m2 eCW1 ([facility]) Body height 71 [in_us] 71 [in_us] eCW1 ([facility]) Body weight Measured 233.2 [lb_av] 233.2 [lb_av ] eCW1 ([facility]) Diastolic blood pressure 80 mm[Hg] 80 mm[Hg] eCW1 ([facility]) Systolic blood pressure 130 mm[Hg] 130 mm[Hg] e CW1 ([facility]) Body temperature 97.6 [degF] 97.6 [degF] eCW1 ( [facility]) Respiratory rate 20 /min 20 /min eCW1 ([facility]) Heart rate 86 /min 86 /min eCW1 ([facility]) Body mass index (BMI) [Ratio] 33.19 kg/m2 33.19 kg/m2 eCW1 ([facility]) Body height 71 [in_us] 71 [in_us] eCW1 ([facility]) Body weight Measured 238 [lb_av] 238 [lb_av] eC W1 ([facility]) Patient Treatment Plan of Care Planned Activity Planned Date Details Description Data Source (s) Chantix Starting Month Roberto 0.5 MG X 11 & 1 MG X 42 04/02/2020 12 :00:00 AM EDT eCW1 ([facility]) cetirizine hydrochloride 10 MG Oral Capsule [Zyrtec] 020 12:00:00 AM EDT eCW1 ([facility]) cetirizine hydrochloride 10 MG Oral Capsule [Zyrtec] 020 12:00:00 AM EDT eCW1 ([facility]) Chantix Starting Month Roberto 0.5 MG X 11 & 1 MG X 42 04/02/2020 12 :00:00 AM EDT eCW1 ([facility]) Chantix Starting Month Roberto 0.5 MG X 11 & 1 MG X 42 04/02/2020 12 :00:00 AM EDT eCW1 ([facility]) cetirizine hydrochloride 10 MG Oral Capsule [Zyrtec] 020 12:00:00 AM EDT eCW1 ([facility])
[2020-11-02] MEDS ORDERED: AUGM875T28 PO (15:02)
[2020-11-02] MEDS ORDERED: ZITHTAB PO (15:02)
[2020-11-02 15:09] VITALS: BP 111/67
--- NOTE | 2020-11-03 11:31 | ED PDOC ---
Post-Departure Follow-Up cxr faxed to e clinic for fu Tony Cedillo MD Nov 03, 2020 11:31
== END 2020-11-02 15:44 | disposition home or self-care (01) ==
LOC: M ED 12:07
DX: J44.0 Chronic obstructive pulmonary disease with (acute) lower respiratory infection (principal); J18.1 Lobar pneumonia, unspecified organism; I10 Essential (primary) hypertension; E78.5 Hyperlipidemia, unspecified; F17.200 Nicotine dependence, unspecified, uncomplicated; Z79.51 Long term (current) use of inhaled steroids; Z79.899 Other long term (current) drug therapy; Z79.2 Long term (current) use of antibiotics; Z88.6 Allergy status to analgesic agent; Z86.718 Personal history of other venous thrombosis and embolism
CPT/HCPCS: 71045; 80053; 82728; 83605; 83615; 85025; 85379; 85610; 85730; 86140; 87631; 94640; 94760; 96365; 99284; J0696

== ENCOUNTER → 2021-05-28 | Outpatient (CLI) | payer OTHER ==
[2021-05-28 13:25] LABS: HEMOGLOBIN A1c 5.6 %
[2021-05-28 13:43] LABS: ALBUMIN 3.9 GM/DL (3.2-5.2); ALT/SGPT 27 U/L (12-78); BILIRUBIN,TOTAL 0.7 MG/DL (0.2-1.0); BLOOD UREA NITROGEN 19 MG/DL (7-18); CALCIUM LEVEL 9.3 MG/DL (8.5-10.1); CARBON DIOXIDE LEVEL 34 MEQ/L (21-32); CHLORIDE LEVEL 105 MEQ/L (98-107); CHOLESTEROL LEVEL 171 MG/DL (<200); CHOLESTEROL RISK RATIO 2.898 (<5); CREATININE FOR GFR 1.08 MG/DL (0.70-1.30); GLOMERULAR FILTRATION RATE > 60.0 (>56); GLUCOSE, FASTING 98 MG/DL (70-100); HDL CHOLESTEROL 59 MG/DL (>40); LDL CHOLESTEROL 100 MG/DL (<100); NON-HDL-C 112 MG/DL; POTASSIUM SERUM 4.1 MEQ/L (3.5-5.1); SODIUM LEVEL 141 MEQ/L (136-145); TOTAL PROTEIN 6.8 GM/DL (6.4-8.2); TRIGLYCERIDES LEVEL 61 MG/DL (<150)
== END ==
LOC: M PLALAB 11:19
PROVIDERS: ATTEND Student in an Organized Health Care Education/Training Program
DX: E78.49 Other hyperlipidemia (principal)

== ENCOUNTER → 2021-05-28 | Outpatient (REF) | payer OTHER | LOC: M SFHCPLAZ 10:49 | PROVIDERS: ATTEND Family Medicine | DX: E78.5 Hyperlipidemia, unspecified (principal); I10 Essential (primary) hypertension; Z13.1 Encounter for screening for diabetes mellitus; Z53.9 Procedure and treatment not carried out, unspecified reason ==

== ENCOUNTER → 2021-08-04 | Outpatient (CLI) | payer OTHER ==
--- NOTE | 2021-08-04 14:16 | PFTRPT ---
Site: [facility], [address] [place], [address] ID: [id number] Name: PREETI DAO Visit Date: 08/04/2021 Second ID: [id number] Referring Doctor: Jose Lemos D.O. Reviewing Doctor: Balbir Godoy MD Lorry Weigher: Gabrielle PERSAUD RRT Age: 60 : 1960 Sex: Male Race: Height: 70.50 Inches Weight: 225.00 Lbs BSA: 2.21 Order IDs: [id number] Requested Test(s): <RESP-PFT.PFT B/A> Diagnosis: J44.9 test appear to be valid, although the ATS standard for "end of test" was not met. Pt was given four puffs of albuterol for post bronchodilator. Review Status: Not Reviewed Pre-Bronch Post-Bronch Pred Actual %Pred Actual %Chng SPIROMETRY FVC (L) 4.89 2.01 41 2.65 31 FEV1 (L) 3.71 0.83 22 1.00 19 FEV1/FVC (%) 76 41 54 38 -8 FEF 25% (L/sec) 7.92 0.75 9 0.88 16 FEF 50% (L/sec) 4.86 0.48 9 0.59 22 FEF 75% (L/sec) 1.55 0.18 11 0.40 124 FEF 25-75% (L/sec) 3.07 0.35 11 0.60 71 FEF Max (L/sec) 9.41 2.38 25 1.69 -28 FIVC (L) 2.03 2.65 30 FIF 50% (L/sec) 4.75 2.69 56 3.32 23 FIF Max (L/sec) 2.72 3.57 31 MVV (L/min) 143 37 25 Expiratory Time (sec) 6.79 7.55 11 Back Extrap Vol (L) 0.02 0.02 28 Time To FEFmax (sec) 0.064 0.074 16 LUNG VOLUMES SVC (L) 4.84 2.88 59 IC (L) 3.40 1.67 49 ERV (L) 1.44 1.21 84 TGV (L) 3.69 6.21 168 RV (Pleth) (L) 2.25 5.00 222 TLC (Pleth) (L) 7.09 7.88 111 RV/TLC (Pleth) (%) 32 63 198 DIFFUSION DLCOunc (ml/min/mmHg) 28.89 13.46 46 DL/VA (ml/min/mmHg/L) 4.07 3.12 76 VA (L) 7.09 4.31 60 BHT (sec) 10.54 IVC (L) 2.39 TLC (SB) (L) 4.46 AIRWAYS RESISTANCE Raw (cmH2O/L/s) 1.45 2.22 152 Gaw (L/s/cmH2O) 1.03 0.45 43 sRaw (cmH2O*s) 4.76 13.96 293 sGaw (1/cmH2O*s) 0.20 0.07 35
== END ==
LOC: M CARPUL 13:32
PROVIDERS: ATTEND Student in an Organized Health Care Education/Training Program
DX: J44.9 Chronic obstructive pulmonary disease, unspecified (principal)

== ENCOUNTER 2021-11-29 20:15 | Inpatient (IN) | payer OTHER ==
[~2021-11-29] VITALS: Ht 180.3 cm; Wt 104.2 kg
[~2021-11-29 20:15] MED LIST changes: -CEFD1CAP8; +CEFD300C41; +LOSA100T45 PO; -LOSA100T50 PO; +LOSA50TA28 PO; -LOSA50TA88 PO
[2021-11-29 21:24] LABS: BASO % 0.3 % (0.0-1.0); EOS # 0.1 10^3/uL (0.0-0.5); EOS % 0.6 % (0.0-3.0); HEMATOCRIT 51.1 % (42.0-52.0); HEMOGLOBIN 16.8 g/dl (13.5-17.5); LYMPH # 0.9 10^3/uL (1.5-5.0); MEAN CORPUSCULAR HEMOGLOBIN 26.9 pg (27.0-33.0); MEAN CORPUSCULAR HGB CONC 32.9 g/dl (32.0-36.5); MEAN CORPUSCULAR VOLUME 81.9 fl (80.0-96.0); MONO # 0.7 10^3/uL (0.0-0.8); MONO % 7.9 % (2.0-8.0); NEUTROPHILS % 80.6 % (36.0-66.0); PLATELET COUNT, AUTOMATED 237 10^3/uL (150-450); RED BLOOD COUNT 6.24 10^6/uL (4.30-6.10); WHITE BLOOD COUNT 8.6 10^3/uL (4.0-10.0)
[2021-11-29 21:40] LABS: ALBUMIN 3.6 GM/DL (3.2-5.2); ALT/SGPT 24 U/L (12-78); BILIRUBIN,DIRECT 0.2 MG/DL (0.0-0.2); BILIRUBIN,TOTAL 0.7 MG/DL (0.2-1.0); BLOOD UREA NITROGEN 17 MG/DL (7-18); CALCIUM LEVEL 9.2 MG/DL (8.5-10.1); CARBON DIOXIDE LEVEL 31 MEQ/L (21-32); CHLORIDE LEVEL 101 MEQ/L (98-107); CREATININE FOR GFR 1.04 MG/DL (0.70-1.30); GLOMERULAR FILTRATION RATE > 60.0 (>56); GLUCOSE, FASTING 127 MG/DL (70-100); POTASSIUM SERUM 3.6 MEQ/L (3.5-5.1); SODIUM LEVEL 141 MEQ/L (136-145); TOTAL PROTEIN 7.1 GM/DL (6.4-8.2)
[2021-11-29 21:54] LABS: CK-MB VALUE MASS 2.3 NG/ML (<3.6); MB/CK RELATIVE INDEX 3.54 (< OR =4)
[2021-11-29] MEDS ORDERED: HYDR50TAB PO (23:06)
[2021-11-29] MEDS ORDERED: CETI-25 PO (23:14)
[2021-11-29] MEDS ORDERED: IPRA0.00 INH (23:14)
[2021-11-29] MEDS ORDERED: ASPI-161 PO (23:14)
[2021-11-29] MEDS ORDERED: HOME MED LIST COMPLETE! XX SCH (23:15)
[2021-11-29] MEDS ORDERED: ACETAMINOPHEN TAB 650MG DOSE (2X325MG) PO PRN (23:25)
[2021-11-29] MEDS ORDERED: MOM 30ML SUSPENSION UDC PO PRN (23:25)
[2021-11-29] MEDS ORDERED: LEVALBUTEROL 1.25 MG/0.5 ML CONCENTRATE NEB NEB PRN (23:25)
[2021-11-29] MEDS ORDERED: MAALOX 30 ML SUSP *UDC PO PRN (23:25)
[2021-11-29] MEDS ORDERED: NS 1,000 ML IV ONE (23:35)
[2021-11-30] MEDS ORDERED: methylPREDNISolone 125MG 2ML VIAL IV SCH
[2021-11-30] MEDS: DOXYCYCLINE HYCLATE 100MG TABLET PO SCH ×3 (00:08→20:34)
[2021-11-30 00:33] LABS: INR 1.03; PROTHROMBIN TIME 13.9 SECONDS (12.7-14.5)
[2021-11-30 00:34] LABS: PARTIAL THROMBOPLASTIN TIME 35.6 SECONDS (25.9-37.0)
[2021-11-30] MEDS: IPRATROPIUM 0.5MG/ALBUTEROL 2.5MG INH SOL UD 3ML (DUONEB) NEB SCH ×6 (02:00→20:30)
[2021-11-30 07:32] LABS: HEMOGLOBIN 15.6 g/dl (13.5-17.5); MEAN CORPUSCULAR HEMOGLOBIN 26.3 pg (27.0-33.0); MEAN CORPUSCULAR HGB CONC 31.8 g/dl (32.0-36.5); MEAN CORPUSCULAR VOLUME 82.6 fl (80.0-96.0); PLATELET COUNT, AUTOMATED 240 10^3/uL (150-450); RED BLOOD COUNT 5.93 10^6/uL (4.30-6.10); WHITE BLOOD COUNT 5.3 10^3/uL (4.0-10.0)
[2021-11-30 07:51] LABS: BLOOD UREA NITROGEN 18 MG/DL (7-18); CREATININE FOR GFR 1.06 MG/DL (0.70-1.30); GLOMERULAR FILTRATION RATE > 60.0 (>56); GLUCOSE, FASTING 153 MG/DL (70-100); SODIUM LEVEL 140 MEQ/L (136-145)
[2021-11-30 07:52] LABS: CALCIUM LEVEL 9.3 MG/DL (8.5-10.1); CARBON DIOXIDE LEVEL 29 MEQ/L (21-32); CHLORIDE LEVEL 103 MEQ/L (98-107); MAGNESIUM LEVEL 2.2 MG/DL (1.8-2.4); POTASSIUM SERUM 3.7 MEQ/L (3.5-5.1)
[2021-11-30] MEDS: ASPIRIN 81MG ENTERIC TABLET PO SCH (09:11)
[2021-11-30] MEDS: CETIRIZINE (ZyrTEC) 10 MG TAB PO SCH (09:11)
[2021-11-30] MEDS: LOSARTAN 50MG TABLET PO SCH (09:11)
[2021-11-30] MEDS: DOCUSATE SODIUM 100MG CAPSULE PO SCH ×2 (09:11→20:34)
[2021-11-30] MEDS: APIXABAN 5 MG TAB (ELIQUIS) PO SCH ×2 (09:12→20:34)
[2021-11-30] MEDS: FLUTICASONE HFA 220 MCG 12 GM INHALER (FLOVENT) INH SCH ×2 (09:20→21:14)
[2021-11-30 10:00] VITALS: BP 140/84
[2021-11-30] MEDS: methylPREDNISolone 125MG 2ML VIAL IV SCH ×2 (10:53→18:13)
[2021-11-30 16:15] VITALS: BP 104/88
[2021-11-30 17:30] VITALS: O2SAT 91
[2021-11-30 20:30] VITALS: O2SAT 95
[2021-11-30 21:51] VITALS: BP 144/76
[2021-12-01] MEDS: IPRATROPIUM 0.5MG/ALBUTEROL 2.5MG INH SOL UD 3ML (DUONEB) NEB SCH ×6 (00:36→19:49)
[2021-12-01] MEDS: methylPREDNISolone 125MG 2ML VIAL IV SCH ×3 (03:28→18:27)
[2021-12-01 06:00] VITALS: BP 154/91
[2021-12-01 06:10] LABS: HEMATOCRIT 48.2 % (42.0-52.0); HEMOGLOBIN 15.3 g/dl (13.5-17.5); MEAN CORPUSCULAR HEMOGLOBIN 26.5 pg (27.0-33.0); MEAN CORPUSCULAR HGB CONC 31.7 g/dl (32.0-36.5); MEAN CORPUSCULAR VOLUME 83.4 fl (80.0-96.0); PLATELET COUNT, AUTOMATED 267 10^3/uL (150-450); RED BLOOD COUNT 5.78 10^6/uL (4.30-6.10); WHITE BLOOD COUNT 16.1 10^3/uL (4.0-10.0)
[2021-12-01 06:47] LABS: BLOOD UREA NITROGEN 35 MG/DL (7-18); CALCIUM LEVEL 8.6 MG/DL (8.5-10.1); CARBON DIOXIDE LEVEL 32 MEQ/L (21-32); CHLORIDE LEVEL 107 MEQ/L (98-107); CREATININE FOR GFR 1.27 MG/DL (0.70-1.30); GLOMERULAR FILTRATION RATE > 60.0 (>56); GLUCOSE, FASTING 165 MG/DL (70-100); MAGNESIUM LEVEL 2.2 MG/DL (1.8-2.4); PHOSPHORUS LEVEL 3.5 MG/DL (2.5-4.9); POTASSIUM SERUM 4.3 MEQ/L (3.5-5.1); SODIUM LEVEL 144 MEQ/L (136-145)
[2021-12-01] MEDS: FLUTICASONE HFA 220 MCG 12 GM INHALER (FLOVENT) INH SCH ×2 (07:33→19:49)
[2021-12-01] MEDS: DOCUSATE SODIUM 100MG CAPSULE PO SCH ×2 (09:00→20:51)
[2021-12-01] MEDS: APIXABAN 5 MG TAB (ELIQUIS) PO SCH ×2 (09:53→20:31)
[2021-12-01] MEDS: DOXYCYCLINE HYCLATE 100MG TABLET PO SCH ×2 (09:53→20:31)
[2021-12-01] MEDS: CETIRIZINE (ZyrTEC) 10 MG TAB PO SCH (09:53)
[2021-12-01] MEDS: ASPIRIN 81MG ENTERIC TABLET PO SCH (09:53)
[2021-12-01] MEDS: LOSARTAN 50MG TABLET PO SCH (09:54)
[2021-12-01] MEDS: guaiFENesin DM LIQ 10ML UD PO PRN ×2 (11:02→20:31)
[2021-12-01] MEDS ORDERED: hydrOXYzine 10 MG TAB PO ONE (16:00)
[2021-12-01 21:00] VITALS: O2SAT 94
[2021-12-02] MEDS: methylPREDNISolone 125MG 2ML VIAL IV SCH ×4 (02:51→21:27)
[2021-12-02] MEDS: IPRATROPIUM 0.5MG/ALBUTEROL 2.5MG INH SOL UD 3ML (DUONEB) NEB SCH ×7 (04:00→23:30)
[2021-12-02] MEDS: hydrOXYzine 10 MG TAB PO PRN ×2 (04:47→21:27)
[2021-12-02 06:00] VITALS: BP 134/92
[2021-12-02 06:17] LABS: HEMATOCRIT 45.9 % (42.0-52.0); HEMOGLOBIN 14.6 g/dl (13.5-17.5); MEAN CORPUSCULAR HEMOGLOBIN 26.5 pg (27.0-33.0); MEAN CORPUSCULAR HGB CONC 31.8 g/dl (32.0-36.5); MEAN CORPUSCULAR VOLUME 83.5 fl (80.0-96.0); PLATELET COUNT, AUTOMATED 252 10^3/uL (150-450); WHITE BLOOD COUNT 16.9 10^3/uL (4.0-10.0)
[2021-12-02 06:35] LABS: BLOOD UREA NITROGEN 40 MG/DL (7-18); CALCIUM LEVEL 8.6 MG/DL (8.5-10.1); CARBON DIOXIDE LEVEL 32 MEQ/L (21-32); CHLORIDE LEVEL 105 MEQ/L (98-107); CREATININE FOR GFR 1.21 MG/DL (0.70-1.30); GLOMERULAR FILTRATION RATE > 60.0 (>56); GLUCOSE, FASTING 134 MG/DL (70-100); MAGNESIUM LEVEL 2.2 MG/DL (1.8-2.4); POTASSIUM SERUM 4.1 MEQ/L (3.5-5.1); SODIUM LEVEL 143 MEQ/L (136-145)
[2021-12-02 07:50] VITALS: BP 142/93
[2021-12-02] MEDS: FLUTICASONE HFA 220 MCG 12 GM INHALER (FLOVENT) INH SCH ×2 (07:54→19:48)
[2021-12-02] MEDS ORDERED: methylPREDNISolone 125MG 2ML VIAL IV ONE (09:00)
[2021-12-02] MEDS: LOSARTAN 50MG TABLET PO SCH (09:24)
[2021-12-02] MEDS: APIXABAN 5 MG TAB (ELIQUIS) PO SCH ×2 (09:26→21:27)
[2021-12-02] MEDS: DOCUSATE SODIUM 100MG CAPSULE PO SCH ×2 (09:26→21:00)
[2021-12-02] MEDS: ASPIRIN 81MG ENTERIC TABLET PO SCH (09:26)
[2021-12-02] MEDS: CETIRIZINE (ZyrTEC) 10 MG TAB PO SCH (09:26)
[2021-12-02] MEDS: DOXYCYCLINE HYCLATE 100MG TABLET PO SCH (09:27)
[2021-12-02 09:36] LABS: ABG BASE EXCESS 3.9 (-2.0-2.0); ABG HCO3 30.9 MEQ/L (22.0-26.0); ABG O2 SATURATION 95.7 % (95.0-99.0); ABG PARTIAL PRESSURE CO2 55.7 mmHg (35.0-45.0); ABG PARTIAL PRESSURE O2 82.4 mmHg (75.0-100.0); ABG STANDARD HCO3 27.9 MEQ/L (22.0-26.0); ABG TOTAL CO2 32.6 MEQ/L (22.0-29.0); ABG pH (ARTERIAL) 7.362 UNITS (7.350-7.450)
[2021-12-02 11:31] VITALS: O2SAT 94
[2021-12-02 14:00] VITALS: BP 123/86
[2021-12-02 21:00] VITALS: BP 125/87
[2021-12-02] MEDS: guaiFENesin DM LIQ 10ML UD PO PRN (21:27)
[2021-12-03] MEDS: IPRATROPIUM 0.5MG/ALBUTEROL 2.5MG INH SOL UD 3ML (DUONEB) NEB SCH ×5 (03:19→19:45)
[2021-12-03] MEDS: methylPREDNISolone 125MG 2ML VIAL IV SCH ×4 (05:04→21:06)
[2021-12-03 06:00] VITALS: BP 128/86
[2021-12-03 07:14] LABS: HEMATOCRIT 46.5 % (42.0-52.0); HEMOGLOBIN 14.6 g/dl (13.5-17.5); MEAN CORPUSCULAR HEMOGLOBIN 26.5 pg (27.0-33.0); MEAN CORPUSCULAR HGB CONC 31.4 g/dl (32.0-36.5); MEAN CORPUSCULAR VOLUME 84.5 fl (80.0-96.0); PLATELET COUNT, AUTOMATED 242 10^3/uL (150-450)
[2021-12-03 07:31] LABS: BLOOD UREA NITROGEN 36 MG/DL (7-18); CALCIUM LEVEL 8.9 MG/DL (8.5-10.1); CARBON DIOXIDE LEVEL 33 MEQ/L (21-32); CHLORIDE LEVEL 104 MEQ/L (98-107); CREATININE FOR GFR 1.18 MG/DL (0.70-1.30); GLOMERULAR FILTRATION RATE > 60.0 (>56); GLUCOSE, FASTING 137 MG/DL (70-100); MAGNESIUM LEVEL 2.3 MG/DL (1.8-2.4); POTASSIUM SERUM 4.1 MEQ/L (3.5-5.1); SODIUM LEVEL 143 MEQ/L (136-145)
[2021-12-03] MEDS: FLUTICASONE HFA 220 MCG 12 GM INHALER (FLOVENT) INH SCH ×2 (07:49→19:45)
[2021-12-03] MEDS: APIXABAN 5 MG TAB (ELIQUIS) PO SCH ×2 (09:57→21:05)
[2021-12-03] MEDS: ASPIRIN 81MG ENTERIC TABLET PO SCH (09:57)
[2021-12-03] MEDS: CETIRIZINE (ZyrTEC) 10 MG TAB PO SCH (09:58)
[2021-12-03] MEDS: DOCUSATE SODIUM 100MG CAPSULE PO SCH ×3 (09:58→21:00)
[2021-12-03] MEDS: LOSARTAN 50MG TABLET PO SCH (09:59)
[2021-12-03 14:00] VITALS: BP 157/99
[2021-12-03 15:11] VITALS: O2SAT 93
[2021-12-03 21:02] VITALS: BP 150/90
[2021-12-03] MEDS: hydrOXYzine 10 MG TAB PO PRN (23:44)
[2021-12-04 02:00] VITALS: O2SAT 94
[2021-12-04] MEDS: methylPREDNISolone 125MG 2ML VIAL IV SCH ×4 (04:39→22:50)
[2021-12-04] MEDS: IPRATROPIUM 0.5MG/ALBUTEROL 2.5MG INH SOL UD 3ML (DUONEB) NEB SCH ×7 (05:23→23:10)
[2021-12-04 05:42] VITALS: BP 135/88
[2021-12-04 07:14] LABS: HEMATOCRIT 43.5 % (42.0-52.0); HEMOGLOBIN 13.8 g/dl (13.5-17.5); MEAN CORPUSCULAR HEMOGLOBIN 26.1 pg (27.0-33.0); MEAN CORPUSCULAR HGB CONC 31.7 g/dl (32.0-36.5); MEAN CORPUSCULAR VOLUME 82.4 fl (80.0-96.0); PLATELET COUNT, AUTOMATED 214 10^3/uL (150-450); RED BLOOD COUNT 5.28 10^6/uL (4.30-6.10); WHITE BLOOD COUNT 10.8 10^3/uL (4.0-10.0)
[2021-12-04 07:30] LABS: BLOOD UREA NITROGEN 38 MG/DL (7-18); CALCIUM LEVEL 8.6 MG/DL (8.5-10.1); CARBON DIOXIDE LEVEL 32 MEQ/L (21-32); CHLORIDE LEVEL 104 MEQ/L (98-107); CREATININE FOR GFR 1.05 MG/DL (0.70-1.30); GLOMERULAR FILTRATION RATE > 60.0 (>56); GLUCOSE, FASTING 118 MG/DL (70-100); MAGNESIUM LEVEL 2.3 MG/DL (1.8-2.4); PHOSPHORUS LEVEL 4.1 MG/DL (2.5-4.9); SODIUM LEVEL 144 MEQ/L (136-145)
[2021-12-04] MEDS: FLUTICASONE HFA 220 MCG 12 GM INHALER (FLOVENT) INH SCH ×2 (07:36→19:23)
[2021-12-04] MEDS: DOCUSATE SODIUM 100MG CAPSULE PO SCH ×2 (09:00→21:00)
[2021-12-04 09:45] VITALS: O2SAT 94
[2021-12-04] MEDS: guaiFENesin DM LIQ 10ML UD PO PRN ×3 (09:53→22:50)
[2021-12-04] MEDS: ASPIRIN 81MG ENTERIC TABLET PO SCH (09:54)
[2021-12-04] MEDS: APIXABAN 5 MG TAB (ELIQUIS) PO SCH ×2 (09:54→22:50)
[2021-12-04] MEDS: CETIRIZINE (ZyrTEC) 10 MG TAB PO SCH (09:54)
[2021-12-04] MEDS: LOSARTAN 50MG TABLET PO SCH (09:55)
[2021-12-04 14:00] VITALS: BP 161/93
[2021-12-04 22:00] VITALS: BP 147/92
[2021-12-04] MEDS: hydrOXYzine 10 MG TAB PO PRN (22:49)
[2021-12-05] MEDS: IPRATROPIUM 0.5MG/ALBUTEROL 2.5MG INH SOL UD 3ML (DUONEB) NEB SCH ×5 (03:17→19:46)
[2021-12-05] MEDS: methylPREDNISolone 125MG 2ML VIAL IV SCH ×3 (05:10→18:07)
[2021-12-05 06:00] VITALS: BP 135/80
[2021-12-05 06:59] LABS: HEMATOCRIT 46.3 % (42.0-52.0); HEMOGLOBIN 14.7 g/dl (13.5-17.5); MEAN CORPUSCULAR HEMOGLOBIN 26.3 pg (27.0-33.0); MEAN CORPUSCULAR HGB CONC 31.7 g/dl (32.0-36.5); PLATELET COUNT, AUTOMATED 226 10^3/uL (150-450); RED BLOOD COUNT 5.58 10^6/uL (4.30-6.10); WHITE BLOOD COUNT 11.4 10^3/uL (4.0-10.0)
[2021-12-05 07:29] LABS: BLOOD UREA NITROGEN 39 MG/DL (7-18); CALCIUM LEVEL 8.8 MG/DL (8.5-10.1); CARBON DIOXIDE LEVEL 35 MEQ/L (21-32); CHLORIDE LEVEL 103 MEQ/L (98-107); CREATININE FOR GFR 1.11 MG/DL (0.70-1.30); GLOMERULAR FILTRATION RATE > 60.0 (>56); GLUCOSE, FASTING 119 MG/DL (70-100); MAGNESIUM LEVEL 2.5 MG/DL (1.8-2.4); PHOSPHORUS LEVEL 4.6 MG/DL (2.5-4.9); POTASSIUM SERUM 3.8 MEQ/L (3.5-5.1); SODIUM LEVEL 142 MEQ/L (136-145)
[2021-12-05 09:00] VITALS: O2SAT 93
[2021-12-05] MEDS: DOCUSATE SODIUM 100MG CAPSULE PO SCH ×2 (09:00→22:23)
[2021-12-05] MEDS: ASPIRIN 81MG ENTERIC TABLET PO SCH (10:35)
[2021-12-05] MEDS: LOSARTAN 50MG TABLET PO SCH (10:35)
[2021-12-05] MEDS: CETIRIZINE (ZyrTEC) 10 MG TAB PO SCH (10:35)
[2021-12-05] MEDS: APIXABAN 5 MG TAB (ELIQUIS) PO SCH ×2 (10:35→22:22)
[2021-12-05] MEDS: hydrOXYzine 10 MG TAB PO PRN ×2 (10:41→22:23)
[2021-12-05] MEDS: FLUTICASONE HFA 220 MCG 12 GM INHALER (FLOVENT) INH SCH ×2 (11:16→19:45)
[2021-12-05 14:00] VITALS: BP_SYST 162; BP_SYST 163; BP_DIAS 100; BP_DIAS 90
[2021-12-05 21:00] VITALS: BP 132/90
[2021-12-05 22:00] VITALS: BP 155/78
[2021-12-06] MEDS: methylPREDNISolone 125MG 2ML VIAL IV SCH ×3 (02:59→18:03)
[2021-12-06 03:34] VITALS: O2SAT 94
[2021-12-06] MEDS: IPRATROPIUM 0.5MG/ALBUTEROL 2.5MG INH SOL UD 3ML (DUONEB) NEB SCH ×7 (04:00→23:43)
[2021-12-06 06:00] VITALS: BP 154/94
[2021-12-06 06:56] LABS: HEMATOCRIT 46.5 % (42.0-52.0); HEMOGLOBIN 14.7 g/dl (13.5-17.5); MEAN CORPUSCULAR HEMOGLOBIN 26.1 pg (27.0-33.0); MEAN CORPUSCULAR HGB CONC 31.6 g/dl (32.0-36.5); MEAN CORPUSCULAR VOLUME 82.4 fl (80.0-96.0); PLATELET COUNT, AUTOMATED 223 10^3/uL (150-450); RED BLOOD COUNT 5.64 10^6/uL (4.30-6.10); WHITE BLOOD COUNT 13.2 10^3/uL (4.0-10.0)
[2021-12-06 07:20] LABS: BLOOD UREA NITROGEN 38 MG/DL (7-18); CALCIUM LEVEL 8.5 MG/DL (8.5-10.1); CARBON DIOXIDE LEVEL 34 MEQ/L (21-32); CHLORIDE LEVEL 102 MEQ/L (98-107); CREATININE FOR GFR 1.15 MG/DL (0.70-1.30); GLOMERULAR FILTRATION RATE > 60.0 (>56); GLUCOSE, FASTING 105 MG/DL (70-100); MAGNESIUM LEVEL 2.3 MG/DL (1.8-2.4); PHOSPHORUS LEVEL 3.9 MG/DL (2.5-4.9); SODIUM LEVEL 142 MEQ/L (136-145)
[2021-12-06] MEDS: FLUTICASONE HFA 220 MCG 12 GM INHALER (FLOVENT) INH SCH ×2 (07:38→20:04)
[2021-12-06] MEDS: DOCUSATE SODIUM 100MG CAPSULE PO SCH ×3 (09:00→20:53)
[2021-12-06] MEDS: CETIRIZINE (ZyrTEC) 10 MG TAB PO SCH (09:32)
[2021-12-06] MEDS: hydrOXYzine 10 MG TAB PO PRN ×2 (09:32→17:11)
[2021-12-06] MEDS: ASPIRIN 81MG ENTERIC TABLET PO SCH (09:33)
[2021-12-06] MEDS: APIXABAN 5 MG TAB (ELIQUIS) PO SCH ×2 (09:33→20:53)
[2021-12-06] MEDS: LOSARTAN 50MG TABLET PO SCH (09:37)
[2021-12-06 09:39] VITALS: O2SAT 92
[2021-12-06 15:00] VITALS: BP_SYST 119; BP_SYST 156; BP_DIAS 55; BP_DIAS 94
[2021-12-06 21:00] VITALS: O2SAT 94
[2021-12-06] MEDS: guaiFENesin DM LIQ 10ML UD PO PRN (21:49)
[2021-12-06 22:00] VITALS: BP 130/75
[2021-12-07] MEDS: methylPREDNISolone 125MG 2ML VIAL IV SCH ×3 (02:45→17:20)
[2021-12-07] MEDS: guaiFENesin DM LIQ 10ML UD PO PRN ×2 (02:48→09:55)
[2021-12-07] MEDS: hydrOXYzine 10 MG TAB PO PRN ×3 (02:48→22:04)
[2021-12-07] MEDS: IPRATROPIUM 0.5MG/ALBUTEROL 2.5MG INH SOL UD 3ML (DUONEB) NEB SCH ×7 (03:37→23:40)
[2021-12-07 06:00] VITALS: BP 125/75
[2021-12-07 06:02] LABS: HEMATOCRIT 50.7 % (42.0-52.0); HEMOGLOBIN 16.3 g/dl (13.5-17.5); MEAN CORPUSCULAR HEMOGLOBIN 26.4 pg (27.0-33.0); MEAN CORPUSCULAR HGB CONC 32.1 g/dl (32.0-36.5); PLATELET COUNT, AUTOMATED 248 10^3/uL (150-450); RED BLOOD COUNT 6.18 10^6/uL (4.30-6.10); WHITE BLOOD COUNT 15.6 10^3/uL (4.0-10.0)
[2021-12-07 06:32] LABS: BLOOD UREA NITROGEN 43 MG/DL (7-18); CALCIUM LEVEL 8.8 MG/DL (8.5-10.1); CARBON DIOXIDE LEVEL 33 MEQ/L (21-32); CHLORIDE LEVEL 100 MEQ/L (98-107); CREATININE FOR GFR 1.18 MG/DL (0.70-1.30); GLOMERULAR FILTRATION RATE > 60.0 (>56); GLUCOSE, FASTING 136 MG/DL (70-100); MAGNESIUM LEVEL 2.6 MG/DL (1.8-2.4); PHOSPHORUS LEVEL 4.4 MG/DL (2.5-4.9); POTASSIUM SERUM 3.9 MEQ/L (3.5-5.1); SODIUM LEVEL 142 MEQ/L (136-145)
[2021-12-07] MEDS: FLUTICASONE HFA 220 MCG 12 GM INHALER (FLOVENT) INH SCH ×2 (07:17→20:29)
[2021-12-07 09:00] VITALS: O2SAT 93
[2021-12-07] MEDS: CETIRIZINE (ZyrTEC) 10 MG TAB PO SCH (09:55)
[2021-12-07] MEDS: APIXABAN 5 MG TAB (ELIQUIS) PO SCH ×2 (09:55→21:39)
[2021-12-07] MEDS: ASPIRIN 81MG ENTERIC TABLET PO SCH (09:56)
[2021-12-07] MEDS: DOCUSATE SODIUM 100MG CAPSULE PO SCH ×2 (09:56→21:00)
[2021-12-07] MEDS: LOSARTAN 50MG TABLET PO SCH (09:58)
[2021-12-07] MEDS ORDERED: BENZONATATE 100MG CAPSULE PO PRN (10:40)
[2021-12-07] MEDS: DORNASE INHALATION SOLN 1 MG/ML 2.5 ML AMP INH SCH ×2 (11:12→20:00)
[2021-12-07 14:00] VITALS: BP 140/75
[2021-12-07 21:00] VITALS: O2SAT 94
[2021-12-07 21:21] VITALS: BP 145/89
[2021-12-08] MEDS: methylPREDNISolone 125MG 2ML VIAL IV SCH ×3 (01:15→18:12)
[2021-12-08] MEDS: IPRATROPIUM 0.5MG/ALBUTEROL 2.5MG INH SOL UD 3ML (DUONEB) NEB SCH ×5 (04:00→20:00)
[2021-12-08 06:00] VITALS: BP 127/67
[2021-12-08] MEDS: FLUTICASONE HFA 220 MCG 12 GM INHALER (FLOVENT) INH SCH ×2 (07:59→20:35)
[2021-12-08] MEDS: DORNASE INHALATION SOLN 1 MG/ML 2.5 ML AMP INH SCH ×2 (07:59→20:00)
[2021-12-08] MEDS: APIXABAN 5 MG TAB (ELIQUIS) PO SCH ×2 (09:50→20:23)
[2021-12-08] MEDS: CETIRIZINE (ZyrTEC) 10 MG TAB PO SCH (09:50)
[2021-12-08] MEDS: LOSARTAN 50MG TABLET PO SCH (09:50)
[2021-12-08] MEDS: DOCUSATE SODIUM 100MG CAPSULE PO SCH ×2 (09:50→20:23)
[2021-12-08] MEDS: ASPIRIN 81MG ENTERIC TABLET PO SCH (09:50)
[2021-12-08 10:28] LABS: BLOOD UREA NITROGEN 40 MG/DL (7-18); CALCIUM LEVEL 8.4 MG/DL (8.5-10.1); CARBON DIOXIDE LEVEL 31 MEQ/L (21-32); CHLORIDE LEVEL 105 MEQ/L (98-107); CREATININE FOR GFR 1.05 MG/DL (0.70-1.30); GLOMERULAR FILTRATION RATE > 60.0 (>56); GLUCOSE, FASTING 111 MG/DL (70-100); MAGNESIUM LEVEL 2.5 MG/DL (1.8-2.4); PHOSPHORUS LEVEL 4.6 MG/DL (2.5-4.9); SODIUM LEVEL 145 MEQ/L (136-145)
[2021-12-08] MEDS ORDERED: FUROSEMIDE 20MG/2ML VIAL (J1940) IV ONE (12:00)
[2021-12-08 14:00] VITALS: BP 130/75
[2021-12-08] MEDS: hydrOXYzine 10 MG TAB PO PRN (20:23)
[2021-12-08] MEDS: MONTELUKAST 10 MG TAB PO SCH (20:27)
[2021-12-08 21:00] VITALS: O2SAT 95
[2021-12-08 22:00] VITALS: BP 149/95
[2021-12-09] MEDS: methylPREDNISolone 125MG 2ML VIAL IV SCH ×2 (02:10→14:07)
[2021-12-09] MEDS: IPRATROPIUM 0.5MG/ALBUTEROL 2.5MG INH SOL UD 3ML (DUONEB) NEB SCH ×6 (03:44→20:00)
[2021-12-09 06:00] VITALS: BP 126/77
[2021-12-09 06:47] LABS: HEMATOCRIT 46.2 % (42.0-52.0); HEMOGLOBIN 15.2 g/dl (13.5-17.5); MEAN CORPUSCULAR HEMOGLOBIN 26.4 pg (27.0-33.0); MEAN CORPUSCULAR HGB CONC 32.9 g/dl (32.0-36.5); MEAN CORPUSCULAR VOLUME 80.2 fl (80.0-96.0); PLATELET COUNT, AUTOMATED 201 10^3/uL (150-450); RED BLOOD COUNT 5.76 10^6/uL (4.30-6.10); WHITE BLOOD COUNT 16.7 10^3/uL (4.0-10.0)
[2021-12-09 07:02] LABS: BLOOD UREA NITROGEN 40 MG/DL (7-18); CALCIUM LEVEL 8.5 MG/DL (8.5-10.1); CARBON DIOXIDE LEVEL 34 MEQ/L (21-32); CHLORIDE LEVEL 103 MEQ/L (98-107); CREATININE FOR GFR 1.11 MG/DL (0.70-1.30); GLOMERULAR FILTRATION RATE > 60.0 (>56); GLUCOSE, FASTING 101 MG/DL (70-100); MAGNESIUM LEVEL 2.4 MG/DL (1.8-2.4); PHOSPHORUS LEVEL 4.3 MG/DL (2.5-4.9); SODIUM LEVEL 141 MEQ/L (136-145)
[2021-12-09] MEDS: DORNASE INHALATION SOLN 1 MG/ML 2.5 ML AMP INH SCH ×2 (07:33→20:00)
[2021-12-09] MEDS: FLUTICASONE HFA 220 MCG 12 GM INHALER (FLOVENT) INH SCH ×2 (07:33→20:44)
[2021-12-09] MEDS: LOSARTAN 50MG TABLET PO SCH (08:41)
[2021-12-09] MEDS: DOCUSATE SODIUM 100MG CAPSULE PO SCH ×2 (08:41→19:45)
[2021-12-09] MEDS: CETIRIZINE (ZyrTEC) 10 MG TAB PO SCH (08:42)
[2021-12-09] MEDS: ASPIRIN 81MG ENTERIC TABLET PO SCH (08:42)
[2021-12-09] MEDS: APIXABAN 5 MG TAB (ELIQUIS) PO SCH ×3 (08:42→19:54)
[2021-12-09] MEDS ORDERED: FUROSEMIDE 20MG/2ML VIAL (J1940) IV ONE (12:00)
[2021-12-09] MEDS: hydrOXYzine 10 MG TAB PO PRN (14:07)
[2021-12-09] MEDS: MONTELUKAST 10 MG TAB PO SCH (19:45)
[2021-12-09 20:45] VITALS: BP 160/95
[2021-12-09] MEDS ORDERED: RAMELTEON 8 MG TAB (ROZEREM) PO PRN (21:55)
[2021-12-09 22:00] VITALS: BP_SYST 160; BP_SYST 162; BP_DIAS 95; BP_DIAS 97
[2021-12-09 22:41] VITALS: O2SAT 96
[2021-12-09 22:46] VITALS: BP 150/68
[2021-12-10] MEDS: hydrOXYzine 10 MG TAB PO PRN (02:31)
[2021-12-10] MEDS: methylPREDNISolone 125MG 2ML VIAL IV SCH ×2 (02:32→14:40)
[2021-12-10] MEDS: IPRATROPIUM 0.5MG/ALBUTEROL 2.5MG INH SOL UD 3ML (DUONEB) NEB SCH ×6 (04:00→19:35)
[2021-12-10 06:00] VITALS: BP 150/90
[2021-12-10] MEDS: DORNASE INHALATION SOLN 1 MG/ML 2.5 ML AMP INH SCH ×2 (06:18→19:36)
[2021-12-10] MEDS: FLUTICASONE HFA 220 MCG 12 GM INHALER (FLOVENT) INH SCH ×2 (06:19→19:36)
[2021-12-10 07:08] LABS: BASO # 0.1 10^3/uL (0.0-0.2); BASO % 0.4 % (0.0-1.0); EOS % 0.2 % (0.0-3.0); HEMATOCRIT 46.1 % (42.0-52.0); HEMOGLOBIN 14.9 g/dl (13.5-17.5); LYMPH # 1.2 10^3/uL (1.5-5.0); LYMPH % 6.6 % (24.0-44.0); MEAN CORPUSCULAR HEMOGLOBIN 26.3 pg (27.0-33.0); MEAN CORPUSCULAR HGB CONC 32.3 g/dl (32.0-36.5); MEAN CORPUSCULAR VOLUME 81.4 fl (80.0-96.0); MONO # 0.7 10^3/uL (0.0-0.8); MONO % 3.5 % (2.0-8.0); NEUTROPHILS # 15.7 10^3/uL (1.5-8.5); NEUTROPHILS % 84.7 % (36.0-66.0); PLATELET COUNT, AUTOMATED 206 10^3/uL (150-450); RED BLOOD COUNT 5.66 10^6/uL (4.30-6.10); WHITE BLOOD COUNT 18.5 10^3/uL (4.0-10.0)
[2021-12-10] MEDS: DOCUSATE SODIUM 100MG CAPSULE PO SCH ×2 (08:27→21:00)
[2021-12-10] MEDS: LOSARTAN 50MG TABLET PO SCH (08:28)
[2021-12-10] MEDS: APIXABAN 5 MG TAB (ELIQUIS) PO SCH ×2 (08:28→21:17)
[2021-12-10] MEDS: CETIRIZINE (ZyrTEC) 10 MG TAB PO SCH (08:28)
[2021-12-10] MEDS: ASPIRIN 81MG ENTERIC TABLET PO SCH (08:28)
[2021-12-10 13:30] LABS: BLOOD UREA NITROGEN 42 MG/DL (7-18); CALCIUM LEVEL 8.4 MG/DL (8.5-10.1); CARBON DIOXIDE LEVEL 37 MEQ/L (21-32); CHLORIDE LEVEL 104 MEQ/L (98-107); CREATININE FOR GFR 1.06 MG/DL (0.70-1.30); GLOMERULAR FILTRATION RATE > 60.0 (>56); GLUCOSE, FASTING 105 MG/DL (70-100); MAGNESIUM LEVEL 2.3 MG/DL (1.8-2.4); PHOSPHORUS LEVEL 3.7 MG/DL (2.5-4.9); POTASSIUM SERUM 3.9 MEQ/L (3.5-5.1); SODIUM LEVEL 144 MEQ/L (136-145)
[2021-12-10] MEDS ORDERED: MIRALAX *UNIT DOSE* 17GM PACKET PO ONE (15:20)
[2021-12-10 15:30] VITALS: BP 160/100
[2021-12-10] MEDS ORDERED: amLODIPine 5 MG TAB PO ONE (15:35)
[2021-12-10 16:48] VITALS: BP 150/96
[2021-12-10 17:50] VITALS: BP 144/92
[2021-12-10 21:01] VITALS: BP 148/90
[2021-12-10 21:14] VITALS: O2SAT 91
[2021-12-10] MEDS: MONTELUKAST 10 MG TAB PO SCH (21:17)
[2021-12-11] MEDS: IPRATROPIUM 0.5MG/ALBUTEROL 2.5MG INH SOL UD 3ML (DUONEB) NEB SCH ×4 (04:00→11:29)
[2021-12-11 06:00] VITALS: BP 128/83
[2021-12-11] MEDS: DORNASE INHALATION SOLN 1 MG/ML 2.5 ML AMP INH SCH (08:00)
[2021-12-11 08:23] VITALS: BP 130/84
[2021-12-11] MEDS: LOSARTAN 50MG TABLET PO SCH (08:23)
[2021-12-11] MEDS: CETIRIZINE (ZyrTEC) 10 MG TAB PO SCH (08:23)
[2021-12-11] MEDS: APIXABAN 5 MG TAB (ELIQUIS) PO SCH (08:23)
[2021-12-11] MEDS: ASPIRIN 81MG ENTERIC TABLET PO SCH (08:23)
[2021-12-11] MEDS: DOCUSATE SODIUM 100MG CAPSULE PO SCH (08:24)
[2021-12-11] MEDS ORDERED: PRED10TA2 PO (08:37)
[2021-12-11] MEDS ORDERED: AMLO1TAB24 PO (08:37)
[2021-12-11] MEDS ORDERED: amLODIPine 5 MG TAB PO SCH (09:00)
[2021-12-11] MEDS ORDERED: predniSONE 20 MG TAB PO SCH (09:00)
[2021-12-11] MEDS: FLUTICASONE HFA 220 MCG 12 GM INHALER (FLOVENT) INH SCH (11:28)
[2021-12-11 14:00] VITALS: BP 133/72
== END 2021-12-11 15:11 | disposition home or self-care (01) | DRG 140 ==
LOC: EDBD 20:15 → M ED 20:15 → M ED INP 23:25 → ENRESERV 11-30 14:45 → M MSPAV 11-30 16:15
PROVIDERS: ADMIT Family Medicine; ATTEND Family Medicine
DX: J44.1 Chronic obstructive pulmonary disease with (acute) exacerbation (principal); U07.1 COVID-19; J96.11 Chronic respiratory failure with hypoxia; I10 Essential (primary) hypertension; Z86.73 Personal history of transient ischemic attack (TIA), and cerebral infarction without residual deficits; F17.200 Nicotine dependence, unspecified, uncomplicated; Z86.718 Personal history of other venous thrombosis and embolism; Z79.82 Long term (current) use of aspirin; Z79.899 Other long term (current) drug therapy; Z88.5 Allergy status to narcotic agent

== ENCOUNTER → 2022-06-15 | Outpatient (RCR) | payer OTHER ==
[~2022-06-15] MED LIST changes: +AMLO1TAB24 PO; +ASPI-161 PO; +CETI-25 PO; +IPRA0.00 INH
== END ==
LOC: M PT 12:01
PROVIDERS: ATTEND Student in an Organized Health Care Education/Training Program
DX: M25.511 Pain in right shoulder (principal)

== ENCOUNTER 2022-07-06 12:46 | Outpatient (RCR) | payer OTHER | END 2022-07-15 | LOC: M PT 12:46 | PROVIDERS: ATTEND Student in an Organized Health Care Education/Training Program | DX: M25.511 Pain in right shoulder (principal) ==

== ENCOUNTER 2022-07-17 12:57 | Inpatient (IN) | payer OTHER ==
[2022-07-17] MEDS ORDERED: methylPREDNISolone 125MG 2ML VIAL IV ONE (13:10)
[2022-07-17 13:28] LABS: VENOUS BASE EXCESS 3.7 (-2.0-2.0); VENOUS HCO3 30.9 MEQ/L (23.0-27.0); VENOUS O2 SATURATION 67.4 % (60.0-80.0); VENOUS PARTIAL PRESSURE CO2 55.5 mmHg (38.0-50.0); VENOUS PH 7.363 UNITS (7.330-7.430); VENOUS STANDARD HCO3 26.8 MEQ/L; VENOUS TOTAL CO2 32.6 MEQ/L (24.0-28.0)
[2022-07-17] MEDS: COMBIVENT RESPIMAT 100-20MCG INHALER 4GM INH SCH ×3 (13:36→14:02)
[2022-07-17 13:37] LABS: BASO % 0.2 % (0.0-1.0); EOS % 0.1 % (0.0-3.0); HEMATOCRIT 48.8 % (42.0-52.0); HEMOGLOBIN 15.8 g/dl (13.5-17.5); LYMPH # 0.9 10^3/uL (1.5-5.0); LYMPH % 11.6 % (24.0-44.0); MEAN CORPUSCULAR HGB CONC 32.4 g/dl (32.0-36.5); MEAN CORPUSCULAR VOLUME 80.4 fl (80.0-96.0); MONO % 12.6 % (2.0-8.0); NEUTROPHILS # 6.1 10^3/uL (1.5-8.5); NEUTROPHILS % 75.1 % (36.0-66.0); PLATELET COUNT, AUTOMATED 218 10^3/uL (150-450); RED BLOOD COUNT 6.07 10^6/uL (4.30-6.10); WHITE BLOOD COUNT 8.1 10^3/uL (4.0-10.0)
[2022-07-17 14:24] LABS: ALBUMIN 3.5 GM/DL (3.2-5.2); BILIRUBIN,DIRECT 0.3 MG/DL (0.0-0.2); BILIRUBIN,TOTAL 1.1 MG/DL (0.2-1.0); CALCIUM LEVEL 8.9 MG/DL (8.5-10.1); CREATININE FOR GFR 1.31 MG/DL (0.70-1.30); GLOMERULAR FILTRATION RATE 59.6 (>56); POTASSIUM SERUM 3.6 MEQ/L (3.5-5.1); THYROID STIMULATING HORMONE 1.03 uIU/ML (0.358-3.740); TOTAL PROTEIN 7.1 GM/DL (6.4-8.2)
[2022-07-17] MEDS ORDERED: AMLO1TAB24 PO (15:41)
[2022-07-17] MEDS ORDERED: HOME MED LIST COMPLETE! XX SCH (15:45)
[2022-07-17] MEDS ORDERED: AZITHROMYCIN INJ 500 MG, VIAL MATE ADAPTER 1 EACH in NS 250 ML IV SCH (16:00)
[2022-07-17] MEDS ORDERED: LR 500 ML IV ONE (16:30)
[2022-07-17] MEDS ORDERED: cefTRIAXone SOD 1 GM in D5W MINI-BAG PLUS 50 ML IV SCH (17:00)
[2022-07-17 17:28] VITALS: BP 90/57
[2022-07-17] MEDS: PANTOPRAZOLE 40MG TAB (PROTONIX) PO SCH (18:27)
[2022-07-17 19:15] VITALS: BP 112/97
[2022-07-17] MEDS: FLUTICASONE HFA 220 MCG 12 GM INHALER (FLOVENT) INH SCH (19:16)
[2022-07-17] MEDS: IPRATROPIUM 0.5MG/ALBUTEROL 2.5MG INH SOL UD 3ML (DUONEB) NEB SCH (19:16)
[2022-07-17 19:45] VITALS: BP 132/74
[2022-07-17] MEDS: methylPREDNISolone 125MG 2ML VIAL IV SCH (19:50)
[2022-07-17] MEDS: APIXABAN 5 MG TAB (ELIQUIS) PO SCH (19:50)
[2022-07-17] MEDS ORDERED: COMBIVENT RESPIMAT 100-20MCG INHALER 4GM INH SCH (20:00)
[2022-07-18] VITALS: BP 96/60
[2022-07-18] MEDS: IPRATROPIUM 0.5MG/ALBUTEROL 2.5MG INH SOL UD 3ML (DUONEB) NEB SCH ×4 (02:19→19:23)
[2022-07-18 04:00] VITALS: BP 105/71
[2022-07-18 05:38] LABS: MEAN CORPUSCULAR HEMOGLOBIN 25.7 pg (27.0-33.0); MEAN CORPUSCULAR HGB CONC 31.3 g/dl (32.0-36.5); MEAN CORPUSCULAR VOLUME 82.2 fl (80.0-96.0); PLATELET COUNT, AUTOMATED 226 10^3/uL (150-450); RED BLOOD COUNT 5.84 10^6/uL (4.30-6.10); WHITE BLOOD COUNT 5.9 10^3/uL (4.0-10.0)
[2022-07-18] MEDS: methylPREDNISolone 125MG 2ML VIAL IV SCH ×2 (05:44→20:10)
[2022-07-18 06:23] LABS: CALCIUM LEVEL 8.8 MG/DL (8.5-10.1); CREATININE FOR GFR 1.85 MG/DL (0.70-1.30); POTASSIUM SERUM 3.2 MEQ/L (3.5-5.1)
[2022-07-18] MEDS ORDERED: POTASSIUM CHLORIDE 10MEQ SR TABLET PO ONE (07:20)
[2022-07-18 08:00] VITALS: BP 121/77
[2022-07-18] MEDS: FLUTICASONE HFA 220 MCG 12 GM INHALER (FLOVENT) INH SCH ×2 (08:24→19:23)
[2022-07-18] MEDS ORDERED: LOSARTAN 50MG TABLET PO SCH (09:00)
[2022-07-18] MEDS: APIXABAN 5 MG TAB (ELIQUIS) PO SCH ×2 (09:07→20:10)
[2022-07-18] MEDS: CETIRIZINE (ZyrTEC) 10 MG TAB PO SCH (09:07)
[2022-07-18] MEDS: PANTOPRAZOLE 40MG TAB (PROTONIX) PO SCH (09:07)
[2022-07-18] MEDS: amLODIPine 5 MG TAB PO SCH (09:08)
[2022-07-18] MEDS: ASPIRIN 81MG ENTERIC TABLET PO SCH (09:08)
[2022-07-18] MEDS ORDERED: LACTATED RINGER'S 1000 ML IV ONE (10:05)
[2022-07-18] MEDS ORDERED: LR 500 ML IV SCH (10:30)
[2022-07-18 10:32] LABS: APPEARANCE, URINE MANUAL CLEAR (CLEAR)
[2022-07-18 10:33] LABS: COLOR, URINE MANUAL YELLOW (YELLOW)
[2022-07-18 10:35] LABS: SPECIFIC GRAVITY,URINE MANUAL 1.015 (1.002-1.035)
[2022-07-18 10:36] LABS: BILIRUBIN, URINE MANUAL NEGATIVE (NEGATIVE); BLOOD URINE MANUAL POSITIVE (NEGATIVE); GLUCOSE, URINE (UA) MANUAL NEGATIVE (NEGATIVE); KETONE, URINE MANUAL NEGATIVE (NEGATIVE); LEUKOCYTE ESTERASE, URINE MAN NEGATIVE (NEGATIVE); NITRITE, URINE MANUAL NEGATIVE (NEGATIVE); PROTEIN, URINE MANUAL 1+ mg/dL (NEGATIVE); UROBILINOGEN, URINE MANUAL NORMAL (NORMAL)
[2022-07-18 10:38] LABS: OSMOLALITY URINE 574 MOSM/KG (50-1400)
[2022-07-18 11:13] LABS: BACTERIA, URINE SMALL AMOUNT; HYALINE CAST, URINE NONE SEEN /lpf (0-1); RBC, URINE 0-1 /hpf (0-3); SQUAMOUS EPITHELIAL CELL URINE SMALL AMOUNT /hpf (SMALL AMT); WBC, URINE 0-1 /hpf (0-3)
[2022-07-18 11:14] LABS: SODIUM,RANDOM URINE < 10 MEQ/L
[2022-07-18 12:00] VITALS: BP 109/64
[2022-07-18] MEDS: TIOTROPIUM INHALER/CAPSULE (SPIRIVA) INH SCH (12:01)
[2022-07-18 15:42] VITALS: BP 125/75
[2022-07-18] MEDS ORDERED: AZITHROMYCIN 250MG TABLET PO SCH (16:00)
[2022-07-18 20:19] VITALS: BP 115/64
[2022-07-19] VITALS: BP 129/71
[2022-07-19] MEDS: IPRATROPIUM 0.5MG/ALBUTEROL 2.5MG INH SOL UD 3ML (DUONEB) NEB SCH ×2 (02:06→08:00)
[2022-07-19 03:50] VITALS: BP 145/83
[2022-07-19 08:00] VITALS: BP 96/70
[2022-07-19] MEDS: TIOTROPIUM INHALER/CAPSULE (SPIRIVA) INH SCH (08:28)
[2022-07-19] MEDS: FLUTICASONE HFA 220 MCG 12 GM INHALER (FLOVENT) INH SCH (08:29)
[2022-07-19 08:31] LABS: CALCIUM LEVEL 8.4 MG/DL (8.5-10.1); CREATININE FOR GFR 1.51 MG/DL (0.70-1.30); GLOMERULAR FILTRATION RATE 50.6 (>56); POTASSIUM SERUM 3.8 MEQ/L (3.5-5.1)
[2022-07-19] MEDS: PANTOPRAZOLE 40MG TAB (PROTONIX) PO SCH (09:17)
[2022-07-19] MEDS: CETIRIZINE (ZyrTEC) 10 MG TAB PO SCH (09:17)
[2022-07-19] MEDS: ASPIRIN 81MG ENTERIC TABLET PO SCH (09:17)
[2022-07-19] MEDS: APIXABAN 5 MG TAB (ELIQUIS) PO SCH (09:17)
[2022-07-19 09:19] VITALS: BP 110/68
[2022-07-19] MEDS: amLODIPine 5 MG TAB PO SCH (09:19)
[2022-07-19] MEDS: methylPREDNISolone 125MG 2ML VIAL IV SCH (09:20)
[2022-07-19] MEDS ORDERED: ALBU8.5H INH (09:42)
[2022-07-19] MEDS ORDERED: CEFP200T PO (09:42)
[2022-07-19] MEDS ORDERED: PRED10TA2 PO (09:42)
[2022-07-19] MEDS ORDERED: IPRA0.00 INH (09:42)
[2022-07-19] MEDS ORDERED: AZIT-12 PO (09:42)
[2022-07-19] MEDS ORDERED: DOXY100T PO (09:42)
[2022-07-19] MEDS ORDERED: ALBU2.5V10 INH (09:42)
[2022-07-19] MEDS ORDERED: AMOX875T2 PO (09:42)
[2022-07-19] MEDS ORDERED: PRED20TA PO (09:42)
[2022-07-19] MEDS ORDERED: CEFD300C41 PO (09:42)
[2022-07-19 12:00] VITALS: BP 111/71
== END 2022-07-19 14:47 | disposition home health service (06) | DRG 137 ==
LOC: M ED 12:57 → M ED INP 15:11 → ENRESERV 15:38 → M PCU 17:15
PROVIDERS: ADMIT Student in an Organized Health Care Education/Training Program; ATTEND Internal Medicine
DX: U07.1 COVID-19 (principal); J96.11 Chronic respiratory failure with hypoxia; N17.9 Acute kidney failure, unspecified; J18.9 Pneumonia, unspecified organism; Z99.81 Dependence on supplemental oxygen; E87.6 Hypokalemia; F17.210 Nicotine dependence, cigarettes, uncomplicated; I10 Essential (primary) hypertension; J30.9 Allergic rhinitis, unspecified; J44.0 Chronic obstructive pulmonary disease with (acute) lower respiratory infection; J44.1 Chronic obstructive pulmonary disease with (acute) exacerbation; Z66 Do not resuscitate; Z86.718 Personal history of other venous thrombosis and embolism; Z79.899 Other long term (current) drug therapy; Z88.5 Allergy status to narcotic agent; Z86.73 Personal history of transient ischemic attack (TIA), and cerebral infarction without residual deficits; Z79.01 Long term (current) use of anticoagulants

== ENCOUNTER → 2022-08-04 | Outpatient (CLI) | payer OTHER ==
[~2022-08-04] MED LIST changes: +ALBU2.5V10 INH; +ALBU8.5H INH; +AMOX875T2 PO; +AZIT-12 PO; +CEFD300C41 PO; +CEFP200T PO; +DOXY100T PO
[2022-08-04 19:25] LABS: BLOOD UREA NITROGEN 17 MG/DL (7-18); CALCIUM LEVEL 9.4 MG/DL (8.5-10.1); CARBON DIOXIDE LEVEL 32 MEQ/L (21-32); CHLORIDE LEVEL 101 MEQ/L (98-107); CREATININE FOR GFR 1.08 MG/DL (0.70-1.30); GLOMERULAR FILTRATION RATE > 60.0 (>56); GLUCOSE, FASTING 85 MG/DL (70-100); POTASSIUM SERUM 3.9 MEQ/L (3.5-5.1); SODIUM LEVEL 138 MEQ/L (136-145)
== END ==
LOC: M PLALAB 15:34
PROVIDERS: ATTEND Student in an Organized Health Care Education/Training Program
DX: F17.200 Nicotine dependence, unspecified, uncomplicated (principal)

== ENCOUNTER 2022-11-10 12:32 | Outpatient (RCR) | payer OTHER ==
[~2022-11-10 12:32] MED LIST changes: -POTA10CA32 PO; +POTA10CA33 PO
== END 2022-11-15 ==
LOC: M PT 12:32
PROVIDERS: ATTEND Internal Medicine
DX: M25.511 Pain in right shoulder (principal)

== ENCOUNTER 2022-12-08 13:52 | Outpatient (RCR) | payer OTHER | END 2022-12-13 | LOC: M PT 13:52 | PROVIDERS: ATTEND Internal Medicine | DX: M25.511 Pain in right shoulder (principal) ==

== ENCOUNTER 2022-12-23 15:15 | Outpatient (RCR) | payer OTHER | END 2023-01-13 | LOC: M PT 15:15 | PROVIDERS: ATTEND Internal Medicine | DX: M25.511 Pain in right shoulder (principal) ==

== ENCOUNTER → 2023-09-05 | Outpatient (CLI) | payer OTHER ==
[~2023-09-05] MED LIST changes: -CEFD300C41; -CEFD300C41 PO; +CEFD300C42; +CEFD300C42 PO; -LOSA100T45 PO; +LOSA100T46 PO; -POTA10CA33 PO; +POTA10CA60 PO
[2023-09-05 16:03] LABS: HEMOGLOBIN 15.3 g/dl (13.5-17.5); MEAN CORPUSCULAR HEMOGLOBIN 26.6 pg (27.0-33.0); MEAN CORPUSCULAR HGB CONC 32.6 g/dl (32.0-36.5); MEAN CORPUSCULAR VOLUME 81.7 fl (80.0-96.0); RED BLOOD COUNT 5.75 10^6/uL (4.30-6.10); WHITE BLOOD COUNT 9.2 10^3/uL (4.0-10.0)
[2023-09-05 16:04] LABS: ALBUMIN 3.9 G/DL (3.2-5.2); ALKALINE PHOSPHATASE 93 U/L (46-116); ALT/SGPT 23 U/L (7.0-40); AST/SGOT 18 U/L (<34); BASO # 0.1 10^3/uL (0.0-0.2); BASO % 0.5 % (0.0-1.0); BILIRUBIN,TOTAL 0.7 MG/DL (0.3-1.2); BLOOD UREA NITROGEN 15 MG/DL (9-23); CALCIUM LEVEL 9.6 MG/DL (8.3-10.6); CARBON DIOXIDE LEVEL 35 MMOL/L (20-31); CHLORIDE LEVEL 106 MMOL/L (98-107); CHOLESTEROL LEVEL 171 MG/DL (<200); CREATININE FOR GFR 1.08 MG/DL (0.70-1.30); EOS # 0.3 10^3/uL (0.0-0.5); EOS % 2.8 % (0.0-3.0); GLOMERULAR FILTRATION RATE > 60.0 (>49); GLUCOSE, FASTING 84 MG/DL (74-106); HDL CHOLESTEROL 50.2 MG/DL (>40); LDL CHOLESTEROL 106.6 MG/DL (<100); LYMPH # 2.2 10^3/uL (1.5-5.0); LYMPH % 24.2 % (24.0-44.0); MONO # 0.8 10^3/uL (0.0-0.8); MONO % 8.1 % (2.0-8.0); NEUTROPHILS # 5.9 10^3/uL (1.5-8.5); NON-HDL-C 120.8 MG/DL; PLATELET COUNT, AUTOMATED 240 10^3/uL (150-450); POTASSIUM SERUM 4.1 MMOL/L (3.5-5.1); SODIUM LEVEL 147 MMOL/L (136-145); TOTAL PROTEIN 6.6 G/DL (5.7-8.2); TRIGLYCERIDES LEVEL 71 MG/DL (<150)
[2023-09-05 17:44] LABS: HEMOGLOBIN A1c 5.4 % (4.0-6.0)
== END ==
LOC: M PLAIMG 12:31
PROVIDERS: ATTEND Student in an Organized Health Care Education/Training Program
DX: M16.0 Bilateral primary osteoarthritis of hip (principal); M25.659 Stiffness of unspecified hip, not elsewhere classified; R10.9 Unspecified abdominal pain; I10 Essential (primary) hypertension; Z13.1 Encounter for screening for diabetes mellitus

== ENCOUNTER → 2024-03-06 | Outpatient (CLI) | payer OTHER ==
[~2024-03-06] MED LIST changes: -ASPI-161 PO; +ASPI-615 PO; +CEFD1CAP9; +CEFD1CAP9 PO; -CEFD300C42; -CEFD300C42 PO; -POTA10CA60 PO; +POTA10CA70 PO
== END ==
LOC: M RAD 13:41
PROVIDERS: ATTEND Student in an Organized Health Care Education/Training Program
DX: Z12.2 Encounter for screening for malignant neoplasm of respiratory organs (principal); R91.1 Solitary pulmonary nodule; Z87.891 Personal history of nicotine dependence

== ENCOUNTER → 2024-05-09 | Outpatient (CLI) | payer OTHER ==
[~2024-05-09] MED LIST changes: +AMLO1TAB25 PO; +FLUT12AE3 INH
[2024-05-09 12:45] LABS: BASO # 0.1 10^3/uL (0.0-0.2); BASO % 0.7 % (0.0-1.0); EOS # 0.2 10^3/uL (0.0-0.5); EOS % 2.5 % (0.0-3.0); HEMATOCRIT 48.7 % (42.0-52.0); HEMOGLOBIN 15.9 g/dl (13.5-17.5); LYMPH # 1.9 10^3/uL (1.5-5.0); LYMPH % 21.1 % (24.0-44.0); MEAN CORPUSCULAR HGB CONC 32.6 g/dl (32.0-36.5); MEAN CORPUSCULAR VOLUME 82.7 fl (80.0-96.0); MONO # 0.8 10^3/uL (0.0-0.8); MONO % 8.9 % (2.0-8.0); NEUTROPHILS # 5.8 10^3/uL (1.5-8.5); NEUTROPHILS % 66.5 % (36.0-66.0); PLATELET COUNT, AUTOMATED 233 10^3/uL (150-450); RED BLOOD COUNT 5.89 10^6/uL (4.30-6.10); WHITE BLOOD COUNT 8.8 10^3/uL (4.0-10.0)
[2024-05-09 13:11] LABS: ALBUMIN 4.2 G/DL (3.2-5.2); ALKALINE PHOSPHATASE 103 U/L (46-116); ALT/SGPT 28 U/L (7.0-40); AST/SGOT 19 U/L (<34); BILIRUBIN,TOTAL 0.8 MG/DL (0.3-1.2); BLOOD UREA NITROGEN 20 MG/DL (9-23); CALCIUM LEVEL 9.9 MG/DL (8.3-10.6); CARBON DIOXIDE LEVEL 32 MMOL/L (20-31); CHLORIDE LEVEL 102 MMOL/L (98-107); CHOLESTEROL LEVEL 169 MG/DL (<200); CHOLESTEROL RISK RATIO 3.53 (<5); CREATININE FOR GFR 1.13 MG/DL (0.70-1.30); FREE T4 1.26 NG/DL (0.89-1.76); GLOMERULAR FILTRATION RATE > 60.0 (>49); GLUCOSE, FASTING 81 MG/DL (74-106); HDL CHOLESTEROL 47.8 MG/DL (>40); NON-HDL-C 121.2 MG/DL; POTASSIUM SERUM 3.9 MMOL/L (3.5-5.1); SODIUM LEVEL 139 MMOL/L (136-145); THYROID STIMULATING HORMONE 1.656 uIU/ML (0.55-4.78); TRIGLYCERIDES LEVEL 91 MG/DL (<150)
== END ==
LOC: M SLEEP HO 04-23 10:13 → M LAB 12:04 → M SLEEP HO 12:04
PROVIDERS: ATTEND Student in an Organized Health Care Education/Training Program
DX: I10 Essential (primary) hypertension (principal); J44.9 Chronic obstructive pulmonary disease, unspecified; G47.9 Sleep disorder, unspecified
CPT/HCPCS: G0399; 84443 ×2; 80053 ×2; 84439 ×2; 80061 ×2; 85025 ×2; 36415 ×2

== ENCOUNTER 2024-05-19 07:46 | Inpatient (IN) | payer MEDICARE, OTHER, MEDICAID ==
[~2024-05-19] VITALS: Ht 180.3 cm; Wt 109.1 kg
[2024-05-19] VITALS (11 sets, daily range): BP systolic 106–114; BP diastolic 67–71; TEMP 97.3–97.9; O2SAT 88–97
[~2024-05-19 07:46] MED LIST changes: -AMLO1TAB25 PO; -FLUT12AE3 INH
[2024-05-19 08:39] LABS: BASO # 0.1 10^3/uL (0.0-0.2); BASO % 0.4 % (0.0-1.0); EOS # 0.1 10^3/uL (0.0-0.5); EOS % 0.4 % (0.0-3.0); HEMATOCRIT 46.1 % (42.0-52.0); HEMOGLOBIN 15.3 g/dl (13.5-17.5); LYMPH # 1.3 10^3/uL (1.5-5.0); MEAN CORPUSCULAR HEMOGLOBIN 26.6 pg (27.0-33.0); MEAN CORPUSCULAR HGB CONC 33.2 g/dl (32.0-36.5); MEAN CORPUSCULAR VOLUME 80.2 fl (80.0-96.0); MONO # 1.8 10^3/uL (0.0-0.8); MONO % 13.2 % (2.0-8.0); NEUTROPHILS # 10.6 10^3/uL (1.5-8.5); NEUTROPHILS % 76.6 % (36.0-66.0); PLATELET COUNT, AUTOMATED 272 10^3/uL (150-450); RED BLOOD COUNT 5.75 10^6/uL (4.30-6.10); WHITE BLOOD COUNT 13.9 10^3/uL (4.0-10.0)
[2024-05-19 09:03] LABS: ALBUMIN 3.4 G/DL (3.2-5.2); ALKALINE PHOSPHATASE 95 U/L (46-116); ALT/SGPT 23 U/L (7.0-40); AST/SGOT 20 U/L (<34); BILIRUBIN,DIRECT 0.3 MG/DL (<0.4); BILIRUBIN,TOTAL 0.7 MG/DL (0.3-1.2); BLOOD UREA NITROGEN 25 MG/DL (9-23); CALCIUM LEVEL 9.3 MG/DL (8.3-10.6); CARBON DIOXIDE LEVEL 30 MMOL/L (20-31); CHLORIDE LEVEL 100 MMOL/L (98-107); CREATININE FOR GFR 1.21 MG/DL (0.70-1.30); GLOMERULAR FILTRATION RATE > 60.0 (>49); GLUCOSE, FASTING 125 MG/DL (74-106); POTASSIUM SERUM 3.2 MMOL/L (3.5-5.1); SODIUM LEVEL 138 MMOL/L (136-145); TOTAL PROTEIN 6.5 G/DL (5.7-8.2)
[2024-05-19] MEDS: dexAMETHasone 20MG/5ML VIAL IV ONE (09:29)
[2024-05-19] MEDS: CEFEPIME HCL 2 GM in D5W MINI-BAG PLUS 50 ML IV ONE (09:29)
[2024-05-19] MEDS: NS IV ONE (09:29)
[2024-05-19] MEDS ORDERED: ISOVUE-370 76% 100ML VIAL As Ordered ONE (09:39)
[2024-05-19] MEDS ORDERED: IPRATROPIUM 0.5MG/ALBUTEROL 2.5MG INH SOL UD 3ML (DUONEB) NEB PRN (11:10)
[2024-05-19] MEDS ORDERED: FLUT12AE3 INH (11:19)
[2024-05-19] MEDS ORDERED: AMLO1TAB25 PO (11:19)
[2024-05-19] MEDS ORDERED: ALBU2.5V10 INH (11:21)
[2024-05-19] MEDS ORDERED: HOME MED LIST COMPLETE! XX SCH (11:25)
[2024-05-19] MEDS ORDERED: ACETAMINOPHEN TAB 650MG DOSE (2X325MG) PO PRN (15:00)
[2024-05-19] MEDS: POTASSIUM CHLORIDE 10MEQ SR TABLET PO ONE (16:28)
[2024-05-19] MEDS: cefTRIAXone SOD 2 GM in D5W MINI-BAG PLUS 50 ML IV SCH (16:28)
[2024-05-19] MEDS: DOXYCYCLINE HYCLATE 100 MG in D5W MINI-BAG PLUS 100 ML IV SCH (17:24)
[2024-05-19] MEDS: LEVALBUTEROL 1.25MG 0.5ML CONCENTRATE NEB INH SCH (19:13)
[2024-05-19] MEDS: SYMBICORT 160/4.5MCG INHALER 6GM INH SCH (19:14)
[2024-05-19] MEDS: APIXABAN 5 MG TAB (ELIQUIS) PO SCH (20:59)
[2024-05-20] VITALS (22 sets, daily range): BP systolic 103–138; BP diastolic 62–77; TEMP 96.9–98.9; O2SAT 90–99
[2024-05-20 06:28] LABS: HEMATOCRIT 38.7 % (42.0-52.0); MEAN CORPUSCULAR HGB CONC 32.8 g/dl (32.0-36.5); MEAN CORPUSCULAR VOLUME 82.2 fl (80.0-96.0); PLATELET COUNT, AUTOMATED 230 10^3/uL (150-450); RED BLOOD COUNT 4.71 10^6/uL (4.30-6.10)
[2024-05-20 06:31] LABS: HEMOGLOBIN 12.7 g/dl (13.5-17.5)
[2024-05-20 06:55] LABS: BLOOD UREA NITROGEN 25 MG/DL (9-23); CALCIUM LEVEL 8.6 MG/DL (8.3-10.6); CARBON DIOXIDE LEVEL 28 MMOL/L (20-31); CHLORIDE LEVEL 108 MMOL/L (98-107); CREATININE FOR GFR 1.05 MG/DL (0.70-1.30); GLOMERULAR FILTRATION RATE > 60.0 (>49); GLUCOSE, FASTING 160 MG/DL (74-106); POTASSIUM SERUM 3.8 MMOL/L (3.5-5.1); SODIUM LEVEL 143 MMOL/L (136-145)
[2024-05-20] MEDS: TIOTROPIUM INHALER/CAPSULE (SPIRIVA) INH SCH (07:30)
[2024-05-20] MEDS: dexAMETHasone 20MG/5ML VIAL IV SCH (08:59)
[2024-05-20] MEDS: ASPIRIN 81MG ENTERIC TABLET PO SCH (08:59)
[2024-05-20] MEDS: CETIRIZINE (ZyrTEC) 10 MG TAB PO SCH (08:59)
[2024-05-20] MEDS: DOXYCYCLINE HYCLATE 100MG TABLET PO SCH (20:16)
[2024-05-21] VITALS (12 sets, daily range): BP systolic 114–119; BP diastolic 67–70; TEMP 96.9–97.3; O2SAT 89–97
[2024-05-21] MEDS ORDERED: DOXY100T PO (07:49)
[2024-05-21] MEDS ORDERED: CEFD300CAP PO (07:49)
[2024-05-21] MEDS ORDERED: PRED20TA PO (07:51)
[2024-05-22] MEDS ORDERED: predniSONE 20 MG TAB PO SCH (09:00)
== END 2024-05-21 15:43 | disposition home or self-care (01) | DRG 871 ==
LOC: EDBD 07:46 → M ED 07:46 → M ED INP 11:10 → M PCU 15:17
PROVIDERS: ADMIT Internal Medicine Nephrology; ATTEND Internal Medicine
DX: A41.9 Sepsis, unspecified organism (principal); J18.9 Pneumonia, unspecified organism; J96.11 Chronic respiratory failure with hypoxia; D68.2 Hereditary deficiency of other clotting factors; J44.1 Chronic obstructive pulmonary disease with (acute) exacerbation; J84.10 Pulmonary fibrosis, unspecified; G47.33 Obstructive sleep apnea (adult) (pediatric); R42 Dizziness and giddiness; I69.364 Other paralytic syndrome following cerebral infarction affecting left non-dominant side; Z88.5 Allergy status to narcotic agent; Z79.899 Other long term (current) drug therapy; Z79.82 Long term (current) use of aspirin; Z86.718 Personal history of other venous thrombosis and embolism; Z87.891 Personal history of nicotine dependence

== ENCOUNTER 2024-07-01 08:39 | Emergency (ER) | payer MEDICAID, MEDICARE, OTHER ==
[~2024-07-01] VITALS: Ht 177.8 cm; Wt 105.2 kg
[~2024-07-01 08:39] MED LIST changes: +AMLO1TAB25 PO; +FLUT12AE3 INH
[2024-07-01] MEDS: COMBIVENT RESPIMAT 100-20MCG INHALER 4GM INH STA (12:09)
[2024-07-01] MEDS: predniSONE 20 MG TAB PO ONE (12:24)
[2024-07-01] MEDS ORDERED: PRED10TA2 PO (13:37)
[2024-07-01] MEDS ORDERED: NIRM1TAB14 PO (13:37)
[2024-07-01] MEDS ORDERED: IPRA0.00 INH (13:38)
[2024-07-01 13:51] VITALS: O2SAT 92
[2024-07-01 14:46] VITALS: BP 119/70; TEMP 97.8; O2SAT 90
== END 2024-07-01 15:15 | disposition home or self-care (01) ==
LOC: M ED 08:39
DX: U07.1 COVID-19 (principal); J44.1 Chronic obstructive pulmonary disease with (acute) exacerbation; I10 Essential (primary) hypertension; E78.5 Hyperlipidemia, unspecified; Z86.79 Personal history of other diseases of the circulatory system; Z86.73 Personal history of transient ischemic attack (TIA), and cerebral infarction without residual deficits; Z88.5 Allergy status to narcotic agent; Z79.52 Long term (current) use of systemic steroids; Z79.01 Long term (current) use of anticoagulants; Z79.82 Long term (current) use of aspirin; Z79.811 Long term (current) use of aromatase inhibitors; Z79.899 Other long term (current) drug therapy
CPT/HCPCS: 71046; 87486; 87581; 87633; 87798; 94640; 99284; J7512

== ENCOUNTER → 2024-08-01 | Outpatient (CLI) | payer MEDICARE, OTHER ==
[~2024-08-01] MED LIST changes: +NIRM1TAB14 PO
[2024-08-01 16:56] LABS: ALBUMIN 3.7 G/DL (3.2-5.2); ALKALINE PHOSPHATASE 106 U/L (46-116); ALT/SGPT 19 U/L (7.0-40); AST/SGOT 15 U/L (<34); BILIRUBIN,TOTAL 0.5 MG/DL (0.3-1.2); BLOOD UREA NITROGEN 15 MG/DL (9-23); CALCIUM LEVEL 10.3 MG/DL (8.3-10.6); CARBON DIOXIDE LEVEL 30 MMOL/L (20-31); CHLORIDE LEVEL 105 MMOL/L (98-107); CREATININE FOR GFR 1.14 MG/DL (0.70-1.30); GLOMERULAR FILTRATION RATE > 60.0 (>49); GLUCOSE, FASTING 99 MG/DL (74-106); SODIUM LEVEL 142 MMOL/L (136-145); TOTAL PROTEIN 6.8 G/DL (5.7-8.2)
== END ==
LOC: M PLAIMG 12:23
PROVIDERS: ATTEND Student in an Organized Health Care Education/Training Program
DX: I27.20 Pulmonary hypertension, unspecified (principal); R91.8 Other nonspecific abnormal finding of lung field; I36.1 Nonrheumatic tricuspid (valve) insufficiency; R06.09 Other forms of dyspnea

== ENCOUNTER → 2024-10-30 | Outpatient (CLI) | payer MEDICARE, OTHER | LOC: M PLAIMG 11:52 | PROVIDERS: ATTEND Physician Assistant | DX: R91.8 Other nonspecific abnormal finding of lung field (principal); J43.9 Emphysema, unspecified ==

== ENCOUNTER → 2024-12-25 | Outpatient (CLI) | payer MEDICARE ==
[2024-12-25 15:07] LABS: PSA SCREENING 0.6 NG/ML (< 4.00)
[2024-12-25 15:08] LABS: ALBUMIN 4.2 G/DL (3.2-5.2); BILIRUBIN,TOTAL 0.7 MG/DL (0.3-1.2); CALCIUM LEVEL 10.1 MG/DL (8.3-10.6); CHOLESTEROL RISK RATIO 2.98 (<5); CREATININE FOR GFR 1.34 MG/DL (0.70-1.30); GLOMERULAR FILTRATION RATE 57.5 (>49); HDL CHOLESTEROL 56.6 MG/DL (>40); INR 1.05; NON-HDL-C 112.4 MG/DL; POTASSIUM SERUM 4.9 MMOL/L (3.5-5.1); TOTAL PROTEIN 7.2 G/DL (5.7-8.2)
[2024-12-25 15:18] LABS: HEMOGLOBIN A1c 5.5 % (4.0-6.0)
[2024-12-25 15:19] LABS: BASO # 0.1 10^3/uL (0.0-0.2); BASO % 0.9 % (0.0-1.0); EOS # 0.3 10^3/uL (0.0-0.5); LYMPH # 2.1 10^3/uL (1.5-5.0); LYMPH % 25.5 % (24.0-44.0); MEAN CORPUSCULAR HEMOGLOBIN 26.2 pg (27.0-33.0); MEAN CORPUSCULAR VOLUME 81.8 fl (80.0-96.0); MONO # 0.8 10^3/uL (0.0-0.8); MONO % 9.6 % (2.0-8.0); NEUTROPHILS % 60.6 % (36.0-66.0); PLATELET COUNT, AUTOMATED 232 10^3/uL (150-450); RED BLOOD COUNT 6.11 10^6/uL (4.30-6.10); WHITE BLOOD COUNT 8.2 10^3/uL (4.0-10.0)
== END ==
LOC: M PLALAB 13:01
PROVIDERS: ATTEND Student in an Organized Health Care Education/Training Program
DX: Z00.00 Encounter for general adult medical examination without abnormal findings (principal); I10 Essential (primary) hypertension; D68.51 Activated protein C resistance; E78.2 Mixed hyperlipidemia; Z79.899 Other long term (current) drug therapy; Z79.01 Long term (current) use of anticoagulants; Z12.5 Encounter for screening for malignant neoplasm of prostate
CPT/HCPCS: 36415; 80053; 80061; 83036; 85025; 85610; G0103

== ENCOUNTER → 2025-05-28 | Outpatient (CLI) | payer MEDICARE, OTHER | LOC: M SLEEP 20:00 | PROVIDERS: ATTEND Physician Assistant | DX: R06.83 Snoring (principal) ==